=== PATIENT | male | born 1945 | race Caucasian/White ===

== ENCOUNTER 2017-12-01 16:47 | Emergency (ER) | payer MEDICARE, OTHER ==
[2017-12-01] MEDS ORDERED: NORMAL SALINE 1000 ML 1,000 ML IV ONE (18:16)
--- NOTE | 2017-12-01 18:20 | ER Document Report ---
ED General - General Chief Complaint: Abnormal Lab Results Stated Complaint: POSSIBLE DEHYDRATED Time Seen by Provider: 12/01/17 18:16 Mode of Arrival: Ambulatory Information source: Patient Notes: 72 yr old male was sent in by pcp for concern for dehydration. Pt notes he has poor diet, denies any vomiting or diarrhea. Pt noted ot have normal .8 cr but on recheck labs was up to 1.7. pt denies any complaints TRAVEL OUTSIDE OF THE [place] IN LAST 30 DAYS: No - HPI Onset: Last week Onset/Duration: Sudden Quality of pain: No pain Severity: Mild Pain Level: Denies Associated symptoms: Other Exacerbated by: Denies Relieved by: Denies Similar symptoms previously: Yes Recently seen / treated by doctor: Yes - Related Data Allergies/Adverse Reactions: No Known Allergies Allergy (Verified 12/01/17 16:48) Past Medical History - Social History Smoking Status: Never Smoker Cigarette use (# per day): No Chew tobacco use (# tins/day): No Smoking Education Provided: No Frequency of alcohol use: 6 pack every other week Drug Abuse: None Family History: Reviewed & Not Pertinent Patient has suicidal ideation: No Patient has homicidal ideation: No - Past Medical History Cardiac Medical History: Reports: Hx Hypertension Pulmonary Medical History: Reports: Hx COPD Renal/ Medical History: Denies: Hx Peritoneal Dialysis GI Medical History: Reports: Hx Cirrhosis, Hx Gastroesophageal Reflux Disease Psychiatric Medical History: Reports: Hx Depression Past Surgical History: Reports: Hx Orthopedic Surgery - Back Sx x2 - Immunizations Hx Diphtheria, Pertussis, Tetanus Vaccination: Yes Review of Systems - Review of Systems Notes: REVIEW OF SYSTEMS: CONSTITUTIONAL : Denies fever, chills, or sweats. Denies recent illness. EENT: Denies eye, ear, throat, or mouth pain or symptoms. Denies nasal or sinus congestion or discharge. Denies throat, tongue, or mouth swelling or difficulty swallowing. CARDIOVASCULAR: Denies chest pain. Denies palpitations or racing or irregular heart beat. Denies ankle edema. RESPIRATORY: Denies cough, cold, or chest congestion. Denies shortness of breath, difficulty breathing, or wheezing. GASTROINTESTINAL: Admits to poor appetite GENITOURINARY: Denies difficulty urinating, painful urination, burning, frequency, blood in urine, or discharge. MUSCULOSKELETAL: Denies back or neck pain or stiffness. Denies joint pain or swelling. SKIN: Denies rash, lesions or sores. HEMATOLOGIC : Denies easy bruising or bleeding. LYMPHATIC: Denies swollen, enlarged glands. NEUROLOGICAL: Denies confusion or altered mental status. Denies passing out or loss of consciousness. Denies dizziness or lightheadedness. Denies headache. Denies weakness or paralysis or loss of use of either side. Denies problems with gait or speech. Denies sensory loss, numbness, or tingling. Denies seizures. PSYCHIATRIC: Denies anxiety or stress. Denies depression, suicidal ideation, or homicidal ideation. ALL OTHER SYSTEMS REVIEWED AND NEGATIVE. Dictation was performed using [employer] voice recognition software PHYSICAL EXAMINATION: GENERAL: Well-appearing, well-nourished and in no acute distress. HEAD: Atraumatic, normocephalic. EYES: Pupils equal round and reactive to light, extraocular movements intact, sclera anicteric, conjunctiva are normal. ENT: Nares patent, oropharynx clear without exudates. Moist mucous membranes. NECK: Normal range of motion, supple without lymphadenopathy LUNGS: Breath sounds clear to auscultation bilaterally and equal. No wheezes rales or rhonchi. HEART: Regular rate and rhythm without murmurs ABDOMEN: Soft, nontender, nondistended abdomen. No guarding, no rebound. No masses appreciated. Musculoskeletal: Normal range of motion, no pitting or edema. No cyanosis. NEUROLOGICAL: Cranial nerves grossly intact. Normal speech, normal gait. Normal sensory, motor exams PSYCH: Normal mood, normal affect. SKIN: Warm, Dry, normal turgor, no rashes or lesions noted. Physical Exam - Vital signs Vitals: Temp Pulse Resp BP Pulse Ox 98.3 F 67 16 118/64 97 12/01/17 17:11 12/01/17 17:11 12/01/17 17:11 12/01/17 17:11 12/01/17 17:11 Course - Re-evaluation Re-evalutation: 12/01/17 18:22 Lab work pending I will give the patient IV fluids at primary care physician's request 12/01/17 20:17 Patient's creatinine is noted to be 1.0, this is significantly better than that creatinine was 1.7 that was reported by primary care physician. Patient otherwise looks well is in no distress, he was given IV fluids and I believe he is stable for discharge, we discussed ammonia levels as well as liver enzymes, patient has been encouraged to decrease his alcohol intake After performing a Medical Screening Examination, I estimate there is LOW risk for ACUTE APPENDICITIS, BOWEL OBSTRUCTION, ACUTE CHOLECYSTITIS, PERFORATED DIVERTICULITIS, INCARCERATED HERNIA, PANCREATITIS, TESTICULAR TORSION or PERFORATED ULCER, thus I consider the discharge disposition reasonable. Also, there is no evidence or peritonitis, sepsis, or toxicity. I have reevaluated this patient multiple times and no significant life threatening changes are noted. The patient and I have discussed the diagnosis and risks, and we agree with discharging home with close follow-up with the understanding that symptoms and presentations can change. We also discussed returning to the Emergency Department immediately if new or worsening symptoms occur. We have discussed the symptoms which are most concerning (e.g., bloody stool, fever, changing or worsening pain, intractable vomiting - standard verbal up date) that necessitate immediate return. - Vital Signs Vital signs: Temp Pulse Resp BP Pulse Ox 97.7 F 67 16 148/69 H 98 12/01/17 19:32 12/01/17 19:32 12/01/17 19:32 12/01/17 19:32 12/01/17 19:32 - Laboratory Result Diagrams: 12/01/17 18:43 12/01/17 18:43 Laboratory results interpreted by me: 12/01/17 12/01/17 18:43 18:43 RBC 3.79 L Hgb 12.8 L Hct 37.2 L MCV 98 H MCH 33.8 H RDW 15.5 H Plt Count 101 L Sodium 132.2 L Potassium 3.4 L Chloride 95 L Total Bilirubin 2.8 H Direct Bilirubin 1.8 H AST 125 H ALT 75 H Alkaline Phosphatase 321 H Discharge - Discharge Clinical Impression: Dehydration, Elevated liver enzymes Condition: Stable Disposition: HOME, SELF-CARE Instructions: Dehydration ([facility]) Additional Instructions: Follow up with your physician tomorrow for further care or return to the ED IMMEDIATELY if symptoms worsen or new concerns occur. If you cannot afford to follow up with your primary care physician a list of low cost clinics have been provided at the end of your discharge papers as well.
[2017-12-01 18:52] LABS: ABSOLUTE BASOPHILS # (AUTO) 0.1 10^3/uL (0.0-0.2); ABSOLUTE EOSINOPHILS # (AUTO) 0.1 10^3/uL (0.0-0.6); ABSOLUTE LYMPHOCYTES (AUTO) 1.2 10^3/uL (0.5-4.7); ABSOLUTE MONOCYTES (AUTO) 0.5 10^3/uL (0.1-1.4); ABSOLUTE NEUT (AUTO) 3.3 10^3/uL (1.7-8.2); BASOPHILS % (AUTO) 1.5 % (0-2); EOSINOPHILS % (AUTO) 2.9 % (0-6); HEMATOCRIT 37.2 % (37.9-51.0); HEMOGLOBIN 12.8 g/dL (13.5-17.0); LYMPHOCYTES % (AUTO) 22.6 % (13-45); MEAN CORPUSCULAR HEMOGLOBIN 33.8 pg (27.0-33.4); MEAN CORPUSCULAR HGB CONC 34.4 g/dL (32.0-36.0); MEAN CORPUSCULAR VOLUME 98 fl (80-97); MONOCYTES % (AUTO) 9.7 % (3-13); PLATELET COUNT 101 10^3/uL (150-450); RED BLOOD COUNT 3.79 10^6/uL (4.35-5.55); RED CELL DISTRIBUTION WIDTH 15.5 % (11.5-14.0); SEGMENTED NEUTROPHILS % (AUTO) 63.3 % (42-78); TOTAL CELLS COUNTED % (AUTO) 100 %; WHITE BLOOD COUNT 5.2 10^3/uL (4.0-10.5)
[2017-12-01 19:22] LABS: ALANINE AMINOTRANSFERASE 75 U/L (21-72); ALBUMIN 3.9 g/dL (3.5-5.0); ALKALINE PHOSPHATASE 321 U/L (38-126); ANION GAP 11 (5-19); ASPARTATE AMINO TRANSFERASE 125 U/L (17-59); BILIRUBIN,DIRECT 1.8 mg/dL (0.0-0.4); BILIRUBIN,TOTAL 2.8 mg/dL (0.2-1.3); BLOOD UREA NITROGEN 15 mg/dL (7-20); CALCIUM 9.3 mg/dL (8.4-10.2); CARBON DIOXIDE 26 mmol/L (22-30); CHLORIDE 95 mmol/L (98-107); GLUCOSE 92 mg/dL (75-110); POTASSIUM 3.4 mmol/L (3.6-5.0); SODIUM 132.2 mmol/L (137-145)
[2017-12-01 19:35] VITALS: BP 148/69
== END 2017-12-01 19:34 | disposition home or self-care (01) ==
LOC: ER 16:47
DX: E86.0 Dehydration (principal); R74.8 Abnormal levels of other serum enzymes; I10 Essential (primary) hypertension; J44.9 Chronic obstructive pulmonary disease, unspecified
CPT/HCPCS: 99283; 96360; 36415; 85025; 80053; J7030

== ENCOUNTER 2018-03-20 15:04 | Inpatient (IN) | payer MEDICARE, OTHER ==
--- NOTE | 2018-03-20 16:24 | ER Document Report ---
ED Medical Screen (RME) - General Chief Complaint: Alcohol Withdrawl Stated Complaint: STOMACH PAIN Time Seen by Provider: 03/20/18 16:15 Notes: RAPID MEDICAL EVALUATION DISCLOSURE I have seen this patient as part of a Rapid Medical Evaluation and, if applicable, placed any initially appropriate orders. The patient will be seen and fully evaluated, including a full history and physical exam, by a provider ( in Main ED or Fast Track) when a room becomes available. 72-year-old male PMH EtOH abuse (approximately 6-12 beers daily for many years) sent here by his physician for evaluation of hallucinations and possible alcohol withdrawal. Patient had his last drink approximately 4-5 days ago. He has been having visual hallucinations including a woman standing in his bedroom all night watching him, a tractor in his front yard, a group of soldiers marching down the street (patient's states none of these things happen). He is also having auditory hallucinations including thinking that the AC is blowing air when it is turned off and that the water is running when it is turned off. He denies any abdominal pain tremors fevers chills dysuria. EXAM Clear to auscultation bilaterally Regular rate and rhythm no abdominal tenderness No peripheral tremors or active hallucinations TRAVEL OUTSIDE OF THE [place] IN LAST 30 DAYS: No - Related Data Allergies/Adverse Reactions: No Known Allergies Allergy (Verified 12/01/17 16:48) Past Medical History - Past Medical History Cardiac Medical History: Reports: Hx Hypertension Pulmonary Medical History: Reports: Hx COPD Renal/ Medical History: Denies: Hx Peritoneal Dialysis GI Medical History: Reports: Hx Cirrhosis, Hx Gastroesophageal Reflux Disease Psychiatric Medical History: Reports: Hx Depression Past Surgical History: Reports: Hx Orthopedic Surgery - Back Sx x2 - Immunizations Hx Diphtheria, Pertussis, Tetanus Vaccination: Yes Physical Exam - Vital signs Vitals: Temp Pulse Resp BP Pulse Ox 97.8 F 79 14 123/81 96 03/20/18 15:16 03/20/18 15:16 03/20/18 15:16 03/20/18 15:16 03/20/18 15:16 Course - Vital Signs Vital signs: Temp Pulse Resp BP Pulse Ox 97.8 F 79 14 123/81 96 03/20/18 15:16 03/20/18 15:16 03/20/18 15:16 03/20/18 15:16 03/20/18 15:16
[2018-03-20 17:14] LABS: ABSOLUTE LYMPHOCYTES (AUTO) 0.8 10^3/uL (0.5-4.7); ABSOLUTE MONOCYTES (AUTO) 0.5 10^3/uL (0.1-1.4); ABSOLUTE NEUT (AUTO) 4.1 10^3/uL (1.7-8.2); BASOPHILS % (AUTO) 0.5 % (0-2); EOSINOPHILS % (AUTO) 0.5 % (0-6); HEMATOCRIT 38.3 % (37.9-51.0); HEMOGLOBIN 12.9 g/dL (13.5-17.0); LYMPHOCYTES % (AUTO) 14.5 % (13-45); MEAN CORPUSCULAR HEMOGLOBIN 33.8 pg (27.0-33.4); MEAN CORPUSCULAR HGB CONC 33.8 g/dL (32.0-36.0); MEAN CORPUSCULAR VOLUME 100 fl (80-97); MONOCYTES % (AUTO) 8.5 % (3-13); RED BLOOD COUNT 3.83 10^6/uL (4.35-5.55); RED CELL DISTRIBUTION WIDTH 14.1 % (11.5-14.0); TOTAL CELLS COUNTED % (AUTO) 100 %; WHITE BLOOD COUNT 5.4 10^3/uL (4.0-10.5)
[2018-03-20 17:16] LABS: PLATELET COUNT 84 10^3/uL (150-450)
[2018-03-20 17:32] LABS: ALANINE AMINOTRANSFERASE 57 U/L (21-72); ALKALINE PHOSPHATASE 310 U/L (38-126); ANION GAP 14 (5-19); ASPARTATE AMINO TRANSFERASE 120 U/L (17-59); BILIRUBIN,DIRECT 1.6 mg/dL (0.0-0.4); BILIRUBIN,TOTAL 3.3 mg/dL (0.2-1.3); BLOOD UREA NITROGEN 13 mg/dL (7-20); CALCIUM 9.6 mg/dL (8.4-10.2); CARBON DIOXIDE 30 mmol/L (22-30); CHLORIDE 93 mmol/L (98-107); GLUCOSE 85 mg/dL (75-110); POTASSIUM 3.3 mmol/L (3.6-5.0); SALICYLATE 9.4 mg/dL (2.0-20.0); SODIUM 137.2 mmol/L (137-145); TOTAL PROTEIN 8.3 g/dL (6.3-8.2)
[2018-03-20 17:33] LABS: ACETAMINOPHEN < 10 ug/mL (10-30); ALCOHOL < 10 mg/dL (NONE DETECTED)
[2018-03-20] MEDS ORDERED: THIAMINE HCL 100 MG, FOLIC ACID 1 MG in NORMAL SALINE 250 ML IV ONE (18:33)
[2018-03-20] MEDS ORDERED: LORAZEPAM INJ 2 MG/1 ML VIAL IV ONE (18:33)
--- NOTE | 2018-03-20 18:53 | ER Document Report ---
ED General - General Chief Complaint: Alcohol Withdrawl Stated Complaint: STOMACH PAIN Time Seen by Provider: 03/20/18 16:15 Mode of Arrival: Ambulatory Information source: Patient Notes: 72-year-old male with a history of COPD, hypertension, alcohol abuse presents with visual and auditory hallucinations. Patient states that he wants to quit drinking. He states his last drink was 4 days ago. He admits to heavy drinking over the last 30-40 years. He states that he was drinking 6-12 beers on a consistent basis. Patient denies prior history of alcohol withdrawal. is at the bedside and states patient has been hallucinating, seeing men in his room, tractors in the driveway and complaining of hearing the air conditioning blowing in his ear. He denies any tactile hallucinations. reports that the patient has had multiple falls over the last few days. He is alert and oriented 3. He denies any headache, nausea, vomiting, tremors. He states "I just want to get some medication and go home". TRAVEL OUTSIDE OF THE [place] IN LAST 30 DAYS: No - Related Data Allergies/Adverse Reactions: No Known Allergies Allergy (Verified 12/01/17 16:48) Past Medical History - General Information source: Patient, Relative - Social History Smoking Status: Former Smoker Frequency of alcohol use: Heavy Drug Abuse: None Lives with: Spouse/Significant other Family History: Reviewed & Not Pertinent Patient has suicidal ideation: No Patient has homicidal ideation: No - Past Medical History Cardiac Medical History: Reports: Hx Hypertension Pulmonary Medical History: Reports: Hx COPD Renal/ Medical History: Denies: Hx Peritoneal Dialysis GI Medical History: Reports: Hx Cirrhosis, Hx Gastroesophageal Reflux Disease Psychiatric Medical History: Reports: Hx Depression Past Surgical History: Reports: Hx Orthopedic Surgery - Back Sx x2 - Immunizations Hx Diphtheria, Pertussis, Tetanus Vaccination: Yes Review of Systems - Review of Systems Notes: Patient denies fever, chills, vomiting, headache, ear pain, sore throat, cough, chest pain, shortness of breath, abdominal pain, back pain, dysuria, hematuria, rash, SI/HI. Physical Exam - Vital signs Vitals: Temp Pulse Resp BP Pulse Ox 97.8 F 79 14 123/81 96 03/20/18 15:16 03/20/18 15:16 03/20/18 15:16 03/20/18 15:16 03/20/18 15:16 Interpretation: Normal. No: Hypotensive, Hypertensive, Febrile - Notes Notes: PHYSICAL EXAMINATION: GENERAL: Frail, alert in no acute distress. HEAD: Atraumatic, normocephalic. EYES: Pupils equal round and reactive to light, extraocular movements intact, sclera anicteric, conjunctiva are normal. ENT: Nares patent, oropharynx clear without exudates. dry mucous membranes. NECK: Normal range of motion, supple without lymphadenopathy LUNGS: Breath sounds clear to auscultation bilaterally and equal. No wheezes rales or rhonchi. HEART: Regular rate and rhythm without murmurs ABDOMEN: Soft, nontender, nondistended abdomen. No guarding, no rebound. No masses appreciated. Musculoskeletal: Ecchymosis of the right elbow, right clavicle. NEUROLOGICAL: Tremulous ,cranial nerves grossly intact. Normal speech, normal gait. Normal sensory, motor exams PSYCH: Normal mood, normal affect. Denies SI, HI. Admits to auditory and visual hallucinations. SKIN: Warm, Dry, normal turgor, no rashes or lesions noted. Course - Re-evaluation Re-evalutation: Laboratory 03/20/18 03/20/18 03/20/18 16:43 16:43 16:43 WBC 5.4 RBC 3.83 L Hgb 12.9 L Hct 38.3 MCV 100 H MCH 33.8 H MCHC 33.8 RDW 14.1 H Plt Count 84 L Seg Neutrophils % 76.0 Lymphocytes % 14.5 Monocytes % 8.5 Eosinophils % 0.5 Basophils % 0.5 Absolute Neutrophils 4.1 Absolute Lymphocytes 0.8 Absolute Monocytes 0.5 Absolute Eosinophils 0.0 Absolute Basophils 0.0 Sodium 137.2 Potassium 3.3 L Chloride 93 L Carbon Dioxide 30 Anion Gap 14 BUN 13 Creatinine 1.10 Est GFR ( Amer) > 60 Est GFR (Non-Af Amer) > 60 Glucose 85 Calcium 9.6 Total Bilirubin 3.3 H Direct Bilirubin 1.6 H Neonat Total Bilirubin Not Reportable Neonat Direct Bilirubin Not Reportable Neonat Indirect Bili Not Reportable AST 120 H ALT 57 Alkaline Phosphatase 310 H Ammonia Creatine Kinase 129 CK-MB (CK-2) Troponin I Total Protein 8.3 H Albumin 4.0 Lipase 116.0 Urine Color Urine Appearance Urine pH Ur Specific [place] Urine Protein Urine Glucose (UA) Urine Ketones Urine Blood Urine Nitrite Urine Bilirubin Urine Urobilinogen Ur Leukocyte Esterase Urine WBC (Auto) Urine RBC (Auto) U Hyaline Cast (Auto) Squamous Epi Cells Auto Urine Mucus (Auto) Urine Ascorbic Acid Salicylates 9.4 Urine Opiates Screen Urine Methadone Screen Acetaminophen < 10 L Ur Barbiturates Screen Ur Phencyclidine Scrn Ur Amphetamines Screen U Benzodiazepines Scrn Urine Cocaine Screen U Marijuana (THC) Screen Serum Alcohol < 10 03/20/18 03/20/18 03/20/18 16:43 16:43 21:15 WBC RBC Hgb Hct MCV MCH MCHC RDW Plt Count Seg Neutrophils % Lymphocytes % Monocytes % Eosinophils % Basophils % Absolute Neutrophils Absolute Lymphocytes Absolute Monocytes Absolute Eosinophils Absolute Basophils Sodium Potassium Chloride Carbon Dioxide Anion Gap BUN Creatinine Est GFR ( Amer) Est GFR (Non-Af Amer) Glucose Calcium Total Bilirubin Direct Bilirubin Neonat Total Bilirubin Neonat Direct Bilirubin Neonat Indirect Bili AST ALT Alkaline Phosphatase Ammonia Creatine Kinase CK-MB (CK-2) 1.36 Troponin I < 0.012 Total Protein Albumin Lipase Urine Color YELLOW Urine Appearance SLIGHTLY-CLOUDY Urine pH 7.0 Ur Specific [place] 1.011 Urine Protein NEGATIVE Urine Glucose (UA) NEGATIVE Urine Ketones TRACE H Urine Blood SMALL H Urine Nitrite NEGATIVE Urine Bilirubin NEGATIVE Urine Urobilinogen 4.0 H Ur Leukocyte Esterase LARGE H Urine WBC (Auto) 82 Urine RBC (Auto) 3 U Hyaline Cast (Auto) 2 Squamous Epi Cells Auto <1 Urine Mucus (Auto) RARE Urine Ascorbic Acid NEGATIVE Salicylates Urine Opiates Screen Urine Methadone Screen Acetaminophen Ur Barbiturates Screen Ur Phencyclidine Scrn Ur Amphetamines Screen U Benzodiazepines Scrn Urine Cocaine Screen U Marijuana (THC) Screen Serum Alcohol 03/20/18 03/20/18 21:15 22:00 WBC RBC Hgb Hct MCV MCH MCHC RDW Plt Count Seg Neutrophils % Lymphocytes % Monocytes % Eosinophils % Basophils % Absolute Neutrophils Absolute Lymphocytes Absolute Monocytes Absolute Eosinophils Absolute Basophils Sodium Potassium Chloride Carbon Dioxide Anion Gap BUN Creatinine Est GFR ( Amer) Est GFR (Non-Af Amer) Glucose Calcium Total Bilirubin Direct Bilirubin Neonat Total Bilirubin Neonat Direct Bilirubin Neonat Indirect Bili AST ALT Alkaline Phosphatase Ammonia 14.4 Creatine Kinase CK-MB (CK-2) Troponin I Total Protein Albumin Lipase Urine Color Urine Appearance Urine pH Ur Specific [place] Urine Protein Urine Glucose (UA) Urine Ketones Urine Blood Urine Nitrite Urine Bilirubin Urine Urobilinogen Ur Leukocyte Esterase Urine WBC (Auto) Urine RBC (Auto) U Hyaline Cast (Auto) Squamous Epi Cells Auto Urine Mucus (Auto) Urine Ascorbic Acid Salicylates Urine Opiates Screen NEGATIVE Urine Methadone Screen NEGATIVE Acetaminophen Ur Barbiturates Screen NEGATIVE Ur Phencyclidine Scrn NEGATIVE Ur Amphetamines Screen NEGATIVE U Benzodiazepines Scrn NEGATIVE Urine Cocaine Screen NEGATIVE U Marijuana (THC) Screen NEGATIVE Serum Alcohol 03/20/18 23:17 72-year-old male with known alcoholism presents with visual and auditory hallucinations. Patient states that he wants to quit drinking. He states his last drink was 4 days prior to arrival. is at the bedside and states patient has had multiple falls and has been hallucinating for the last 2 days. Upon arrival vitals were reviewed. EKG shows patient to be in normal sinus rhythm. Exam is significant for mild tremors, active hallucinations. Patient received IV fluids, Ativan 2 mg IV. He continued to have hallucinations and became more tremulous. Valium 10 mg was then administered. Patient has elevated liver enzymes. Ammonia level is within normal limits. Urinalysis is consistent with urinary tract infection. Rocephin ordered. Patient will be admitted for alcohol withdrawal. - Vital Signs Vital signs: Temp Pulse Resp BP Pulse Ox 97.7 F 79 16 109/58 L 97 03/20/18 23:05 03/20/18 23:05 03/20/18 23:05 03/20/18 23:05 03/20/18 23:05 - Laboratory Result Diagrams: 03/20/18 16:43 03/20/18 16:43 Laboratory results interpreted by me: 03/20/18 03/20/18 16:43 16:43 RBC 3.83 L Hgb 12.9 L MCV 100 H MCH 33.8 H RDW 14.1 H Plt Count 84 L Potassium 3.3 L Chloride 93 L Total Bilirubin 3.3 H Direct Bilirubin 1.6 H AST 120 H Alkaline Phosphatase 310 H Total Protein 8.3 H Acetaminophen < 10 L - Diagnostic Test Radiology reviewed: Image reviewed, Reports reviewed - EKG Interpretation by Mo EKG shows normal: Sinus rhythm Rate: Normal Rhythm: NSR Discharge - Discharge Clinical Impression: Elevated alkaline phosphatase level, Alcohol withdrawal delirium UTI (urinary tract infection) Qualifiers: Urinary tract infection type: site unspecified Hematuria presence: without hematuria Qualified Code(s): N39.0 - Urinary tract infection, site not specified Alcohol dependence Qualifiers: Substance use status: in withdrawal Complication of substance-induced condition : with delirium Qualified Code(s): F10.231 - Alcohol dependence with withdrawal delirium Condition: Fair Disposition: ADMITTED INPATIENT Admitting Provider: Hospitalist Unit Admitted: [facility]
--- NOTE | 2018-03-20 19:08 | RADIOLOGY REPORT (SQ) ---
EXAM DESCRIPTION: ELBOW RIGHT AP/LAT COMPLETED DATE/TIME: 03/20/2018 6:56 pm REASON FOR STUDY: fall COMPARISON: None. NUMBER OF VIEWS: Two views. TECHNIQUE: AP and lateral radiographic images acquired of the right elbow. LIMITATIONS: None. FINDINGS: MINERALIZATION: Normal. BONES: No acute fracture or dislocation. No worrisome bone lesions. JOINT: No effusion. SOFT TISSUES: No soft tissue swelling. No foreign body. OTHER: No other significant finding. IMPRESSION: NEGATIVE STUDY OF THE RIGHT ELBOW. NO RADIOGRAPHIC EVIDENCE OF ACUTE INJURY. TECHNICAL DOCUMENTATION: JOB ID: [id number] [employer]- All Rights Reserved Reading location - IP/workstation name: [email or web address]
--- NOTE | 2018-03-20 19:11 | RADIOLOGY REPORT (SQ) ---
EXAM DESCRIPTION: CLAVICLE RIGHT COMPLETED DATE/TIME: 03/20/2018 6:56 pm REASON FOR STUDY: pain/fall COMPARISON: None. NUMBER OF VIEWS: Two views. TECHNIQUE: Frontal and angled images were acquired of the right clavicle. LIMITATIONS: None. FINDINGS: MINERALIZATION: Normal. BONES: Old right proximal clavicle fracture. SOFT TISSUES: No obvious swelling or foreign body. OTHER: No other significant finding. IMPRESSION: Old clavicular fracture. No acute abnormality. TECHNICAL DOCUMENTATION: JOB ID: [id number] [employer] - [employer]- All Rights Reserved Reading location - IP/workstation name: [email or web address]
--- NOTE | 2018-03-20 19:12 | RADIOLOGY REPORT (SQ) ---
EXAM DESCRIPTION: CHEST 2 VIEWS COMPLETED DATE/TIME: 03/20/2018 6:56 pm REASON FOR STUDY: fall COMPARISON: 02/01/2014 EXAM PARAMETERS: NUMBER OF VIEWS: two views TECHNIQUE: Digital Frontal and Lateral radiographic views of the chest acquired. RADIATION DOSE: NA LIMITATIONS: none FINDINGS: LUNGS AND PLEURA: No opacities, masses or pneumothorax. No pleural effusion. MEDIASTINUM AND HILAR STRUCTURES: No masses or contour abnormalities. HEART AND VASCULAR STRUCTURES: Heart normal size. No evidence for failure. BONES: Old fracture of the proximal right clavicle. Compression changes in the mid thoracic spine wi th kyphoplasty. HARDWARE: None in the chest. OTHER: No other significant finding. IMPRESSION: NO ACUTE RADIOGRAPHIC FINDING IN THE CHEST. TECHNICAL DOCUMENTATION: JOB ID: [id number] [employer]- All Rights Reserved Reading location - IP/workstation name: [email or web address]
--- NOTE | 2018-03-20 19:16 | RADIOLOGY REPORT (SQ) ---
EXAM DESCRIPTION: CT HEAD WITHOUT COMPLETED DATE/TIME: 03/20/2018 7:05 pm REASON FOR STUDY: confusion COMPARISON: MR 06/05/2013 CT 06/04/2013 TECHNIQUE: Axial images acquired through the brain without intravenous contrast. Images reviewed wi th bone, brain and subdural windows. Additional sagittal and coronal reconstructions were generated. Images stored on PACS. All CT scanners at this facility use dose modulation, iterative reconstruction, and/or weight based d osing when appropriate to reduce radiation dose to as low as reasonably achievable (ALARA). [facility]: Dose Right [facility]: CareDose [facility]: Dose Right [facility]: Teradose 4D [facility]: [employer] RADIATION DOSE: CT Rad equipment meets quality standard of care and radiation dose reduction techniq ues were employed. CTDIvol: 53.2 mGy. DLP: 991 mGy-cm. mGy. LIMITATIONS: None. FINDINGS: VENTRICLES: Normal size and contour. CEREBRUM: Cortical atrophy. No masses. No hemorrhage. No midline shift. No evidence for acute inf arction. Normal buck/white matter differentiation. No areas of low density in the white matter. CEREBELLUM: No masses. No hemorrhage. No alteration of density. No evidence for acute infarction. EXTRAAXIAL SPACES: No fluid collections. No masses. ORBITS AND GLOBE: No intra- or extraconal masses. Normal contour of globe without masses. CALVARIUM: No fracture. PARANASAL SINUSES: No fluid or mucosal thickening. SOFT TISSUES: No mass or hematoma. OTHER: No other significant finding. IMPRESSION: Involutional changes with no acute intracranial imaging findings. EVIDENCE OF ACUTE STROKE: NO. COMMENT: Quality ID # [id number]: Final reports with documentation of one or more dose reduction techniques (e.g., Automated exposure control, adjustment of the mA and/or kV according to patient size, use of iterative reconstruction technique) TECHNICAL DOCUMENTATION: JOB ID: [id number] [employer]- All Rights Reserved Reading location - IP/workstation name: [email or web address]
[2018-03-20] MEDS ORDERED: NORMAL SALINE 1000 ML 1,000 ML IV ONE (20:30)
[2018-03-20] MEDS ORDERED: DIAZEPAM INJ 10 MG/2 ML DISP.SYRIN IV ONE (20:31)
[2018-03-20] MEDS ORDERED: ONDANSETRON HCL INJ/PF 4 MG/2 ML SDV IV PRN (20:52)
[2018-03-20] MEDS ORDERED: HALOPERIDOL LACTATE INJ 5 MG/1 ML VIAL IV PRN (21:00)
[2018-03-20] MEDS ORDERED: HALOPERIDOL LACTATE INJ 5 MG/1 ML VIAL IM ONE (21:00)
[2018-03-20] MEDS ORDERED: LORAZEPAM INJ 2 MG/1 ML VIAL IV PRN (21:02)
[2018-03-20 21:40] LABS: APPEARANCE,URINE SLIGHTLY-CLOUDY; BILIRUBIN,URINE NEGATIVE (NEGATIVE); COLOR,URINE YELLOW; GLUCOSE, URINE NEGATIVE (NEGATIVE); KETONES,URINE TRACE mg/dL (NEGATIVE); LEUKOCYTE ESTERASE,URINE LARGE (NEGATIVE); NITRITE,URINE NEGATIVE (NEGATIVE); PROTEIN,URINE NEGATIVE (NEGATIVE); URINE SPECIFIC GRAVITY 1.011
[2018-03-20 21:52] LABS: URINE AMPHETAMINES SCREEN NEGATIVE; URINE BARBITURATES SCREEN NEGATIVE; URINE BENZODIAZEPINES SCREEN NEGATIVE; URINE COCAINE SCREEN NEGATIVE; URINE MARIJUANA (THC) SCREEN NEGATIVE; URINE METHADONE SCREEN NEGATIVE; URINE PHENCYCLIDINE SCREEN NEGATIVE
--- NOTE | 2018-03-20 22:01 | PDOC H&P ---
History of Present Illness Admission Date/PCP: 03/20/18 21:06 History of Present Illness: JEANNINE LAZO JR is a 72 year old male patient with past medical history of HTN, COPD, cirrhosis of the liver and alcohol dependence brought by his for confusion and visual hallucination. During my encounter patient is agitated and trying to get out of bed so is not source of history brief history is obtained from his and ER attending note. Per ER attending note patient states that his last drink was 4 days ago he admits to heavy drinking over the last 13 years. He states that he was drinking 6-12 cans of beer per day despite having cirrhosis of the liver. Per his patient has been hallucinating seeing men in his room, tractor since then traveling into complaining of hearing the air conditioning blowing in his ear she also reports this patient has had multiple falls over the last few days. Further history and review of system is unobtainable. Past Medical History Cardiac Medical History: Reports: Hypertension Pulmonary Medical History: Reports: Chronic Obstructive Pulmonary Disease (COPD) GI Medical History: Reports: Cirrhosis, Gastroesophageal Reflux Disease Psychiatric Medical History: Reports: Depression Past Surgical History Past Surgical History: Reports: Orthopedic Surgery - Back Sx x2 Social History Lives with: Spouse/Significant other Smoking Status: Former Smoker Frequency of Alcohol Use: Heavy Family History Family History: Reviewed & Not Pertinent, Other - Unobtainable Parental Family History Reviewed: Yes Children Family History Reviewed: Yes Sibling(s) Family History Reviewed.: Yes Medication/Allergy Home Medications: Omeprazole [Prilosec 20 mg Capsule] 20 mg PO DAILY 04/23/13 Fluoxetine HCl [Prozac 20 mg Capsule] 40 mg PO QHS 06/02/13 Aripiprazole [Abilify 5 mg Tablet] 5 mg PO DAILY 06/05/13 Finasteride [Proscar 5 mg Tablet] 5 mg PO DAILY 06/05/13 Hyoscyamine Sulfate 0.125 mg PO BID 06/05/13 Megestrol Acetate 40 mg PO BID 06/05/13 Thiamine HCl [Vitamin B-1] 100 mg PO DAILY 06/05/13 Atenolol [Tenormin 25 mg Tablet] 50 mg PO DAILY #0 06/06/13 Nifedipine [Procardia XL 30 mg Tablet] 30 mg PO Q12 #60 tab.er.24 06/06/13 Potassium Chloride [K-Tab] 40 meq PO DAILY 06/07/13 Oxycodone HCl/Acetaminophen [Percocet 5-325 mg Tablet] 1 - 2 tab PO Q4H PRN #10 tablet 10/30/14 Allergies/Adverse Reactions: No Known Allergies Allergy (Verified 12/01/17 16:48) Review of Systems ROS unobtainable: Due to mental status Physical Exam Vital Signs: Temp Pulse Resp BP Pulse Ox 97.8 F 79 18 131/99 H 98 03/20/18 15:16 03/20/18 15:16 03/20/18 20:31 03/20/18 20:31 03/20/18 20:31 Intake & Output 03/19/18 03/20/18 03/21/18 06:59 06:59 06:59 Output Total 475 Balance -475 General appearance: PRESENT: mild distress Eye exam: PRESENT: scleral icterus Respiratory exam: PRESENT: clear to auscultation jacky. ABSENT: rales, rhonchi, wheezes Cardiovascular exam: PRESENT: RRR. ABSENT: diastolic murmur, rubs, systolic murmur GI/Abdominal exam: PRESENT: other - No ascites Psychiatric exam: PRESENT: agitated Results Laboratory Results: 03/20/18 21:15 Urine Color YELLOW Urine Appearance SLIGHTLY-CLOUDY Urine pH 7.0 Ur Specific [place] 1.011 Urine Protein NEGATIVE Urine Glucose (UA) NEGATIVE Urine Ketones TRACE H Urine Blood SMALL H Urine Nitrite NEGATIVE Ur Leukocyte Esterase LARGE H Urine WBC (Auto) 82 Urine RBC (Auto) 3 Impressions: Chest X-Ray 03/20/18 18:34 IMPRESSION: NO ACUTE RADIOGRAPHIC FINDING IN THE CHEST. Clavicle X-Ray 03/20/18 18:34 IMPRESSION: Old clavicular fracture. No acute abnormality. Elbow X-Ray 03/20/18 18:34 IMPRESSION: NEGATIVE STUDY OF THE RIGHT ELBOW. NO RADIOGRAPHIC EVIDENCE OF ACUTE INJURY. Head CT 03/20/18 18:34 IMPRESSION: Involutional changes with no acute intracranial imaging findings. EVIDENCE OF ACUTE STROKE: NO. Assessment & Plan - Diagnosis (1) Hepatic encephalopathy Is this a current diagnosis for this admission?: Yes Plan: Patient has been started on lactulose and thiamine was folic acid. Ativan 2 mg IV every 2 hours as needed, Haldol 5 mg every 4 hours as needed and diazepam 10 mg p.o. every 6 hours Close monitoring for aspiration and accidental fall (2) COPD (chronic obstructive pulmonary disease) Qualifiers: Chronic bronchitis type: unspecified Is this a current diagnosis for this admission?: Yes Plan: Bruising treatment (3) Hypertension Qualifiers: Hypertension type: essential hypertension Qualified Code(s): I10 - Essential (primary) hypertension Is this a current diagnosis for this admission?: Yes Plan: His home medications. (4) Alcohol dependence Qualifiers: Complication of substance-induced condition: with hallucinations Is this a current diagnosis for this admission?: Yes Plan: Patient has been started on thiamine folic acid and magnesium. We will check his CBC, BMP and ammonia level in a.m. - Time Time Spent: 30 to 50 Minutes - Inpatient Certification Medical Necessity: Need Close Monitoring Due to Risk of Patient Decompensation, Need For IV Fluids
[2018-03-20] MEDS ORDERED: CEFTRIAXONE 1 GM/D5W RTU 1 GM/50 ML RTUPB IV ONE (23:00)
[2018-03-20] MEDS ORDERED: CEFTRIAXONE 1 GM/D5W RTU 1 GM/50 ML RTUPB IV SCH (23:45)
[2018-03-21] MEDS ORDERED: LACTULOSE SYRUP 20 GM/30 ML UDCUP PO SCH
[2018-03-21] MEDS ORDERED: CEFTRIAXONE 1 GM/D5W RTU 1 GM/50 ML RTUPB IV ONE (00:43)
[2018-03-21] MEDS: DIAZEPAM 5 MG TABLET PO SCH ×5 (01:19→23:16)
[2018-03-21] MEDS: POTASSI CL 20 MEQ/NS 1L 1000 ML IV PRN ×2 (01:19→15:33)
[2018-03-21 05:58] LABS: ABSOLUTE EOSINOPHILS # (AUTO) 0.1 10^3/uL (0.0-0.6); ABSOLUTE LYMPHOCYTES (AUTO) 0.8 10^3/uL (0.5-4.7); ABSOLUTE MONOCYTES (AUTO) 0.3 10^3/uL (0.1-1.4); ABSOLUTE NEUT (AUTO) 1.8 10^3/uL (1.7-8.2); BASOPHILS % (AUTO) 1.1 % (0-2); EOSINOPHILS % (AUTO) 3.2 % (0-6); HEMATOCRIT 32.5 % (37.9-51.0); HEMOGLOBIN 11.3 g/dL (13.5-17.0); LYMPHOCYTES % (AUTO) 25.9 % (13-45); MEAN CORPUSCULAR HGB CONC 34.7 g/dL (32.0-36.0); MEAN CORPUSCULAR VOLUME 98 fl (80-97); MONOCYTES % (AUTO) 10.2 % (3-13); RED BLOOD COUNT 3.31 10^6/uL (4.35-5.55); RED CELL DISTRIBUTION WIDTH 14.1 % (11.5-14.0); SEGMENTED NEUTROPHILS % (AUTO) 59.6 % (42-78); TOTAL CELLS COUNTED % (AUTO) 100 %
[2018-03-21 06:10] LABS: ANION GAP 8 (5-19); BLOOD UREA NITROGEN 13 mg/dL (7-20); CALCIUM 8.1 mg/dL (8.4-10.2); CARBON DIOXIDE 27 mmol/L (22-30); CHLORIDE 102 mmol/L (98-107); GLUCOSE 108 mg/dL (75-110); POTASSIUM 3.1 mmol/L (3.6-5.0); SODIUM 136.8 mmol/L (137-145)
[2018-03-21 06:41] LABS: PLATELET COUNT 46 10^3/uL (150-450)
--- NOTE | 2018-03-21 07:31 | EKG REPORT ---
SEVERITY:- BORDERLINE ECG - SINUS RHYTHM BORDERLINE T ABNORMALITIES, ANT-LAT LEADS BORDERLINE PROLONGED QT INTERVAL : Confirmed by: Chris Bernstein MD 21-Mar-2018 07:30:52
[2018-03-21] MEDS: MAGNESIUM SULFATE/D5W 1 GM/100 ML RTUPB IV SCH ×3 (08:35→11:55)
[2018-03-21] MEDS: LACTULOSE SYRUP 20 GM/30 ML UDCUP PO SCH ×2 (09:51→17:29)
[2018-03-21] MEDS: POTASSIUM CHLORIDE 10 MEQ TABLET.SA PO SCH ×2 (09:52→22:49)
[2018-03-21] MEDS ORDERED: CEFTRIAXONE 1 GM/D5W RTU 1 GM/50 ML RTUPB IV SCH (10:00)
--- NOTE | 2018-03-21 12:48 | PSYCHOLOGICAL NOTE ---
Psych Note - Psych Note Psych Note: Reason for evaluation: Abruptly ceasing alcohol use and experiencing hallucinations Contact Permissions: Patient's Magalie Nguyen [id number] Patient is a 72-year-old male. Patient reports that he stopped drinking 5 days ago because it was killing his body physically and because his said that this was it and gave him an ultimatum. Patient reports he first realized that he was seeing things when he tried to stop drinking several weeks ago he saw people cutting trees in the yard but his told him that there were not people cutting trees in the yard. Patient reports that before coming to the emergency room he saw men coming in the bedroom but they were not real. Patient reports that he thought those things through and that is why he knew it was not real and that his also helped him remind him that it was not real. Patient reports that right now his memory is bad he cannot remember his ' s phone number but gives consent for mental health to talk to his . Patient reports that he has not seen any "crazy things today". Patient reports prior to stopping alcohol use he drank every day for 17 years and can "easily drink 12 beers". Patient reports that he has never been to an inpatient psychiatric hospital has never had any mental health diagnosis or issues and has only seen a therapist once for "marriage counseling years ago before clinician was even born". Patient reports he has a good support system with his as they still live together. Medication recommendation made by contracted [facility] provider Dr. Devin Md. includes: 1. Begin Effexor 37.5 twice a day 2. Begin Buspar 10 mg twice a day 3. Continue all other scheduled meds Diagnosis: 291.81 (F10.232) Alcohol withdrawal with perceptual disturbances. Impression/Plan: Patient is psychiatrically cleared. Please re-consult if additional recommendations are needed. Clinician observed patient is watching television, is calm and cooperative, and does not appear to be responding to any internal stimuli during the assessment. Clinician observed patient has a history of long-term alcohol use and abruptly stopped drinking which may cause symptoms of delirium ( perceptual disturbances) associated with alcohol withdrawal . Clinician observed patient has insight into his condition and also has a supportive system at home. Clinician observed patient still appears slightly confused as clinician observed while in the room the phone began ringing, he picked the phone up and continuously said hello while it was still ringing unaware that it was ringing or that he needed to press a button to answer the phone. Attending hospitalist in agreement with plan and disposition. Consulted with Dr. Saunders regarding the management and care of patient.
--- NOTE | 2018-03-21 14:13 | PDOC PROGRESS REPORT ---
Subjective Progress Note for:: 03/21/18 Subjective:: Patient is resting in bed. is at the bedside. He denies any chest pain, shortness of breath or dyspnea. He denies any cough. Denies any nausea, vomiting or abdominal pain. He denies any significant arthralgias or myalgias. His states his mentation has improved. Remaining review of systems negative Reason For Visit: HEPATIC ENCEPHALOPATHY Physical Exam Vital Signs: Temp Pulse Resp BP Pulse Ox 98.5 F 79 16 128/65 H 96 03/21/18 12:02 03/21/18 12:02 03/21/18 12:02 03/21/18 12:02 03/21/18 12:02 Intake & Output 03/20/18 03/21/18 03/22/18 06:59 06:59 06:59 Intake Total 460 Output Total 2075 Balance -1615 Weight 57.9 kg General appearance: PRESENT: no acute distress, thin, well-developed, other - multiple eccyhmotic areas on forearms Head exam: PRESENT: normocephalic Eye exam: PRESENT: conjunctiva pink, EOMI, PERRLA. ABSENT: scleral icterus Ear exam: PRESENT: normal external ear exam Mouth exam: PRESENT: moist, tongue midline Teeth exam: PRESENT: poor dentation Neck exam: ABSENT: carotid bruit, JVD, lymphadenopathy, thyromegaly Respiratory exam: PRESENT: clear to auscultation jacky, symmetrical, unlabored. ABSENT: rales, rhonchi, wheezes Cardiovascular exam: PRESENT: RRR. ABSENT: diastolic murmur, rubs, systolic murmur Pulses: PRESENT: normal dorsalis pedis pul Vascular exam: PRESENT: normal capillary refill GI/Abdominal exam: PRESENT: normal bowel sounds, soft. ABSENT: distended, guarding, mass, organolmegaly, rebound, tenderness Rectal exam: PRESENT: deferred Extremities exam: PRESENT: full ROM. ABSENT: calf tenderness, clubbing, pedal edema Musculoskeletal exam: PRESENT: ambulatory, full ROM, other - multiple bruises along bilateral forearms Neurological exam: PRESENT: alert, awake, oriented to person, oriented to place , CN II-XII grossly intact, other - confused to time and situation. ABSENT: motor sensory deficit Psychiatric exam: PRESENT: flat affect Focused psych exam: PRESENT: catatonic Skin exam: PRESENT: dry, skin tears - bruising, warm Results Laboratory Results: 03/21/18 05:34 03/21/18 05:34 03/20/18 03/20/18 03/21/18 21:15 22:00 05:34 WBC 3.0 L RBC 3.31 L Hgb 11.3 L Hct 32.5 L MCV 98 H MCH 34.0 H MCHC 34.7 RDW 14.1 H Plt Count 46 L Seg Neutrophils % 59.6 Lymphocytes % 25.9 Monocytes % 10.2 Eosinophils % 3.2 Basophils % 1.1 Absolute Neutrophils 1.8 Absolute Lymphocytes 0.8 Absolute Monocytes 0.3 Absolute Eosinophils 0.1 Absolute Basophils 0.0 Sodium Potassium Chloride Carbon Dioxide Anion Gap BUN Creatinine Est GFR ( Amer) Est GFR (Non-Af Amer) Glucose Calcium Magnesium Ammonia 14.4 Urine Color YELLOW Urine Appearance SLIGHTLY-CLOUDY Urine pH 7.0 Ur Specific [place] 1.011 Urine Protein NEGATIVE Urine Glucose (UA) NEGATIVE Urine Ketones TRACE H Urine Blood SMALL H Urine Nitrite NEGATIVE Ur Leukocyte Esterase LARGE H Urine WBC (Auto) 82 Urine RBC (Auto) 3 03/21/18 03/21/18 05:34 05:34 WBC RBC Hgb Hct MCV MCH MCHC RDW Plt Count Seg Neutrophils % Lymphocytes % Monocytes % Eosinophils % Basophils % Absolute Neutrophils Absolute Lymphocytes Absolute Monocytes Absolute Eosinophils Absolute Basophils Sodium 136.8 L Potassium 3.1 L Chloride 102 Carbon Dioxide 27 Anion Gap 8 BUN 13 Creatinine 0.77 Est GFR ( Amer) > 60 Est GFR (Non-Af Amer) > 60 Glucose 108 Calcium 8.1 L Magnesium 1.3 L Ammonia 17.3 Urine Color Urine Appearance Urine pH Ur Specific [place] Urine Protein Urine Glucose (UA) Urine Ketones Urine Blood Urine Nitrite Ur Leukocyte Esterase Urine WBC (Auto) Urine RBC (Auto) Impressions: Chest X-Ray 03/20/18 18:34 IMPRESSION: NO ACUTE RADIOGRAPHIC FINDING IN THE CHEST. Clavicle X-Ray 03/20/18 18:34 IMPRESSION: Old clavicular fracture. No acute abnormality. Elbow X-Ray 03/20/18 18:34 IMPRESSION: NEGATIVE STUDY OF THE RIGHT ELBOW. NO RADIOGRAPHIC EVIDENCE OF ACUTE INJURY. Head CT 03/20/18 18:34 IMPRESSION: Involutional changes with no acute intracranial imaging findings. EVIDENCE OF ACUTE STROKE: NO. Assessment & Plan - Diagnosis (1) Alcohol withdrawal delirium Is this a current diagnosis for this admission?: Yes Plan: Patient is receiving valium 10 mg q6h, thiamine and folic acid. No signs of DTs presently (2) COPD (chronic obstructive pulmonary disease) Qualifiers: Chronic bronchitis type: unspecified Is this a current diagnosis for this admission?: Yes Plan: Continue current nebulizers and inhalers (3) Hepatic encephalopathy Is this a current diagnosis for this admission?: Yes Plan: Continue lactulose (4) Hypertension Qualifiers: Hypertension type: essential hypertension Qualified Code(s): I10 - Essential (primary) hypertension Is this a current diagnosis for this admission?: Yes Plan: Patient is borderline hypotensive at the present time we will hold blood pressure medicine and observe (5) UTI (urinary tract infection) Qualifiers: Urinary tract infection type: site unspecified Hematuria presence: without hematuria Qualified Code(s): N39.0 - Urinary tract infection, site not specified Is this a current diagnosis for this admission?: Yes Plan: Continue ceftriaxone cultures pending - Time Time Spent with patient: 25-34 minutes Total Critical Time (Minutes): 15 Medications reviewed and adjusted accordingly: Yes - Inpatient Certification Based on my medical assessment, after consideration of the patient's comorbidities, presenting symptoms, or acuity I expect that the services needed warrant INPATIENT care.: Yes I certify that my determination is in accordance with my understanding of Medicare's requirements for reasonable and necessary INPATIENT services [42 CFR 412.3e].: Yes Medical Necessity: Significant Comorbidiites Make Outpatient Treatment Too Risky , Need For IV Fluids
--- NOTE | 2018-03-21 14:37 | Physician Advisory Note ---
Physician Advisor ProgressNote .: [facility], I have reviewed the medical record for this patient. Physician Advisor Statement: Please consider documenting, if you agree: 1. "pancytopenia, suspect due to " [cirrhosis?] 2. "underweight with protein-calorie malnutrition [state mild, mod, or severe] with BMI 18.8, ____[?wt loss, ?appetite loss, ]" [if possible, give specifics on intake, wt loss, loss of SQ fat & muscle mass, diminished hand gamemaster strength, & clinical importance such as (A) nutritional assessment ordered, (B) modified diet or supplements ordered, (C) additional labs ordered, (D) prolonged wound healing time, (E) delayed infxn clearance] Status: 72yo w/COPD, HTN, cirrhosis, EtOHism, 4 days post last drink, 2 days into hallucinations, with tremors, UTI, pancytopenia, hypokalemia, hypomagnesemia, malnutrition, high LFTs, .... Just had mittens removed at 06: 34 this AM. Continuing on Valium q6h, which can build up in such a pt and produce worsening hepatic encephalopathy/hypersomnolence (as can an infection that is not sufficiently treated), while benzo tx is absolutely needed to avoid DTs and treat withdrawal hallucinations. BP's unstable (low is common w/ cirrhosis, but highs associated with acute EtOH withdrawal)..... Medicare pt, definitely will need 2nd MN in hospital, appropriate for Inpateint status. CK
[2018-03-21] MEDS ORDERED: THIAMINE HCL 100 MG, FOLIC ACID 1 MG in NORMAL SALINE 250 ML IV SCH (18:00)
[2018-03-21] MEDS ORDERED: CEFTRIAXONE SODIUM 1,000 MG in DEXTROSE 5%-WATER 50 ML IV SCH (22:00)
[2018-03-21] MEDS: BUSPIRONE HCL 10 MG TABLET PO SCH (22:49)
[2018-03-21] MEDS ORDERED: VENLAFAXINE HCL 37.5 MG CAP.SR.24H PO ONE (22:53)
[2018-03-21] MEDS: VENLAFAXINE HCL 37.5 MG CAP.SR.24H PO SCH (22:53)
[2018-03-22] MEDS: POTASSI CL 20 MEQ/NS 1L 1000 ML IV PRN (02:48)
[2018-03-22 04:58] LABS: ABSOLUTE EOSINOPHILS # (AUTO) 0.1 10^3/uL (0.0-0.6); ABSOLUTE LYMPHOCYTES (AUTO) 0.8 10^3/uL (0.5-4.7); ABSOLUTE MONOCYTES (AUTO) 0.4 10^3/uL (0.1-1.4); ABSOLUTE NEUT (AUTO) 3.3 10^3/uL (1.7-8.2); EOSINOPHILS % (AUTO) 1.6 % (0-6); HEMATOCRIT 33.5 % (37.9-51.0); HEMOGLOBIN 11.6 g/dL (13.5-17.0); LYMPHOCYTES % (AUTO) 16.6 % (13-45); MEAN CORPUSCULAR HGB CONC 34.6 g/dL (32.0-36.0); MEAN CORPUSCULAR VOLUME 98 fl (80-97); MONOCYTES % (AUTO) 7.9 % (3-13); RED BLOOD COUNT 3.42 10^6/uL (4.35-5.55); SEGMENTED NEUTROPHILS % (AUTO) 72.9 % (42-78); TOTAL CELLS COUNTED % (AUTO) 100 %; WHITE BLOOD COUNT 4.6 10^3/uL (4.0-10.5)
[2018-03-22 05:14] LABS: ANION GAP 8 (5-19); BLOOD UREA NITROGEN 10 mg/dL (7-20); CALCIUM 8.1 mg/dL (8.4-10.2); CARBON DIOXIDE 24 mmol/L (22-30); CHLORIDE 103 mmol/L (98-107); GLUCOSE 96 mg/dL (75-110); POTASSIUM 3.8 mmol/L (3.6-5.0); SODIUM 135.4 mmol/L (137-145)
[2018-03-22 05:27] LABS: PLATELET COUNT 46 10^3/uL (150-450)
[2018-03-22] MEDS: DIAZEPAM 5 MG TABLET PO SCH ×3 (06:04→22:27)
[2018-03-22] MEDS: BUSPIRONE HCL 10 MG TABLET PO SCH ×2 (10:29→22:27)
[2018-03-22] MEDS: LACTULOSE SYRUP 20 GM/30 ML UDCUP PO SCH (10:30)
[2018-03-22] MEDS: VENLAFAXINE HCL 37.5 MG CAP.SR.24H PO SCH ×2 (10:30→22:27)
--- NOTE | 2018-03-22 12:02 | PDOC PROGRESS REPORT ---
Subjective Progress Note for:: 03/22/18 Subjective:: No complaints. No further seizures. Reports that it been a little over 24 hours since his last drink when he seized. Withdrawal symptoms are currently well managed. Reason For Visit: HEPATIC ENCEPHALOPATHY Physical Exam Vital Signs: Temp Pulse Resp BP Pulse Ox 98.0 F 85 16 133/79 H 97 03/22/18 08:27 03/22/18 08:27 03/22/18 08:27 03/22/18 08:27 03/22/18 08:27 Intake & Output 03/21/18 03/22/18 03/23/18 05:59 05:59 05:59 Intake Total 0 2899 1409 Output Total 1375 3175 1700 Balance -6835 -276 -291 Weight 127 lb 10.362 oz 127 lb 13.89 oz General appearance: PRESENT: no acute distress Respiratory exam: PRESENT: clear to auscultation jacky Cardiovascular exam: PRESENT: RRR GI/Abdominal exam: PRESENT: soft Extremities exam: ABSENT: other - No edema Neurological exam: PRESENT: awake - A little cloudy, CN II-XII grossly intact, other - No tremor. ABSENT: motor sensory deficit Psychiatric exam: PRESENT: appropriate affect Focused psych exam: ABSENT: restlessness Skin exam: PRESENT: warm Results Laboratory Results: 03/22/18 04:35 03/22/18 04:35 03/22/18 03/22/18 03/22/18 04:35 04:35 04:35 WBC 4.6 RBC 3.42 L Hgb 11.6 L Hct 33.5 L MCV 98 H MCH 34.0 H MCHC 34.6 RDW 14.0 Plt Count 46 L Seg Neutrophils % 72.9 Lymphocytes % 16.6 Monocytes % 7.9 Eosinophils % 1.6 Basophils % 1.0 Absolute Neutrophils 3.3 Absolute Lymphocytes 0.8 Absolute Monocytes 0.4 Absolute Eosinophils 0.1 Absolute Basophils 0.0 Sodium 135.4 L Potassium 3.8 Chloride 103 Carbon Dioxide 24 Anion Gap 8 BUN 10 Creatinine 0.72 Est GFR ( Amer) > 60 Est GFR (Non-Af Amer) > 60 Glucose 96 Calcium 8.1 L Magnesium 1.4 L Ammonia 12.1 Impressions: Chest X-Ray 03/20/18 18:34 IMPRESSION: NO ACUTE RADIOGRAPHIC FINDING IN THE CHEST. Clavicle X-Ray 03/20/18 18:34 IMPRESSION: Old clavicular fracture. No acute abnormality. Elbow X-Ray 03/20/18 18:34 IMPRESSION: NEGATIVE STUDY OF THE RIGHT ELBOW. NO RADIOGRAPHIC EVIDENCE OF ACUTE INJURY. Head CT 03/20/18 18:34 IMPRESSION: Involutional changes with no acute intracranial imaging findings. EVIDENCE OF ACUTE STROKE: NO. Assessment & Plan - Diagnosis (1) Alcohol withdrawal seizure Is this a current diagnosis for this admission?: Yes Plan: No need for long-term antiseizure medications. patient was strongly counseled about complete abstinence from alcohol (2) Alcohol dependence Qualifiers: Substance use status: in withdrawal Complication of substance-induced condition: with delirium Qualified Code(s): F10.231 - Alcohol dependence with withdrawal delirium Is this a current diagnosis for this admission?: Yes Plan: I think his current clouding is probably due to Valium. We will start backing off on the dose. (3) UTI (urinary tract infection) Qualifiers: Urinary tract infection type: site unspecified Hematuria presence: without hematuria Qualified Code(s): N39.0 - Urinary tract infection, site not specified Is this a current diagnosis for this admission?: Yes Plan: I will change him over to oral antibiotics. I would continue those for a total of 14 days.
[2018-03-22] MEDS: MAGNESIUM SULFATE/D5W 1 GM/100 ML RTUPB IV SCH ×2 (13:47→14:53)
[2018-03-22] MEDS ORDERED: DIAZEPAM 5 MG TABLET PO SCH (14:00)
[2018-03-22 14:40] LABS: ABSOLUTE RETICS # 0.034 10^6/uL (0.028-0.122); RETICULOCYTE COUNT (AUTO) 0.97 % (0.66-2.85)
[2018-03-22] MEDS: TAMSULOSIN HCL 0.4 MG CAP.SR.24H PO SCH (17:52)
[2018-03-22] MEDS: CEFPODOXIME 200 MG TABLET PO SCH (22:27)
[2018-03-23] MEDS: DIAZEPAM 5 MG TABLET PO SCH ×3 (05:03→22:19)
[2018-03-23 05:50] LABS: ANION GAP 9 (5-19); BLOOD UREA NITROGEN 12 mg/dL (7-20); CALCIUM 8.8 mg/dL (8.4-10.2); CARBON DIOXIDE 26 mmol/L (22-30); CHLORIDE 99 mmol/L (98-107); GLUCOSE 88 mg/dL (75-110); IRON 50.1 ug/dL (49-181); PHOSPHORUS 3.1 mg/dL (2.5-4.5); POTASSIUM 3.4 mmol/L (3.6-5.0); SODIUM 134.3 mmol/L (137-145)
[2018-03-23 07:29] LABS: MEAN CORPUSCULAR HEMOGLOBIN 33.5 pg (27.0-33.4); MEAN CORPUSCULAR HGB CONC 34.4 g/dL (32.0-36.0); MEAN CORPUSCULAR VOLUME 98 fl (80-97); RED BLOOD COUNT 3.59 10^6/uL (4.35-5.55); RED CELL DISTRIBUTION WIDTH 13.8 % (11.5-14.0); WHITE BLOOD COUNT 3.6 10^3/uL (4.0-10.5)
[2018-03-23 07:30] LABS: PLATELET COUNT 45 10^3/uL (150-450)
[2018-03-23] MEDS: CEFPODOXIME 200 MG TABLET PO SCH ×2 (09:04→22:20)
[2018-03-23] MEDS: BUSPIRONE HCL 10 MG TABLET PO SCH ×2 (09:04→22:19)
[2018-03-23] MEDS: THIAMINE HCL 100 MG TABLET PO SCH (09:04)
[2018-03-23] MEDS: VENLAFAXINE HCL 37.5 MG CAP.SR.24H PO SCH ×2 (09:04→22:20)
[2018-03-23] MEDS: MAGNESIUM SULFATE/D5W 1 GM/100 ML RTUPB IV SCH ×2 (09:05→10:34)
--- NOTE | 2018-03-23 11:27 | PDOC PROGRESS REPORT ---
Subjective Progress Note for:: 03/23/18 Subjective:: Awake today. Still quite clouded. Was able to tell me where he is but not the year. No complaints Reason For Visit: HEPATIC ENCEPHALOPATHY Physical Exam Vital Signs: Temp Pulse Resp BP Pulse Ox 98.5 F 73 16 129/76 H 98 03/23/18 08:00 03/23/18 08:00 03/23/18 08:00 03/23/18 08:00 03/23/18 08:00 Intake & Output 03/22/18 03/23/18 03/24/18 05:59 05:59 05:59 Intake Total 2899 3038 11 Output Total 3177 5060 Balance -276 -1712 11 Weight 125 lb 7.088 oz General appearance: PRESENT: no acute distress, cooperative, other - Cachectic Respiratory exam: PRESENT: clear to auscultation jacky Cardiovascular exam: PRESENT: RRR GI/Abdominal exam: PRESENT: soft Extremities exam: ABSENT: other - No edema Neurological exam: PRESENT: awake, oriented to person, oriented to place, CN II- XII grossly intact. ABSENT: oriented to time, oriented to situation, motor sensory deficit Psychiatric exam: PRESENT: flat affect. ABSENT: normal mood Skin exam: PRESENT: warm Results Laboratory Results: 03/23/18 04:59 03/23/18 04:59 03/22/18 03/23/18 03/23/18 04:35 04:59 04:59 WBC 3.6 L RBC 3.59 L Hgb 12.0 L Hct 35.0 L MCV 98 H MCH 33.5 H MCHC 34.4 RDW 13.8 Plt Count 45 L Retic Count (auto) 0.97 Absolute Retic 0.034 Sodium 134.3 L Potassium 3.4 L Chloride 99 Carbon Dioxide 26 Anion Gap 9 BUN 12 Creatinine 0.63 Est GFR ( Amer) > 60 Est GFR (Non-Af Amer) > 60 Glucose 88 Calcium 8.8 Phosphorus 3.1 Magnesium 1.5 L Iron 50.1 Albumin 3.0 L Vitamin B12 747.0 Folate 12.10 Impressions: Chest X-Ray 03/20/18 18:34 IMPRESSION: NO ACUTE RADIOGRAPHIC FINDING IN THE CHEST. Clavicle X-Ray 03/20/18 18:34 IMPRESSION: Old clavicular fracture. No acute abnormality. Elbow X-Ray 03/20/18 18:34 IMPRESSION: NEGATIVE STUDY OF THE RIGHT ELBOW. NO RADIOGRAPHIC EVIDENCE OF ACUTE INJURY. Head CT 03/20/18 18:34 IMPRESSION: Involutional changes with no acute intracranial imaging findings. EVIDENCE OF ACUTE STROKE: NO. Assessment & Plan - Diagnosis (1) Alcohol withdrawal delirium Is this a current diagnosis for this admission?: Yes Plan: He is required an extra dose of IV Ativan for agitation. This is day 4 of withdrawal. Continue current dose of benzodiazepine (2) Alcohol dependence Qualifiers: Substance use status: in withdrawal Complication of substance-induced condition: with delirium Qualified Code(s): F10.231 - Alcohol dependence with withdrawal delirium Is this a current diagnosis for this admission?: Yes (3) UTI (urinary tract infection) Qualifiers: Urinary tract infection type: site unspecified Hematuria presence: without hematuria Qualified Code(s): N39.0 - Urinary tract infection, site not specified Is this a current diagnosis for this admission?: Yes Plan: Continue Vantin (4) Thrombocytopenia Is this a current diagnosis for this admission?: Yes Plan: 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 Now that he is more oriented I will try taking out the catheter and keep an eye on his urinary output.
[2018-03-23] MEDS: TAMSULOSIN HCL 0.4 MG CAP.SR.24H PO SCH (17:56)
[2018-03-24 05:15] LABS: HEMATOCRIT 36.6 % (37.9-51.0); HEMOGLOBIN 12.6 g/dL (13.5-17.0); MEAN CORPUSCULAR HEMOGLOBIN 33.6 pg (27.0-33.4); MEAN CORPUSCULAR HGB CONC 34.4 g/dL (32.0-36.0); MEAN CORPUSCULAR VOLUME 98 fl (80-97); RED BLOOD COUNT 3.74 10^6/uL (4.35-5.55); RED CELL DISTRIBUTION WIDTH 14.2 % (11.5-14.0)
[2018-03-24 05:25] LABS: ALANINE AMINOTRANSFERASE 59 U/L (21-72); ALBUMIN 3.1 g/dL (3.5-5.0); ANION GAP 12 (5-19); ASPARTATE AMINO TRANSFERASE 86 U/L (17-59); BLOOD UREA NITROGEN 11 mg/dL (7-20); CARBON DIOXIDE 26 mmol/L (22-30); CHLORIDE 97 mmol/L (98-107); GLUCOSE 84 mg/dL (75-110); PHOSPHORUS 3.8 mg/dL (2.5-4.5); POTASSIUM 3.4 mmol/L (3.6-5.0); SODIUM 135.4 mmol/L (137-145)
[2018-03-24 06:05] LABS: PLATELET COUNT 47 10^3/uL (150-450)
[2018-03-24] MEDS: DIAZEPAM 5 MG TABLET PO SCH (06:20)
[2018-03-24] MEDS: MAGNESIUM SULFATE/D5W 1 GM/100 ML RTUPB IV SCH ×2 (09:31→10:18)
[2018-03-24] MEDS: CEFPODOXIME 200 MG TABLET PO SCH ×2 (09:31→21:29)
[2018-03-24] MEDS: THIAMINE HCL 100 MG TABLET PO SCH (09:31)
[2018-03-24] MEDS: VENLAFAXINE HCL 37.5 MG CAP.SR.24H PO SCH ×2 (09:31→21:30)
[2018-03-24] MEDS: BUSPIRONE HCL 10 MG TABLET PO SCH ×2 (09:31→21:29)
[2018-03-24] MEDS ORDERED: LORAZEPAM 1 MG TABLET PO PRN (12:04)
--- NOTE | 2018-03-24 12:11 | PDOC PROGRESS REPORT ---
Subjective Progress Note for:: 03/24/18 Subjective:: No new issues. Off scheduled benzodiazepines. Ready for discharge to rehab. Reason For Visit: HEPATIC ENCEPHALOPATHY Physical Exam Vital Signs: Temp Pulse Resp BP Pulse Ox 97.3 F 83 20 106/63 96 03/24/18 07:18 03/24/18 07:18 03/24/18 07:18 03/24/18 07:18 03/24/18 07:18 Intake & Output 03/23/18 03/24/18 03/25/18 05:59 05:59 05:59 Intake Total 3038 694 500 Output Total 4750 1450 350 Balance -1712 -756 150 Weight 125 lb 7.088 oz 122 lb 9.232 oz General appearance: PRESENT: no acute distress. ABSENT: well-nourished Respiratory exam: PRESENT: clear to auscultation jacky Cardiovascular exam: PRESENT: RRR GI/Abdominal exam: PRESENT: soft Extremities exam: ABSENT: other - No edema Neurological exam: PRESENT: awake, oriented to person, oriented to place. ABSENT: oriented to time, oriented to situation Psychiatric exam: PRESENT: flat affect Skin exam: PRESENT: warm Results Laboratory Results: 03/24/18 04:22 03/24/18 04:22 03/24/18 03/24/18 04:22 04:22 WBC 4.0 RBC 3.74 L Hgb 12.6 L Hct 36.6 L MCV 98 H MCH 33.6 H MCHC 34.4 RDW 14.2 H Plt Count 47 L Sodium 135.4 L Potassium 3.4 L Chloride 97 L Carbon Dioxide 26 Anion Gap 12 BUN 11 Creatinine 0.66 Est GFR ( Amer) > 60 Est GFR (Non-Af Amer) > 60 Glucose 84 Calcium 9.0 Phosphorus 3.8 Magnesium 1.5 L AST 86 H ALT 59 Albumin 3.1 L Impressions: Chest X-Ray 03/20/18 18:34 IMPRESSION: NO ACUTE RADIOGRAPHIC FINDING IN THE CHEST. Clavicle X-Ray 03/20/18 18:34 IMPRESSION: Old clavicular fracture. No acute abnormality. Elbow X-Ray 03/20/18 18:34 IMPRESSION: NEGATIVE STUDY OF THE RIGHT ELBOW. NO RADIOGRAPHIC EVIDENCE OF ACUTE INJURY. Head CT 03/20/18 18:34 IMPRESSION: Involutional changes with no acute intracranial imaging findings. EVIDENCE OF ACUTE STROKE: NO. Assessment & Plan - Diagnosis (1) Alcohol withdrawal delirium Is this a current diagnosis for this admission?: Yes Plan: Mostly just clouding of his sensorium at this point. Time will tell how much this resolves. (2) Alcohol dependence Qualifiers: Substance use status: in withdrawal Complication of substance-induced condition: with delirium Qualified Code(s): F10.231 - Alcohol dependence with withdrawal delirium Is this a current diagnosis for this admission?: Yes Plan: Has completed detox now (3) UTI (urinary tract infection) Qualifiers: Urinary tract infection type: site unspecified Hematuria presence: without hematuria Qualified Code(s): N39.0 - Urinary tract infection, site not specified Is this a current diagnosis for this admission?: Yes Plan: Continue Vantin to complete a 14 day course (4) Thrombocytopenia Is this a current diagnosis for this admission?: Yes Plan: 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 Flomax was started this admission. Monitor urinary output. No evidence of obstruction thus far, I will check a bladder scan to be sure
[2018-03-24] MEDS: TAMSULOSIN HCL 0.4 MG CAP.SR.24H PO SCH (17:30)
[2018-03-25] MEDS: VENLAFAXINE HCL 37.5 MG CAP.SR.24H PO SCH ×2 (09:52→21:23)
[2018-03-25] MEDS: CEFPODOXIME 200 MG TABLET PO SCH ×2 (09:53→21:23)
[2018-03-25] MEDS: FINASTERIDE 5 MG TABLET PO SCH (09:53)
[2018-03-25] MEDS: BUSPIRONE HCL 10 MG TABLET PO SCH ×2 (09:53→21:23)
[2018-03-25] MEDS: THIAMINE HCL 100 MG TABLET PO SCH (09:53)
--- NOTE | 2018-03-25 10:43 | PDOC PROGRESS REPORT ---
Subjective Progress Note for:: 03/25/18 Subjective:: No new issues. Ready for discharge to rehab. Reason For Visit: HEPATIC ENCEPHALOPATHY Physical Exam Vital Signs: Temp Pulse Resp BP Pulse Ox 98.4 F 91 16 111/68 98 03/25/18 07:26 03/25/18 07:26 03/25/18 07:26 03/25/18 07:26 03/25/18 07:26 Intake & Output 03/24/18 03/25/18 03/26/18 05:59 05:59 05:59 Intake Total 694 1422 505 Output Total 1450 1050 0 Balance -756 372 505 Weight 122 lb 9.232 oz 124 lb 8.979 oz General appearance: PRESENT: no acute distress Respiratory exam: PRESENT: clear to auscultation jacky Cardiovascular exam: PRESENT: RRR GI/Abdominal exam: PRESENT: soft Extremities exam: ABSENT: other - No edema Neurological exam: PRESENT: awake, oriented to person, oriented to place. ABSENT: oriented to time, oriented to situation Psychiatric exam: PRESENT: flat affect Skin exam: PRESENT: warm Results Laboratory Results: 03/24/18 04:22 03/24/18 04:22 Impressions: Chest X-Ray 03/20/18 18:34 IMPRESSION: NO ACUTE RADIOGRAPHIC FINDING IN THE CHEST. Clavicle X-Ray 03/20/18 18:34 IMPRESSION: Old clavicular fracture. No acute abnormality. Elbow X-Ray 03/20/18 18:34 IMPRESSION: NEGATIVE STUDY OF THE RIGHT ELBOW. NO RADIOGRAPHIC EVIDENCE OF ACUTE INJURY. Head CT 03/20/18 18:34 IMPRESSION: Involutional changes with no acute intracranial imaging findings. EVIDENCE OF ACUTE STROKE: NO. Assessment & Plan - Diagnosis (1) Alcohol withdrawal delirium Is this a current diagnosis for this admission?: Yes Plan: Mostly just clouding of his sensorium at this point. Time will tell how much this resolves. (2) Alcohol dependence Qualifiers: Substance use status: in withdrawal Complication of substance-induced condition: with delirium Qualified Code(s): F10.231 - Alcohol dependence with withdrawal delirium Is this a current diagnosis for this admission?: Yes Plan: Has completed detox now (3) UTI (urinary tract infection) Qualifiers: Urinary tract infection type: site unspecified Hematuria presence: without hematuria Qualified Code(s): N39.0 - Urinary tract infection, site not specified Is this a current diagnosis for this admission?: Yes Plan: Continue Vantin to complete a 14 day course (4) Thrombocytopenia Is this a current diagnosis for this admission?: Yes Plan: 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 Stable (5) Urinary retention Is this a current diagnosis for this admission?: Yes Plan: Resume Proscar. Flomax was started this admission. Monitor urinary output.
[2018-03-25] MEDS: MAGNESIUM OXIDE 400 MG TABLET PO SCH ×2 (14:28→17:23)
[2018-03-25] MEDS: TAMSULOSIN HCL 0.4 MG CAP.SR.24H PO SCH (17:23)
[2018-03-26 05:16] LABS: HEMOGLOBIN 12.7 g/dL (13.5-17.0); MEAN CORPUSCULAR HEMOGLOBIN 33.7 pg (27.0-33.4); MEAN CORPUSCULAR HGB CONC 34.2 g/dL (32.0-36.0); MEAN CORPUSCULAR VOLUME 99 fl (80-97); RED BLOOD COUNT 3.76 10^6/uL (4.35-5.55); RED CELL DISTRIBUTION WIDTH 14.4 % (11.5-14.0); WHITE BLOOD COUNT 4.1 10^3/uL (4.0-10.5)
[2018-03-26 05:21] LABS: PLATELET COUNT 74 10^3/uL (150-450)
[2018-03-26 05:30] LABS: ALBUMIN 3.1 g/dL (3.5-5.0); ANION GAP 11 (5-19); BLOOD UREA NITROGEN 20 mg/dL (7-20); CALCIUM 9.3 mg/dL (8.4-10.2); CARBON DIOXIDE 27 mmol/L (22-30); CHLORIDE 99 mmol/L (98-107); GLUCOSE 85 mg/dL (75-110); PHOSPHORUS 3.4 mg/dL (2.5-4.5); POTASSIUM 3.5 mmol/L (3.6-5.0); SODIUM 136.7 mmol/L (137-145)
[2018-03-26] MEDS: BUSPIRONE HCL 10 MG TABLET PO SCH ×2 (10:01→21:55)
[2018-03-26] MEDS: FINASTERIDE 5 MG TABLET PO SCH (10:01)
[2018-03-26] MEDS: MAGNESIUM OXIDE 400 MG TABLET PO SCH ×3 (10:01→17:03)
[2018-03-26] MEDS: CEFPODOXIME 200 MG TABLET PO SCH ×2 (10:01→21:55)
[2018-03-26] MEDS: THIAMINE HCL 100 MG TABLET PO SCH (10:02)
[2018-03-26] MEDS: VENLAFAXINE HCL 37.5 MG CAP.SR.24H PO SCH ×2 (10:02→21:55)
--- NOTE | 2018-03-26 11:03 | PDOC PROGRESS REPORT ---
Subjective Progress Note for:: 03/26/18 Subjective:: Currently somnolent. Ate all his breakfast. Reason For Visit: HEPATIC ENCEPHALOPATHY Physical Exam Vital Signs: Temp Pulse Resp BP Pulse Ox 97.8 F 82 12 115/76 96 03/26/18 07:14 03/26/18 07:14 03/26/18 07:14 03/26/18 07:14 03/26/18 07:14 Intake & Output 03/25/18 03/26/18 03/27/18 05:59 05:59 05:59 Intake Total 1422 1560 1100 Output Total 1050 0 Balance 372 1560 1100 Weight 122 lb 9.232 oz 123 lb 10.869 oz General appearance: PRESENT: no acute distress Respiratory exam: PRESENT: clear to auscultation jacky Cardiovascular exam: PRESENT: RRR GI/Abdominal exam: PRESENT: soft Neurological exam: PRESENT: oriented to person, CN II-XII grossly intact, other - Somnolent but arousable. ABSENT: oriented to place, oriented to time, oriented to situation Skin exam: PRESENT: warm Results Laboratory Results: 03/26/18 04:24 03/26/18 04:24 03/26/18 03/26/18 04:24 04:24 WBC 4.1 RBC 3.76 L Hgb 12.7 L Hct 37.0 L MCV 99 H MCH 33.7 H MCHC 34.2 RDW 14.4 H Plt Count 74 L Sodium 136.7 L Potassium 3.5 L Chloride 99 Carbon Dioxide 27 Anion Gap 11 BUN 20 Creatinine 0.85 Est GFR ( Amer) > 60 Est GFR (Non-Af Amer) > 60 Glucose 85 Calcium 9.3 Phosphorus 3.4 Magnesium 1.6 Albumin 3.1 L Impressions: Chest X-Ray 03/20/18 18:34 IMPRESSION: NO ACUTE RADIOGRAPHIC FINDING IN THE CHEST. Clavicle X-Ray 03/20/18 18:34 IMPRESSION: Old clavicular fracture. No acute abnormality. Elbow X-Ray 03/20/18 18:34 IMPRESSION: NEGATIVE STUDY OF THE RIGHT ELBOW. NO RADIOGRAPHIC EVIDENCE OF ACUTE INJURY. Head CT 03/20/18 18:34 IMPRESSION: Involutional changes with no acute intracranial imaging findings. EVIDENCE OF ACUTE STROKE: NO. Assessment & Plan - Diagnosis (1) Alcohol withdrawal delirium Is this a current diagnosis for this admission?: Yes Plan: Mostly just clouding of his sensorium at this point. Time will tell how much this resolves. (2) Alcohol dependence Qualifiers: Substance use status: in withdrawal Complication of substance-induced condition: with delirium Qualified Code(s): F10.231 - Alcohol dependence with withdrawal delirium Is this a current diagnosis for this admission?: Yes Plan: Has completed detox now (3) UTI (urinary tract infection) Qualifiers: Urinary tract infection type: site unspecified Hematuria presence: without hematuria Qualified Code(s): N39.0 - Urinary tract infection, site not specified Is this a current diagnosis for this admission?: Yes Plan: Continue Vantin to complete a 14 day course (4) Thrombocytopenia Is this a current diagnosis for this admission?: Yes Plan: Improved a little today (5) Urinary retention Is this a current diagnosis for this admission?: Yes Plan: Appears to have resolved. Continue Proscar and Flomax. (6) Physical deconditioning Is this a current diagnosis for this admission?: Yes Plan: Very weak. He needs rehab more than any acute medical care.
[2018-03-26] MEDS ORDERED: POTASSIUM CHLORIDE 20 MEQ/15 ML UDCUP PO ONE (11:30)
[2018-03-26] MEDS: TAMSULOSIN HCL 0.4 MG CAP.SR.24H PO SCH (17:03)
[2018-03-27] MEDS ORDERED: GABAPENTIN 300 MG CAPSULE PO ONE (11:00)
[2018-03-27] MEDS: VENLAFAXINE HCL 37.5 MG CAP.SR.24H PO SCH ×2 (11:18→21:27)
[2018-03-27] MEDS: THIAMINE HCL 100 MG TABLET PO SCH (11:18)
[2018-03-27] MEDS: FINASTERIDE 5 MG TABLET PO SCH (11:19)
[2018-03-27] MEDS: CEFPODOXIME 200 MG TABLET PO SCH ×2 (11:19→21:28)
[2018-03-27] MEDS: MAGNESIUM OXIDE 400 MG TABLET PO SCH ×3 (11:19→18:14)
[2018-03-27] MEDS: BUSPIRONE HCL 10 MG TABLET PO SCH ×2 (11:19→21:27)
--- NOTE | 2018-03-27 12:26 | PDOC PROGRESS REPORT ---
Subjective Progress Note for:: 03/27/18 Subjective:: Awake. Wants to know why his medicine for his neuropathy has not been continued. We discussed the fact that it is sedating and he has not been awake consistently. I explained that I need him awake in order to participate in rehab. He was insistent that the Neurontin would help him to walk better. Reason For Visit: HEPATIC ENCEPHALOPATHY Physical Exam Vital Signs: Temp Pulse Resp BP Pulse Ox 97.4 F 83 16 114/58 L 96 03/27/18 07:28 03/27/18 07:28 03/27/18 07:28 03/27/18 07:28 03/27/18 07:28 Intake & Output 03/26/18 03/27/18 03/28/18 05:59 05:59 05:59 Intake Total 1560 2564 320 Output Total 0 Balance 1560 2564 320 Weight 123 lb 10.869 oz 124 lb 1.924 oz General appearance: PRESENT: no acute distress. ABSENT: well-nourished Respiratory exam: PRESENT: clear to auscultation jacky Cardiovascular exam: PRESENT: RRR GI/Abdominal exam: PRESENT: soft Extremities exam: ABSENT: +2 edema Musculoskeletal exam: PRESENT: normal inspection Neurological exam: PRESENT: alert Psychiatric exam: PRESENT: other - Irritable and irrational Skin exam: PRESENT: warm Results Laboratory Results: 03/26/18 04:24 03/26/18 04:24 Impressions: Chest X-Ray 03/20/18 18:34 IMPRESSION: NO ACUTE RADIOGRAPHIC FINDING IN THE CHEST. Clavicle X-Ray 03/20/18 18:34 IMPRESSION: Old clavicular fracture. No acute abnormality. Elbow X-Ray 03/20/18 18:34 IMPRESSION: NEGATIVE STUDY OF THE RIGHT ELBOW. NO RADIOGRAPHIC EVIDENCE OF ACUTE INJURY. Head CT 03/20/18 18:34 IMPRESSION: Involutional changes with no acute intracranial imaging findings. EVIDENCE OF ACUTE STROKE: NO. Assessment & Plan - Diagnosis (1) Alcohol withdrawal delirium Is this a current diagnosis for this admission?: Yes Plan: Mostly just clouding of his sensorium at this point. Time will tell how much this resolves. He seems to have a fair amount of emotional lability which is common and alcoholic dementia. I will try him on some valproate which is sometimes effective. He has very impaired memory and judgment. Neither he nor his appear to have any insight into his deficits. (2) Alcohol dependence Qualifiers: Substance use status: in withdrawal Complication of substance-induced condition: with delirium Qualified Code(s): F10.231 - Alcohol dependence with withdrawal delirium Is this a current diagnosis for this admission?: Yes Plan: Has completed detox now (3) UTI (urinary tract infection) Qualifiers: Urinary tract infection type: site unspecified Hematuria presence: without hematuria Qualified Code(s): N39.0 - Urinary tract infection, site not specified Is this a current diagnosis for this admission?: Yes Plan: Continue Vantin to complete a 14 day course (4) Thrombocytopenia Is this a current diagnosis for this admission?: Yes Plan: Due to his liver disease. (5) Urinary retention Is this a current diagnosis for this admission?: Yes Plan: Appears to have resolved. Continue Proscar and Flomax. (6) Physical deconditioning Is this a current diagnosis for this admission?: Yes Plan: Very weak. He needs rehab more than any acute medical care. (7) Peripheral neuropathic pain Is this a current diagnosis for this admission?: Yes Plan: Probably from nutritional deficiencies associated with alcoholism. I will start him back on some Neurontin and see if he stays awake enough to participate in rehab.
[2018-03-27] MEDS ORDERED: DIVALPROEX SODIUM 250 MG TABLET.DR PO ONE (13:00)
[2018-03-27] MEDS: GABAPENTIN 300 MG CAPSULE PO SCH ×2 (13:59→21:28)
[2018-03-27] MEDS: TAMSULOSIN HCL 0.4 MG CAP.SR.24H PO SCH (18:14)
[2018-03-27] MEDS ORDERED: NORMAL SALINE 1000 ML 1,000 ML IV ONE (20:30)
[2018-03-28] MEDS: GABAPENTIN 300 MG CAPSULE PO SCH ×3 (05:08→22:16)
[2018-03-28] MEDS: VENLAFAXINE HCL 37.5 MG CAP.SR.24H PO SCH ×2 (09:13→22:17)
[2018-03-28] MEDS: THIAMINE HCL 100 MG TABLET PO SCH (09:13)
[2018-03-28] MEDS: CEFPODOXIME 200 MG TABLET PO SCH ×2 (09:13→22:16)
[2018-03-28] MEDS: FINASTERIDE 5 MG TABLET PO SCH (09:13)
[2018-03-28] MEDS: BUSPIRONE HCL 10 MG TABLET PO SCH ×2 (09:13→22:16)
[2018-03-28] MEDS: MAGNESIUM OXIDE 400 MG TABLET PO SCH ×3 (09:14→18:19)
[2018-03-28] MEDS: DIVALPROEX SODIUM 250 MG TABLET.DR PO SCH (11:56)
--- NOTE | 2018-03-28 13:33 | PDOC PROGRESS REPORT ---
Subjective Progress Note for:: 03/28/18 Subjective:: Somnolent but arousable today. No complaints. Staff reportedly found a [place] tick on him and removed it. States his pain is better Reason For Visit: HEPATIC ENCEPHALOPATHY Physical Exam Vital Signs: Temp Pulse Resp BP Pulse Ox 97.8 F 74 16 124/72 97 03/28/18 08:33 03/28/18 08:33 03/28/18 08:33 03/28/18 08:33 03/28/18 08:33 Intake & Output 03/27/18 03/28/18 03/29/18 05:59 05:59 05:59 Intake Total 2564 1985 Output Total 1100 480 Balance 2564 885 -480 Weight 124 lb 1.924 oz 125 lb 7.088 oz General appearance: PRESENT: no acute distress. ABSENT: well-nourished Respiratory exam: PRESENT: clear to auscultation jacky Cardiovascular exam: PRESENT: RRR GI/Abdominal exam: PRESENT: soft Musculoskeletal exam: PRESENT: normal inspection Neurological exam: PRESENT: oriented to person, oriented to place. ABSENT: oriented to time, oriented to situation Skin exam: PRESENT: warm Results Laboratory Results: 03/26/18 04:24 03/26/18 04:24 Impressions: Chest X-Ray 03/20/18 18:34 IMPRESSION: NO ACUTE RADIOGRAPHIC FINDING IN THE CHEST. Clavicle X-Ray 03/20/18 18:34 IMPRESSION: Old clavicular fracture. No acute abnormality. Elbow X-Ray 03/20/18 18:34 IMPRESSION: NEGATIVE STUDY OF THE RIGHT ELBOW. NO RADIOGRAPHIC EVIDENCE OF ACUTE INJURY. Head CT 03/20/18 18:34 IMPRESSION: Involutional changes with no acute intracranial imaging findings. EVIDENCE OF ACUTE STROKE: NO. Assessment & Plan - Diagnosis (1) Alcohol withdrawal delirium Is this a current diagnosis for this admission?: Yes Plan: Mostly just clouding of his sensorium at this point. Time will tell how much this resolves. He seems to have a fair amount of emotional lability which is common and alcoholic dementia. I will try him on some valproate which is sometimes effective. He has very impaired memory and judgment. Neither he nor his appear to have any insight into his deficits. (2) Alcohol dependence Qualifiers: Substance use status: in withdrawal Complication of substance-induced condition: with delirium Qualified Code(s): F10.231 - Alcohol dependence with withdrawal delirium Is this a current diagnosis for this admission?: Yes Plan: Has completed detox now (3) UTI (urinary tract infection) Qualifiers: Urinary tract infection type: site unspecified Hematuria presence: without hematuria Qualified Code(s): N39.0 - Urinary tract infection, site not specified Is this a current diagnosis for this admission?: Yes Plan: Continue Vantin to complete a 14 day course (4) Thrombocytopenia Is this a current diagnosis for this admission?: Yes Plan: Due to his liver disease. (5) Urinary retention Is this a current diagnosis for this admission?: Yes Plan: Appears to have resolved. Continue Proscar and Flomax. (6) Physical deconditioning Is this a current diagnosis for this admission?: Yes Plan: Very weak. He needs rehab more than any acute medical care. (7) Peripheral neuropathic pain Is this a current diagnosis for this admission?: Yes Plan: Probably from nutritional deficiencies associated with alcoholism. I will start him back on some Neurontin and see if he stays awake enough to participate in rehab. (8) Tick bite of axillary region Qualifiers: Encounter type: initial encounter Is this a current diagnosis for this admission?: Yes Plan: Unclear significance. Nevertheless given his constellation of problems, I will send off Ehrlichiosis antibodies, and empirically start him on doxycycline.
[2018-03-28] MEDS: DOXYCYCLINE HYCLATE 100 MG TABLET PO SCH (18:19)
[2018-03-28] MEDS: TAMSULOSIN HCL 0.4 MG CAP.SR.24H PO SCH (18:19)
[2018-03-29] MEDS: DOXYCYCLINE HYCLATE 100 MG TABLET PO SCH ×2 (06:02→17:23)
[2018-03-29] MEDS: GABAPENTIN 300 MG CAPSULE PO SCH ×3 (06:03→21:30)
--- NOTE | 2018-03-29 10:08 | PDOC PROGRESS REPORT ---
Subjective Progress Note for:: 03/29/18 Subjective:: Somnolent but arousable today. No complaints. Reason For Visit: HEPATIC ENCEPHALOPATHY Physical Exam Vital Signs: Temp Pulse Resp BP Pulse Ox 98.2 F 77 18 95/67 L 98 03/29/18 07:50 03/29/18 07:50 03/29/18 07:50 03/29/18 07:50 03/29/18 07:50 Intake & Output 03/28/18 03/29/18 03/30/18 05:59 05:59 05:59 Intake Total 1985 865 0 Output Total 1100 1480 200 Balance 885 -615 -200 Weight 125 lb 7.088 oz General appearance: PRESENT: no acute distress. ABSENT: well-nourished Respiratory exam: PRESENT: clear to auscultation jacky Cardiovascular exam: PRESENT: RRR GI/Abdominal exam: PRESENT: soft Neurological exam: PRESENT: awake, oriented to person, oriented to place, ataxia. ABSENT: oriented to time, oriented to situation Psychiatric exam: PRESENT: flat affect Skin exam: PRESENT: warm Results Laboratory Results: 03/26/18 04:24 03/26/18 04:24 Impressions: Chest X-Ray 03/20/18 18:34 IMPRESSION: NO ACUTE RADIOGRAPHIC FINDING IN THE CHEST. Clavicle X-Ray 03/20/18 18:34 IMPRESSION: Old clavicular fracture. No acute abnormality. Elbow X-Ray 03/20/18 18:34 IMPRESSION: NEGATIVE STUDY OF THE RIGHT ELBOW. NO RADIOGRAPHIC EVIDENCE OF ACUTE INJURY. Head CT 03/20/18 18:34 IMPRESSION: Involutional changes with no acute intracranial imaging findings. EVIDENCE OF ACUTE STROKE: NO. Assessment & Plan - Diagnosis (1) Alcoholic dementia Qualifiers: Dementia behavioral disturbance: without behavioral disturbance Qualified Code(s): F10.27 - Alcohol dependence with alcohol-induced persisting dementia Is this a current diagnosis for this admission?: Yes Plan: Not significantly changed in the past week (2) UTI (urinary tract infection) Qualifiers: Urinary tract infection type: site unspecified Hematuria presence: without hematuria Qualified Code(s): N39.0 - Urinary tract infection, site not specified Is this a current diagnosis for this admission?: Yes Plan: Continue Vantin to complete a 14 day course (3) Thrombocytopenia Is this a current diagnosis for this admission?: Yes Plan: Due to his liver disease. (4) Physical deconditioning Is this a current diagnosis for this admission?: Yes Plan: Very weak. He needs rehab more than any acute medical care. (5) Peripheral neuropathic pain Is this a current diagnosis for this admission?: Yes Plan: Probably from nutritional deficiencies associated with alcoholism. I will start him back on some Neurontin and see if he stays awake enough to participate in rehab. (6) Tick bite of axillary region Qualifiers: Encounter type: initial encounter Is this a current diagnosis for this admission?: Yes Plan: Unclear significance. Ehrlichiosis antibodies are pending. Continue empiric doxycycline.
[2018-03-29] MEDS: MAGNESIUM OXIDE 400 MG TABLET PO SCH ×3 (11:29→17:23)
[2018-03-29] MEDS: VENLAFAXINE HCL 37.5 MG CAP.SR.24H PO SCH ×2 (11:30→21:31)
[2018-03-29] MEDS: CEFPODOXIME 200 MG TABLET PO SCH (11:30)
[2018-03-29] MEDS: BUSPIRONE HCL 10 MG TABLET PO SCH ×2 (11:30→21:30)
[2018-03-29] MEDS: THIAMINE HCL 100 MG TABLET PO SCH (11:30)
[2018-03-29] MEDS: FINASTERIDE 5 MG TABLET PO SCH (11:31)
[2018-03-29] MEDS: DIVALPROEX SODIUM 250 MG TABLET.DR PO SCH (15:38)
[2018-03-29 15:39] LABS: E. CHAFFEENSIS IGG TITER Negative (Neg:<1:64)
[2018-03-29] MEDS: TAMSULOSIN HCL 0.4 MG CAP.SR.24H PO SCH (17:23)
[2018-03-30] MEDS: GABAPENTIN 300 MG CAPSULE PO SCH ×3 (05:03→21:16)
[2018-03-30] MEDS: DOXYCYCLINE HYCLATE 100 MG TABLET PO SCH ×2 (05:03→18:30)
[2018-03-30 07:35] LABS: E. CHAFFEENSIS IGM TITER Negative (Neg:<1:20)
[2018-03-30] MEDS ORDERED: LORAZEPAM INJ 2 MG/1 ML VIAL IV PRN (09:31)
[2018-03-30] MEDS ORDERED: ONDANSETRON HCL INJ/PF 4 MG/2 ML SDV IV PRN (10:00)
[2018-03-30] MEDS: VENLAFAXINE HCL 75 MG CAP.SR.24H PO SCH ×2 (11:10→21:16)
[2018-03-30] MEDS: FINASTERIDE 5 MG TABLET PO SCH (11:11)
[2018-03-30] MEDS: LORAZEPAM 0.5 MG TABLET PO SCH (11:11)
[2018-03-30] MEDS: THIAMINE HCL 100 MG TABLET PO SCH (11:11)
[2018-03-30] MEDS: BUSPIRONE HCL 10 MG TABLET PO SCH ×2 (11:17→21:17)
[2018-03-30] MEDS: MAGNESIUM OXIDE 400 MG TABLET PO SCH ×3 (11:17→18:29)
[2018-03-30] MEDS: DIVALPROEX SODIUM 250 MG TABLET.DR PO SCH (11:18)
--- NOTE | 2018-03-30 18:29 | PDOC PROGRESS REPORT ---
Subjective Progress Note for:: 03/30/18 Subjective:: Rapid response was called for a brief episode of seizure, nurse witnessed, the time of my arrival patient is back to normal does not recollect the event denies chest pain or shortness of breath or focal weakness Reason For Visit: HEPATIC ENCEPHALOPATHY Physical Exam Vital Signs: Temp Pulse Resp BP Pulse Ox 98.2 F 78 18 148/98 H 98 03/30/18 16:24 03/30/18 16:24 03/30/18 16:24 03/30/18 16:24 03/30/18 16:24 Intake & Output 03/29/18 03/30/18 03/31/18 06:59 06:59 06:59 Intake Total 865 1924 644 Output Total 1200 400 300 Balance -335 1524 344 Weight 56.2 kg General appearance: PRESENT: no acute distress, well-developed, well-nourished Results Laboratory Results: 03/26/18 04:24 03/26/18 04:24 Impressions: Chest X-Ray 03/20/18 18:34 IMPRESSION: NO ACUTE RADIOGRAPHIC FINDING IN THE CHEST. Clavicle X-Ray 03/20/18 18:34 IMPRESSION: Old clavicular fracture. No acute abnormality. Elbow X-Ray 03/20/18 18:34 IMPRESSION: NEGATIVE STUDY OF THE RIGHT ELBOW. NO RADIOGRAPHIC EVIDENCE OF ACUTE INJURY. Head CT 03/20/18 18:34 IMPRESSION: Involutional changes with no acute intracranial imaging findings. EVIDENCE OF ACUTE STROKE: NO. Assessment & Plan - Diagnosis (1) Breakthrough seizure Is this a current diagnosis for this admission?: Yes (2) Peripheral neuropathic pain Is this a current diagnosis for this admission?: Yes (3) Thrombocytopenia Is this a current diagnosis for this admission?: Yes - Plan Summary Plan Summary: Assessment & Plan - Diagnosis (1) Alcoholic dementia Qualifiers: Dementia behavioral disturbance: without behavioral disturbance Qualified Code(s): F10.27 - Alcohol dependence with alcohol-induced persisting dementia Is this a current diagnosis for this admission?: Yes Plan: Patient still has intermittent confusion, todays he is more awake alert (2) UTI (urinary tract infection) Qualifiers: Urinary tract infection type: site unspecified Hematuria presence: without hematuria Qualified Code(s): N39.0 - Urinary tract infection, site not specified Is this a current diagnosis for this admission?: Yes Plan: continue antibiotics (3) Thrombocytopenia Is this a current diagnosis for this admission?: Yes Plan: Due to his liver disease. Platelets stable at (4) Physical deconditioning Is this a current diagnosis for this admission?: Yes Plan: Very weak. He needs rehab more than any acute medical care. Continue PT OT during hospital stay (5) Peripheral neuropathic pain Is this a current diagnosis for this admission?: Yes Plan: Probably from nutritional deficiencies associated with alcoholism. I will start him back on some Neurontin and see if he stays awake enough to participate in rehab. (6) Tick bite of axillary region Qualifiers: Encounter type: initial encounter Is this a current diagnosis for this admission?: Yes Plan: Unclear significance. Ehrlichiosis antibodies are pending. Continue empiric doxycycline. 7 seizure breakthrough patient is started on Ativan low dose and will use as needed for seizure breakthrough observe patient for next 24 hours, no need for antiseizure medication as this is due to alcohol-related seizure if recurrence consider Keppra Disposition to rehab if no further episode patient will be discharged to rehab facility
[2018-03-30] MEDS: TAMSULOSIN HCL 0.4 MG CAP.SR.24H PO SCH (18:30)
[2018-03-31] MEDS: GABAPENTIN 300 MG CAPSULE PO SCH (05:49)
[2018-03-31] MEDS: DOXYCYCLINE HYCLATE 100 MG TABLET PO SCH (05:50)
[2018-03-31] MEDS: THIAMINE HCL 100 MG TABLET PO SCH (10:48)
[2018-03-31] MEDS: DIVALPROEX SODIUM 250 MG TABLET.DR PO SCH (10:48)
[2018-03-31] MEDS: FINASTERIDE 5 MG TABLET PO SCH (10:48)
[2018-03-31] MEDS: LORAZEPAM 0.5 MG TABLET PO SCH (10:49)
[2018-03-31] MEDS: VENLAFAXINE HCL 75 MG CAP.SR.24H PO SCH (10:49)
[2018-03-31] MEDS: BUSPIRONE HCL 10 MG TABLET PO SCH (10:49)
[2018-03-31] MEDS: MAGNESIUM OXIDE 400 MG TABLET PO SCH (10:49)
--- NOTE | 2018-03-31 12:03 | PDOC DISCHARGE SUMMARY ---
General - Admit/Disc Date/PCP Admission Date/Primary Care Provider: 03/20/18 21:06 Discharge Date: 03/31/18 - Discharge Diagnosis (1) Alcohol dependence Is this a current diagnosis for this admission?: Yes (2) Alcohol withdrawal delirium Is this a current diagnosis for this admission?: Yes (3) Breakthrough seizure Is this a current diagnosis for this admission?: Yes (4) COPD (chronic obstructive pulmonary disease) Is this a current diagnosis for this admission?: Yes (5) Hepatic encephalopathy Is this a current diagnosis for this admission?: Yes (6) Hypertension Is this a current diagnosis for this admission?: Yes (7) Peripheral neuropathic pain Is this a current diagnosis for this admission?: Yes (8) Physical deconditioning Is this a current diagnosis for this admission?: Yes (9) Thrombocytopenia Is this a current diagnosis for this admission?: Yes (10) Tick bite of axillary region Is this a current diagnosis for this admission?: Yes (11) UTI (urinary tract infection) Is this a current diagnosis for this admission?: Yes (12) Urinary retention Is this a current diagnosis for this admission?: Yes (13) Electrolyte abnormality Is this a current diagnosis for this admission?: Yes Summary: Hypomagnesemia, hypokalemia and hyponatremia managed during this admission (14) Cirrhosis of liver Is this a current diagnosis for this admission?: Yes Summary: Patient apparently carries a diagnosis of cirrhosis although I see no confirmatory imaging studies on file (15) Protein calorie malnutrition Is this a current diagnosis for this admission?: Yes Summary: Due to alcohol abuse with BMI of 18.5 - Additional Information Resuscitation Status: Full Code Discharge Diet: Cardiac Discharge Activity: Activity As Tolerated - Per PT Prescriptions: Divalproex Sodium [Depakote ER 500 mg Tab.sr] 500 mg PO DAILY #30 tab.sr.24h Gabapentin [Neurontin 300 mg Capsule] 300 mg PO Q8 30 Days #90 capsule Lorazepam [Ativan 0.5 mg Tablet] 0.25 mg PO DAILY 20 Days #20 tablet Home Medications: Cholecalciferol (Vitamin D3) [Vitamin D3 1000 Unit Tablet] 1,000 unit PO DAILY 03/23/18 Finasteride [Proscar 5 mg Tablet] 5 mg PO DAILY 03/23/18 Buspirone HCl [Buspar 10 mg Tablet] 10 mg PO Q12 tablet 03/26/18 Cefpodoxime Proxetil [Vantin 200 mg Tablet] 200 mg PO Q12 #18 tablet 03/26/18 Tamsulosin HCl [Flomax 0.4 mg Cap.sr] 0.4 mg PO PCSUPPER cap.sr.24h 03/26/18 Thiamine HCl [Thiamine 100 mg Tablet] 100 mg PO DAILY tablet 03/26/18 Venlafaxine HCl ER [Effexor Xr 37.5 mg Cap.sr] 75 mg PO Q12 cap.sr.24h Divalproex Sodium [Depakote ER 500 mg Tab.sr] 500 mg PO DAILY #30 tab.sr.24h Doxycycline Hyclate [Vibramycin 100 mg Tablet] 100 mg PO Q12A 5 Days #10 tablet 03/31/18 Gabapentin [Neurontin 300 mg Capsule] 300 mg PO Q8 30 Days #90 capsule 03/31/18 Lorazepam [Ativan 0.5 mg Tablet] 0.25 mg PO DAILY 20 Days #20 tablet 03/31/18 Magnesium Oxide [Mag-Ox 400 mg Tablet] 800 mg PO TID tablet 03/31/18 History of Present Illness History of Present Illness: JEANNINE LAZO JR is a 72 year old male patient with past medical history of HTN, COPD, cirrhosis of the liver and alcohol dependence brought by his for confusion and visual hallucination. During my encounter patient is agitated and trying to get out of bed so is not source of history brief history is obtained from his and ER attending note. Per ER attending note patient states that his last drink was 4 days ago he admits to heavy drinking over the last 13 years. He states that he was drinking 6-12 cans of beer per day despite having cirrhosis of the liver. Per his patient has been hallucinating seeing men in his room, tractor since then traveling into complaining of hearing the air conditioning blowing in his ear she also reports this patient has had multiple falls over the last few days. Further history and review of system is unobtainable. Hospital Course Hospital Course: Patient was admitted with f confusion as well as visual hallucination which was thought to be secondary to alcohol abuse and withdrawal. He has a known history of cirrhosis of the liver. He was initially encephalopathic was treated with lactulose as well as thiamine and folic acid. He was also noted to have possible transient episode of seizures although this was not confirmed. At this time it is felt that there is no need for antiepileptic medication unless he has sustained seizures. He was also treated for urinary tract infection with associated urinary retention. He continues on the alpha blockers for now and follow-up with urology may be considered as outpatient. He is does have a thrombocytopenia secondary to his alcoholic liver disease his platelet count is improving. He was treated with doxycycline due to a tick bite the axillary region. Ehrlichiosis titer is negative Patient was seen by behavioral team during this hospital stay and the recommendations noted. He has otherwise been hemodynamically stable although he is physically weak and it is felt that due to his deconditioning he needs rehabilitation and states been discharged to rehab. Physical Exam Vital Signs: Temp Pulse Resp BP Pulse Ox 98.1 F 81 18 101/61 99 03/31/18 07:23 03/31/18 07:23 03/31/18 07:23 03/31/18 07:23 03/31/18 07:23 Intake & Output 03/30/18 03/31/18 04/01/18 06:59 06:59 06:59 Intake Total 1924 1499 Output Total 400 300 Balance 1524 1199 Weight 56.2 kg 56.9 kg General appearance: PRESENT: no acute distress, thin Head exam: PRESENT: atraumatic, normocephalic Eye exam: PRESENT: conjunctiva pink, PERRLA. ABSENT: scleral icterus Mouth exam: PRESENT: moist, tongue midline Neck exam: ABSENT: carotid bruit, JVD, lymphadenopathy, thyromegaly Respiratory exam: PRESENT: clear to auscultation jacky. ABSENT: rales, rhonchi, wheezes Cardiovascular exam: PRESENT: RRR. ABSENT: diastolic murmur, rubs, systolic murmur Pulses: PRESENT: normal dorsalis pedis pul Vascular exam: PRESENT: normal capillary refill GI/Abdominal exam: PRESENT: normal bowel sounds, soft. ABSENT: distended, guarding, mass, organolmegaly, rebound, tenderness Rectal exam: PRESENT: deferred Extremities exam: PRESENT: full ROM. ABSENT: calf tenderness, clubbing, pedal edema Neurological exam: PRESENT: alert, awake, oriented to person, oriented to place , oriented to time, oriented to situation, CN II-XII grossly intact. ABSENT: motor sensory deficit Psychiatric exam: PRESENT: appropriate affect, normal mood. ABSENT: homicidal ideation, suicidal ideation Skin exam: PRESENT: dry, intact, warm. ABSENT: cyanosis, rash Results Laboratory Results: 03/26/18 04:24 03/26/18 04:24 Impressions: Chest X-Ray 03/20/18 18:34 IMPRESSION: NO ACUTE RADIOGRAPHIC FINDING IN THE CHEST. Clavicle X-Ray 03/20/18 18:34 IMPRESSION: Old clavicular fracture. No acute abnormality. Elbow X-Ray 03/20/18 18:34 IMPRESSION: NEGATIVE STUDY OF THE RIGHT ELBOW. NO RADIOGRAPHIC EVIDENCE OF ACUTE INJURY. Head CT 03/20/18 18:34 IMPRESSION: Involutional changes with no acute intracranial imaging findings. EVIDENCE OF ACUTE STROKE: NO. Qualifiers - * PATIENT BEING DISCHARGED WITH ANY OF THE FOLLOWING DIAGNOSIS: No Plan Time Spent: Greater than 30 Minutes
[2018-03-31 12:21] VITALS: BP 123/67
== END 2018-03-31 14:14 | disposition short-term general hospital (02) | DRG 897 ==
LOC: ER 15:04 → EH 21:06 → 3N 22:56
PROVIDERS: ADMIT Internal Medicine; ATTEND Internal Medicine
DX: F10.231 Alcohol dependence with withdrawal delirium (principal); N39.0 Urinary tract infection, site not specified; G40.89 Other seizures; E46 Unspecified protein-calorie malnutrition; Z68.1 Body mass index [BMI] 19.9 or less, adult; F10.251 Alcohol dependence with alcohol-induced psychotic disorder with hallucinations; K70.30 Alcoholic cirrhosis of liver without ascites; K70.40 Alcoholic hepatic failure without coma; G31.2 Degeneration of nervous system due to alcohol; J44.9 Chronic obstructive pulmonary disease, unspecified; I10 Essential (primary) hypertension; K21.9 Gastro-esophageal reflux disease without esophagitis; D69.6 Thrombocytopenia, unspecified; G62.9 Polyneuropathy, unspecified; R33.9 Retention of urine, unspecified; S40.869A Insect bite (nonvenomous) of unspecified upper arm, initial encounter; Y90.0 Blood alcohol level of less than 20 mg/100 ml; Z87.891 Personal history of nicotine dependence
CPT/HCPCS: 36415; 51701; 70450; 71046; 80048; 80053; 80069; 80307; 81001; 82140; 82550; 82553; 82607; 82746; 82784; 83540; 83690; 83735; 84450; 84460; 84484; 85025; 85027; 85045; 93005; 93010; 96374; 96375; 99285; G8978-GP; G8979-GP; J0696; J1630; J2060; J3360; J3411; J3475; J3480; J3490; J7030; J7050

== ENCOUNTER 2018-07-09 14:05 | Emergency (ER) | payer MEDICARE, OTHER ==
[2018-07-09 15:54] LABS: ABSOLUTE EOSINOPHILS # (AUTO) 0.1 10^3/uL (0.0-0.6); ABSOLUTE MONOCYTES (AUTO) 0.5 10^3/uL (0.1-1.4); ABSOLUTE NEUT (AUTO) 3.6 10^3/uL (1.7-8.2); BASOPHILS % (AUTO) 0.9 % (0-2); EOSINOPHILS % (AUTO) 2.2 % (0-6); HEMATOCRIT 37.7 % (37.9-51.0); HEMOGLOBIN 12.9 g/dL (13.5-17.0); INTERNATIONAL RATION (INR) 1.01; LYMPHOCYTES % (AUTO) 19.1 % (13-45); MEAN CORPUSCULAR HEMOGLOBIN 31.5 pg (27.0-33.4); MEAN CORPUSCULAR HGB CONC 34.3 g/dL (32.0-36.0); MEAN CORPUSCULAR VOLUME 92 fl (80-97); MONOCYTES % (AUTO) 9.1 % (3-13); PLATELET COUNT 106 10^3/uL (150-450); PROTHROMBIN TIME 13.8 SEC (11.4-15.4); RED CELL DISTRIBUTION WIDTH 13.4 % (11.5-14.0); SEGMENTED NEUTROPHILS % (AUTO) 68.7 % (42-78); TOTAL CELLS COUNTED % (AUTO) 100 %; WHITE BLOOD COUNT 5.3 10^3/uL (4.0-10.5)
[2018-07-09 15:55] LABS: PARTIAL THROMBOPLASTIN TIME 32.2 SEC (23.5-35.8)
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
[2018-07-09 16:14] LABS: ALANINE AMINOTRANSFERASE 25 U/L (21-72); ALBUMIN 3.7 g/dL (3.5-5.0); ALKALINE PHOSPHATASE 119 U/L (38-126); ANION GAP 11 (5-19); ASPARTATE AMINO TRANSFERASE 33 U/L (17-59); BILIRUBIN,DIRECT 0.3 mg/dL (0.0-0.4); BILIRUBIN,TOTAL 0.7 mg/dL (0.2-1.3); BLOOD UREA NITROGEN 14 mg/dL (7-20); CALCIUM 9.4 mg/dL (8.4-10.2); CARBON DIOXIDE 25 mmol/L (22-30); CHLORIDE 104 mmol/L (98-107); GLUCOSE 82 mg/dL (75-110); POTASSIUM 3.7 mmol/L (3.6-5.0); SODIUM 139.6 mmol/L (137-145); TOTAL PROTEIN 7.5 g/dL (6.3-8.2)
[2018-07-09 16:37] LABS: ALCOHOL < 10 mg/dL (NONE DETECTED)
[2018-07-09] MEDS ORDERED: OXYMETAZOLINE HCL 0.05% NASAL SPRAY 15 ML BOTTLE NASL ONE (16:59)
[2018-07-09] MEDS ORDERED: ACETAMINOPHEN 325 MG TABLET PO ONE (17:27)
--- NOTE | 2018-07-09 17:27 | RADIOLOGY REPORT (SQ) ---
EXAM DESCRIPTION: CT HEAD WITH COMPLETED DATE/TIME: 07/09/2018 5:08 pm REASON FOR STUDY: spontaneous bleed of right ear COMPARISON: March 2018 TECHNIQUE: Axial images acquired through the brain with intravenous contrast. Images reviewed with b one, brain and subdural windows. Additional sagittal and coronal reconstructions were generated. Imag es stored on PACS. All CT scanners at this facility use dose modulation, iterative reconstruction, and/or weight based d osing when appropriate to reduce radiation dose to as low as reasonably achievable (ALARA). [facility]: Dose Right [facility]: CareDose [facility]: Dose Right [facility]: Teradose 4D [facility]: Thinque Systems CONTRAST TYPE AND DOSE: contrast/concentration: Isovue 350.00 mg/ml; Total Contrast Delivered: 50.0 ml; Total Saline Delivered: 50.0 ml RENAL FUNCTION: Creatinine 0.9 RADIATION DOSE: CT Rad equipment meets quality standard of care and radiation dose reduction techniq ues were employed. CTDIvol: 53.2 mGy. DLP: 937 mGy-cm.. LIMITATIONS: None. FINDINGS: VENTRICLES: Normal size and contour. CEREBRUM: No masses. No hemorrhage. No midline shift. A few areas of low density in the white matter most likely due to chronic micro-vascular ischemic change. No evidence for acute infarction. No abnor mal enhancement. CEREBELLUM: No masses. No hemorrhage. No alteration of density. No evidence for acute infarction. EXTRAAXIAL SPACES: Mild age-related involutional change. No fluid collections. No masses. ORBITS AND GLOBE: No intra- or extraconal masses. Normal contour of globe without masses. CALVARIUM: No fracture. PARANASAL SINUSES: No fluid or mucosal thickening. SOFT TISSUES: No mass or hematoma. OTHER: No other significant finding. IMPRESSION: MILD CHRONIC CHANGES OF ATROPHY AND MICROVASCULAR ISCHEMIA. NO ACUTE PROCESS. NO ABNORM AL ENHANCEMENT. EVIDENCE OF ACUTE STROKE: NO. TECHNICAL DOCUMENTATION: JOB ID: [id number] [facility] [id number]: Final reports with documentation of one or more dose reduction techniques (e.g., Automate d exposure control, adjustment of the mA and/or kV according to patient size, use of iterative recons truction technique) 2010 [employer]- All Rights Reserved Reading location - IP/workstation name: [email or web address]
[2018-07-09] MEDS ORDERED: CIPROFLOXACIN HCL/DEXAMETH OTIC DROP 7.5 ML AU ONE (18:30)
[2018-07-09] MEDS ORDERED: AMOXICILLIN TR/POT CLAVULANATE 500-125 MG TAB PO ONE (18:31)
[2018-07-09 20:11] VITALS: BP 128/71
== END 2018-07-09 20:20 | disposition home or self-care (01) ==
LOC: ER 14:05
DX: Z04.3 Encounter for examination and observation following other accident (principal); H65.90 Unspecified nonsuppurative otitis media, unspecified ear; H72.90 Unspecified perforation of tympanic membrane, unspecified ear; H73.893 Other specified disorders of tympanic membrane, bilateral; D69.6 Thrombocytopenia, unspecified; H91.93 Unspecified hearing loss, bilateral; J44.9 Chronic obstructive pulmonary disease, unspecified; H92.03 Otalgia, bilateral; R51 Headache; I10 Essential (primary) hypertension; F17.210 Nicotine dependence, cigarettes, uncomplicated; Z71.6 Tobacco abuse counseling
CPT/HCPCS: 99406; 99284; 36415; 80307; 85025; 85610; 85730; 80053; 70460; A9270 ×2; J3490 ×2

== ENCOUNTER → 2018-08-22 | Outpatient (CLI) | payer MEDICARE, OTHER ==
--- NOTE | 2018-08-22 13:51 | RADIOLOGY REPORT (SQ) ---
EXAM DESCRIPTION: CAROTID DOPPLER COMPLETED DATE/TIME: 08/22/2018 11:44 am REASON FOR STUDY: CIRCULATORY SYMPTOMS R09.89 OTH SYMPTOMS AND SIGNS INVOLVING THE CIRC AND RESP SY COMPARISON: None. TECHNIQUE: Grayscale ultrasound, Doppler velocity and spectra, and color Doppler images acquired of the extra-cranial carotid and vertebral arteries. Images stored on PACS. LIMITATIONS: None. FINDINGS: RIGHT CAROTID CCA Velocities: 115 centimeters/second ICA Velocities Peak systolic 126 cm/s. End diastolic 33 cm/s. Proximal ICA/CCA peak systolic ratio 1.1. Shadowing plaque is present in the carotid bulb and proximal internal carotid. LEFT CAROTID CCA Velocities: 114 centimeters/second ICA Velocities Peak systolic 116 cm/s. End diastolic 38 cm/s. Proximal ICA/CCA peak systolic ratio 1. Plaque is present in the common carotid, carotid bulb, and proximal internal carotid artery. VERTEBRAL ARTERIES: Antegrade flow. Normal waveforms. SUBCLAVIAN ARTERIES: No finding. OTHER: No other significant finding. IMPRESSION: Atherosclerotic changes with no hemodynamically significant stenosis. COMMENT: Quality ID #[id number]: Velocity criteria are extrapolated from the diameter data as defined by t he Society of Radiologists in Ultrasound Consensus Conference. Radiology 2003: 229; 340-346. TECHNICAL DOCUMENTATION: JOB ID: [id number] [employer]- All Rights Reserved Reading location - IP/workstation name: [email or web address]
== END ==
LOC: SP 10:05
PROVIDERS: ATTEND Family Medicine
DX: I65.23 Occlusion and stenosis of bilateral carotid arteries (principal); R09.89 Other specified symptoms and signs involving the circulatory and respiratory systems
CPT/HCPCS: 93880

== ENCOUNTER → 2019-11-30 | Outpatient (CLI) | payer MEDICARE, OTHER ==
--- NOTE | 2019-11-30 13:56 | RADIOLOGY REPORT (SQ) ---
EXAM DESCRIPTION: L SPINE WHOLE COMPLETED DATE/TIME: 11/30/2019 11:49 am REASON FOR STUDY: M54.5 LOW BACK PAIN M54.5 LOW BACK PAIN COMPARISON: None. NUMBER OF VIEWS: Five views including obliques. TECHNIQUE: AP, lateral, oblique, and sacral radiographic images acquired of the lumbar spine. LIMITATIONS: None. FINDINGS: MINERALIZATION: Osteopenia. SEGMENTATION: There are 5 lumbar-type vertebral bodies. There is no transitional anatomy at the lumb osacral junction. ALIGNMENT: No scoliotic curvature or spondylolisthesis. VERTEBRAE: Kyphoplasty cement within the T8, L1, L4 and L5 vertebral bodies. There is an age-indeter minate wedge compression deformity of the T10 vertebral body without retropulsion and with approximat mariama 25 to 50% loss of the vertebral body height. The T11, T12, L2 on L3 vertebral body heights are p reserved. DISCS: The L4-L5 and L5-S1 intervertebral disc spaces are narrowed ; at L5-S1 there is evidence of va cuum disc phenomenon. POSTERIOR ELEMENTS: Intact. There is no pars interarticularis defect. HARDWARE: None in the spine. PARASPINAL SOFT TISSUES: Normal. PELVIS: Intact. OTHER: Vascular calcifications. IMPRESSION: 1. Kyphoplasty cement within the T8, L1, L4 and L5 vertebral bodies. 2. Age-indeterminate wedge compression deformity of the T10 vertebral body with approximately 25 to 50% loss of the vertebral body height. 3. Degenerative spondylosis of the lumbar spine at L4-L5 and L5-S1. TECHNICAL DOCUMENTATION: JOB ID: [id number] [employer]- All Rights Reserved Reading location - IP/workstation name: [email or web address]
--- NOTE | 2019-12-01 11:51 | RADIOLOGY REPORT (SQ) ---
EXAM DESCRIPTION: MRI LUMBAR SPINE WITHOUT COMPLETED DATE/TIME: 11/30/2019 12:06 pm REASON FOR STUDY: M54.5 LOW BACK PAIN M54.5 LOW BACK PAIN COMPARISON: Lumbar spine films 11/30/2019 TECHNIQUE: Sagittal and Axial imaging includes T1, T2, STIR and gradient echo sequences. Coronal T2/ HASTE imaging. LIMITATIONS: None. FINDINGS: VISUALIZED UPPER ABDOMEN: Limited evaluation. No acute or suspicious findings suggested. SEGMENTATION: No transitional anatomy. The lowest well-developed disc space is labeled L5-S1. ALIGNMENT: Anatomic. VERTEBRAE AND BONE MARROW: 25 to 50% upper endplate compression at L1 with bone cement from old kyphoplasty. Bone cement without overall vertebral body loss of height at L4 from prior kyphoplasty. 25 to 50% upper endplate compression at L5 with bone cement from old kyphoplasty. DISC SIGNAL: Diffuse decreased T2 weighted intervertebral disc signal. Disc space loss of height at L5-S1. POSTERIOR ELEMENTS: Generally intact. No pars defect evident. HARDWARE: None in the spine. CORD AND CONUS: Normal in size and signal intensity. Conus at the L1-2 level. SOFT TISSUES: No aortic aneurysm seen. No bulky retroperitoneal adenopathy or mass. No paraspinal mas s or fluid. At T11-12, mild bilateral facet hypertrophy is present without central or foraminal stenosis. At T12-L1, mild posterior retropulsion of the posterosuperior corner of the L1 vertebral body is pres ent. This finding along with mild bilateral facet and ligament hypertrophy causes borderline central canal narrowing. No significant foraminal narrowing. L1-L2: Mild bilateral facet hypertrophy without central or foraminal stenosis. L2-L3: Borderline central canal narrowing from posterior disc bulging and mild bilateral facet and li gament hypertrophy. Mild bilateral inferior foraminal narrowing without exiting L2 nerve root imping ement. L3-L4: Mild central canal stenosis results from broad diffuse posterior disc bulging and moderate jacky ateral facet and ligament hypertrophy. This is best shown on axial T2 image 23. There is mild bilat eral inferior foraminal narrowing without exiting L3 nerve root impingement. L4-L5: Mild central canal stenosis results from broad diffuse posterior disc bulge and moderate bilat eral facet and ligament hypertrophy. This is best shown on axial T2 image 29. There is mild to mode rate bilateral foraminal narrowing without exit L4 nerve root impingement. L5-S1: Mild diffuse posterior disc bulging, moderate bilateral facet hypertrophy. No central stenosi s. Moderate bilateral foraminal narrowing without exit L5 nerve root impingement. SACRUM: Visualized upper sacrum intact. No marrow signal abnormality worrisome for sacral insufficie ncy fracture OTHER: No other significant findings. IMPRESSION: Multilevel central and foraminal narrowing as above. No acute or subacute lumbar compression deformity or sacral osteoporotic fracture TECHNICAL DOCUMENTATION: JOB ID: [id number]- All Rights Reserved Reading location - IP/workstation name: [email or web address]
== END ==
LOC: RAD 10:47
PROVIDERS: ATTEND Family Medicine
DX: M54.5 Low back pain (principal)
CPT/HCPCS: 72110; 72148

== ENCOUNTER → 2020-01-02 | Outpatient (CLI) | payer MEDICARE, OTHER ==
--- NOTE | 2020-01-02 12:13 | RADIOLOGY REPORT (SQ) ---
EXAM DESCRIPTION: MRI THORACIC SPINE WITHOUT COMPLETED DATE/TIME: 01/02/2020 10:39 am REASON FOR STUDY: M54.6 PAIN IN THORACIC SPINE M54.6 PAIN IN THORACIC SPINE COMPARISON: None. TECHNIQUE: Sagittal and Axial imaging includes T1, T2, STIR and gradient echo sequences. LIMITATIONS: None. FINDINGS: LOCALIZER: No worrisome findings. ALIGNMENT: Normal. VERTEBRAE: Chronic treated compression fractures at T8 and L1. Mild compression deformities at T5 an d T10 but no edema to suggest recency. These look chronic. BONE MARROW: As above. Marrow edema related to Schmorl's node formation in the upper T9 endplate. HARDWARE: None in the spine. CORD: Normal in size and signal intensity. SOFT TISSUES: No soft tissue masses. THORACIC DISCS T1-T12: No large disc bulges or hernias. Minimal areas of disc bulging. Slight chron ic retropulsion along the upper L1 endplate. No cord compression or significant central stenosis det ected, however. Generally patent neural foramina. LOWER CERVICAL: Incomplete assessment. No gross cord compression. UPPER LUMBAR: Incomplete assessment. See recent MRI and radiographs. Old fractures are noted. OTHER: No other significant finding. IMPRESSION: 1. Thoracic spondylosis and evidence of chronic fractures but no acute fracture. Spondylosis as disc ussed. TECHNICAL DOCUMENTATION: JOB ID: [id number] [employer]- All Rights Reserved Reading location - IP/workstation name: [email or web address]
== END ==
LOC: RAD 09:17
PROVIDERS: ATTEND Physician Assistant
DX: M54.6 Pain in thoracic spine (principal)
CPT/HCPCS: 72146

== ENCOUNTER 2020-03-06 20:08 | Inpatient (IN) | payer MEDICARE, OTHER ==
--- NOTE | 2020-03-06 21:06 | RADIOLOGY REPORT (SQ) ---
CLINICAL INDICATION: fall. Pain and deformity. TECHNIQUE: 2 view(s) were obtained of the left hip. COMPARISON: None. FINDINGS: Acute impacted comminuted angulated intertrochanteric fracture of the left femur. Avulsion of the lesser trochanter. Osteoarthritis. Vascular calcification. Old vertebroplasty changes of the lumbar spine. IMPRESSION: Intertrochanteric fracture of the left femur.
--- NOTE | 2020-03-06 21:54 | ER Document Report ---
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 Patient was advised he had liver cirrhosis many years ago. Patient reports he broke his arm when he was a young boy but it had repair during the [employer] many years ago. I discussed this case with Dr. Jose Santos and he advises admitting the patient with hospitalist and he will perform hip surger y on him tomorrow along with 2 other cases.. TRAVEL OUTSIDE OF THE [place] IN LAST 30 DAYS: No - HPI Onset: Just prior to arrival - Related Data Allergies/Adverse Reactions: No Known Allergies Allergy (Verified 07/09/18 14:40) Past Medical History - General Information source: Patient, Emergency Med Personnel - Social History Smoking Status: Current Some Day Smoker Cigarette use (# per day): Yes - 5 cigarettes/day Chew tobacco use (# tins/day): No Smoking Education Provided: Yes Frequency of alcohol use: daily 1 6 pack daily Drug Abuse: None Lives with: Family - Family History: Reviewed & Not Pertinent Patient has suicidal ideation: No Patient has homicidal ideation: No - Past Medical History Cardiac Medical History: Reports: Hx Hypertension Pulmonary Medical History: Reports: Hx COPD EENT Medical History: Reports: Other - Fracture left arm as a child repaired by [employer] in the 60s Renal/ Medical History: Denies: Hx Peritoneal Dialysis GI Medical History: Reports: Hx Cirrhosis, Hx Gastroesophageal Reflux Disease Psychiatric Medical History: Reports: Hx Depression Past Surgical History: Reports: Hx Orthopedic Surgery - Back Sx x2 - Immunizations Hx Diphtheria, Pertussis, Tetanus Vaccination: Yes Review of Systems - Review of Systems Constitutional: No symptoms reported EENT: No symptoms reported Cardiovascular: No symptoms reported Respiratory: No symptoms reported Gastrointestinal: No symptoms reported Genitourinary: No symptoms reported Male Genitourinary: No symptoms reported Musculoskeletal: See HPI, Joint pain - Left hip pain Skin: No symptoms reported Hematologic/Lymphatic: No symptoms reported Neurological/Psychological: No symptoms reported Physical Exam - Vital signs Vitals: Temp 97.5 F 03/06/20 20:15 Interpretation: Normal - General General appearance: Appears well - HEENT Head: Normocephalic, Atraumatic Eyes: Normal Pupils: PERRL Sinus: Normal Nasal: Normal Mouth/Lips: Normal Mucous membranes: Normal Pharynx: Normal Neck: Normal - Respiratory Respiratory status: No respiratory distress Chest status: Nontender Breath sounds: Normal Chest palpation: Normal - Cardiovascular Rhythm: Regular Heart sounds: Normal auscultation Murmur: No - Abdominal Inspection: Normal Distension: No distension Bowel sounds: Normal Tenderness: Nontender Organomegaly: No organomegaly - Genitourinary Tenderness: Nontender - Extremities General upper extremity: Normal inspection General lower extremity: Tender - Left lateral hip on palpation Course - Vital Signs Vital signs: Temp Pulse Resp BP Pulse Ox 97.6 F 20 121/79 92 03/06/20 20:21 03/06/20 20:21 03/06/20 22:31 03/06/20 22:31 - Laboratory Result Diagrams: 03/06/20 22:20 03/06/20 21:15 Laboratory results interpreted by me: 03/06/20 03/06/20 21:15 22:20 RBC 3.74 L Hgb 12.9 L Hct 36.8 L MCV 99 H MCH 34.6 H RDW 14.2 H Plt Count 95 L Lymph % (Auto) 11.8 L AST 62 H Alkaline Phosphatase 215 H - Diagnostic Test Radiology reviewed: Reports reviewed - EKG Interpretation by Me EKG shows normal: Sinus rhythm Rate: Tachycardia Rhythm: NSR Critical Care Note - Critical Care Note Total time excluding time spent on procedures (mins): 90 Comments: I discussed this case with Dr. Jacob Block at 2200 and he advises CBC for platelet count and LFTs CMP's and alcohol level and clearance for EKG. And will call him with results. I discussed this case again with Jacob Block at 2310 with the 95,000 platelet count and the 266 alcohol level. His liver functions were mildly elevated but electrolytes were within normal limits as was his BUN and creatinine. He was given IV fluids 1 L wide open as well as Ativan 0.5 IV Discharge - Discharge Clinical Impression: Alcohol abuse Hip fracture, left Qualifiers: Encounter type: initial encounter Condition: Fair Disposition: ADMITTED INPATIENT Admitting Provider: Umair (Hospitalist) Unit Admitted: Medical Floor Additional Instructions: N.p.o. after midnight and be aware any withdrawal symptoms from alcoholism; and also be aware of any seizures. He has no history of this but has history of liver cirrhosis and alcoholism. Referrals: SARA YAÑEZ, [Primary Care Provider] - Follow up as needed
[2020-03-06] MEDS ORDERED: NORMAL SALINE 1000 ML 1,000 ML with POTASSIUM CHLORIDE 20 MEQ, MAGNESIUM SULFATE 8 MEQ,... IV ONE ×5 (21:59)
[2020-03-06 22:20] LABS: ALBUMIN 3.7 g/dL (3.5-5.0); ALCOHOL 266 mg/dL (NONE DETECTED); ALKALINE PHOSPHATASE 215 U/L (38-126); ANION GAP 11 (5-19); ASPARTATE AMINO TRANSFERASE 62 U/L (17-59); BILIRUBIN,DIRECT 0.3 mg/dL (0.0-0.4); BILIRUBIN,TOTAL 0.9 mg/dL (0.2-1.3); BLOOD UREA NITROGEN 8 mg/dL (7-20); CALCIUM 8.6 mg/dL (8.4-10.2); CARBON DIOXIDE 22 mmol/L (22-30); CHLORIDE 106 mmol/L (98-107); GLUCOSE 98 mg/dL (75-110); TOTAL PROTEIN 7.4 g/dL (6.3-8.2)
[2020-03-06 22:35] LABS: ABSOLUTE BASOPHILS # (AUTO) 0.1 10^3/uL (0.0-0.2); ABSOLUTE EOSINOPHILS # (AUTO) 0.1 10^3/uL (0.0-0.6); ABSOLUTE LYMPHOCYTES (AUTO) 0.9 10^3/uL (0.5-4.7); ABSOLUTE MONOCYTES (AUTO) 0.8 10^3/uL (0.1-1.4); ABSOLUTE NEUT (AUTO) 5.7 10^3/uL (1.7-8.2); BASOPHILS % (AUTO) 0.8 % (0-2); EOSINOPHILS % (AUTO) 1.2 % (0-6); HEMATOCRIT 36.8 % (37.9-51.0); HEMOGLOBIN 12.9 g/dL (13.5-17.0); LYMPHOCYTES % (AUTO) 11.8 % (13-45); MEAN CORPUSCULAR HEMOGLOBIN 34.6 pg (27.0-33.4); MEAN CORPUSCULAR HGB CONC 35.1 g/dL (32.0-36.0); MEAN CORPUSCULAR VOLUME 99 fl (80-97); RED BLOOD COUNT 3.74 10^6/uL (4.35-5.55); RED CELL DISTRIBUTION WIDTH 14.2 % (11.5-14.0); SEGMENTED NEUTROPHILS % (AUTO) 76.2 % (42-78); TOTAL CELLS COUNTED % (AUTO) 100 %; WHITE BLOOD COUNT 7.5 10^3/uL (4.0-10.5)
[2020-03-06 22:53] LABS: PLATELET COUNT 95 10^3/uL (150-450)
[2020-03-06] MEDS ORDERED: NORMAL SALINE 1000 ML 1,000 ML IV ONE (23:08)
[2020-03-06] MEDS ORDERED: LORAZEPAM INJ 2 MG/1 ML VIAL IV ONE ×2 (23:09)
[2020-03-06] MEDS ORDERED: MAGNESIUM HYDROXIDE SUSP 30 ML UDCUP PO PRN (23:15)
[2020-03-06] MEDS ORDERED: LORAZEPAM INJ 2 MG/1 ML VIAL IV PRN (23:15)
[2020-03-06] MEDS ORDERED: DIAZEPAM INJ 10 MG/2 ML DISP.SYRIN IV PRN (23:15)
[2020-03-06] MEDS ORDERED: MAG HYDROX/AL HYDROX/SIMETH SUSP 30 ML UDCUP PO PRN (23:15)
[2020-03-06 23:32] LABS: INTERNATIONAL RATION (INR) 1.09; PROTHROMBIN TIME 14.1 SEC (11.4-15.4)
[2020-03-06 23:33] LABS: PARTIAL THROMBOPLASTIN TIME 33.7 SEC (23.5-35.8)
--- NOTE | 2020-03-07 | EKG REPORT ---
SEVERITY:- ABNORMAL ECG - SINUS TACHYCARDIA WITH IRREGULAR RATE 99-152 LEFT ATRIAL ABNORMALITY BORDERLINE PROLONGED QT INTERVAL : Confirmed by: Wilton Zambrano 06-Mar-2020 23:59:51
--- NOTE | 2020-03-07 00:42 | RADIOLOGY REPORT (SQ) ---
CHEST 1 VIEW on 03/06/2020 at 11:37 PM CLINICAL INDICATION: Preop left hip fracture fixation COMPARISON: 03/20/2018 FINDINGS: The lungs are clear. Cardiac, hilar and mediastinal contours are within normal limits. Pulmonary vascularity is within normal limits. The patient is status post vertebroplasty/kyphoplasty of a few vertebral bodies. No acute bony abnormality is noted. IMPRESSION: No active disease.
[2020-03-07] MEDS: MORPHINE SULFATE 10 MG/ML INJ IV PRN ×3 (01:54→21:30)
[2020-03-07 02:27] LABS: URINE AMPHETAMINES SCREEN NEGATIVE; URINE BARBITURATES SCREEN NEGATIVE; URINE BENZODIAZEPINES SCREEN NEGATIVE; URINE COCAINE SCREEN NEGATIVE; URINE MARIJUANA (THC) SCREEN NEGATIVE; URINE METHADONE SCREEN NEGATIVE; URINE PHENCYCLIDINE SCREEN NEGATIVE
--- NOTE | 2020-03-07 05:11 | PDOC H&P ---
History of Present Illness Admission Date/PCP: 03/06/20 23:39 SARA YAÑEZ DO Patient complains of: Left hip pain History of Present Illness: JEANNINE LAZO JR is a 74 year old male with a past medical history of hypertension, COPD, BPH, depression, chronic pain, thrombocytopenia, tobacco and alcohol abuse with alcohol withdrawal DTs. Presents after tripping resulting in loss of balance and a fall to the floor and subsequent left hip pain. He denies loss of consciousness, limb shaking or tongue biting. He admits to poor balance. He denies recent change in his medication regiment. In the emergency department he is found to have a jolly affect despite a left-sided hip fracture, thrombocytopenia and alcohol level of 266. Orthopedic surgery is consulted, he received symptomatic management, thiamine and referred to the hospitalist for admission. Past Medical History Cardiac Medical History: Reports: Hypertension Pulmonary Medical History: Reports: Chronic Obstructive Pulmonary Disease (COPD) GI Medical History: Reports: Cirrhosis, Gastroesophageal Reflux Disease Psychiatric Medical History: Reports: Depression Past Surgical History Past Surgical History: Reports: Orthopedic Surgery - Back Sx x2 Social History Information Source: Patient, [facility] Records Lives with: Family - Smoking Status: Current Some Day Smoker Cigarettes Packs Per Day: 1 Cigars Per Day: 5 Number of Years Smokin Last Time Smoked: t Frequency of Alcohol Use: Heavy Hx Recreational Drug Use: No Hx Prescription Drug Abuse: No - Advance Directive Resuscitation Status: Full Code Family History Family History: COPD, Hypertension Parental Family History Reviewed: Yes Children Family History Reviewed: Yes Sibling(s) Family History Reviewed.: Yes Medication/Allergy Home Medications: Cholecalciferol (Vitamin D3) [Vitamin D3 1000 Unit Tablet] 1,000 unit PO DAILY 03/23/18 Finasteride [Proscar 5 mg Tablet] 5 mg PO DAILY 03/23/18 Buspirone HCl [Buspar 10 mg Tablet] 10 mg PO Q12 tablet 03/26/18 Cefpodoxime Proxetil [Vantin 200 mg Tablet] 200 mg PO Q12 #18 tablet 03/26/18 Tamsulosin HCl [Flomax 0.4 mg Cap.sr] 0.4 mg PO PCSUPPER cap.sr.24h 03/26/18 Thiamine HCl [Thiamine 100 mg Tablet] 100 mg PO DAILY tablet 03/26/18 Venlafaxine HCl ER [Effexor Xr 37.5 mg Cap.sr] 75 mg PO Q12 cap.sr.24h 03/26/18 Divalproex Sodium [Depakote ER 500 mg Tab.sr] 500 mg PO DAILY #30 tab.sr.24h 03/31/18 Doxycycline Hyclate [Vibramycin 100 mg Tablet] 100 mg PO Q12A 5 Days #10 tablet 03/31/18 Gabapentin [Neurontin 300 mg Capsule] 300 mg PO Q8 30 Days #90 capsule 03/31/18 Lorazepam [Ativan 0.5 mg Tablet] 0.25 mg PO DAILY 20 Days #20 tablet 03/31/18 Magnesium Oxide [Mag-Ox 400 mg Tablet] 800 mg PO TID tablet 03/31/18 Amox Tr/Potassium Clavulanate [Augmentin 875-125 Tablet] 1 tab PO BID 14 Days #28 tablet 07/09/18 Neomycin/Polymyxin B Sulf/Hc [Whk[place]ne-Crtykspwt-Ak Ear Susp] 4 drop OT BID 10 Days #1 bottle 07/09/18 Allergies/Adverse Reactions: No Known Allergies Allergy (Verified 07/09/18 14:40) Review of Systems Constitutional: ABSENT: chills, fever(s), headache(s), weight gain, weight loss Eyes: ABSENT: visual disturbances Ears: ABSENT: hearing changes Cardiovascular: ABSENT: chest pain, dyspnea on exertion, edema, orthropnea, palpitations Respiratory: ABSENT: cough, hemoptysis Gastrointestinal: ABSENT: abdominal pain, constipation, diarrhea, hematemesis, hematochezia, nausea, vomiting Genitourinary: ABSENT: dysuria, hematuria Musculoskeletal: PRESENT: as per HPI, back pain, muscle weakness. ABSENT: joint swelling Integumentary: ABSENT: rash, wounds Neurological: PRESENT: as per HPI, lack of coordination, paresthesias, weakness. ABSENT: abnormal gait, abnormal speech, confusion, dizziness, focal weakness, syncope Psychiatric: ABSENT: anxiety, depression, homidical ideation, suicidal ideation Endocrine: ABSENT: cold intolerance, heat intolerance, polydipsia, polyuria Hematologic/Lymphatic: ABSENT: easy bleeding, easy bruising Physical Exam Vital Signs: Temp Pulse Resp BP Pulse Ox 98.3 F 117 H 14 111/64 88 L 03/07/20 03:23 03/07/20 03:23 03/07/20 03:23 03/07/20 03:23 03/07/20 03:23 Intake & Output 03/05/20 03/06/20 03/07/20 11:59 11:59 11:59 Weight 63.9 kg General appearance: PRESENT: cooperative, mild distress, well-developed, well- nourished. ABSENT: hard of hearing, morbidly obese, obese, severe distress, thin, other Head exam: PRESENT: atraumatic, normocephalic Eye exam: PRESENT: conjunctiva pink, EOMI, PERRLA. ABSENT: scleral icterus Ear exam: PRESENT: normal external ear exam Mouth exam: PRESENT: moist, tongue midline Neck exam: ABSENT: carotid bruit, JVD, lymphadenopathy, thyromegaly Respiratory exam: PRESENT: prolonged expiratory phas, symmetrical, tachypnea. ABSENT: accessory muscle use, rhonchi, stridor Cardiovascular exam: PRESENT: +S1, +S2, tachycardia. ABSENT: gallop Pulses: PRESENT: normal dorsalis pedis pul Vascular exam: PRESENT: normal capillary refill GI/Abdominal exam: PRESENT: normal bowel sounds, soft. ABSENT: distended, guarding, mass, organolmegaly, rebound, tenderness Rectal exam: PRESENT: deferred Musculoskeletal exam: PRESENT: deformity. ABSENT: ambulatory, full ROM Neurological exam: PRESENT: alert, awake, oriented to person, oriented to place, oriented to time, oriented to situation, CN II-XII grossly intact. ABSENT: motor sensory deficit Psychiatric exam: PRESENT: anxious, unusual affect. ABSENT: appropriate affect Skin exam: PRESENT: dry, intact, warm. ABSENT: cyanosis, rash Results Laboratory Results: 03/06/20 22:20 03/06/20 21:15 03/06/20 03/06/20 03/06/20 21:15 21:15 21:15 WBC Cancelled RBC Cancelled Hgb Cancelled Hct Cancelled MCV Cancelled MCH Cancelled MCHC Cancelled RDW Cancelled Plt Count Cancelled Seg Neutrophils % Cancelled Sodium 138.7 Potassium 4.0 Chloride 106 Carbon Dioxide 22 Anion Gap 11 BUN 8 Creatinine 0.66 Est GFR ( Amer) > 60 Glucose 98 Calcium 8.6 Magnesium 1.7 Total Bilirubin 0.9 AST 62 H Alkaline Phosphatase 215 H Total Protein 7.4 Albumin 3.7 03/06/20 22:20 WBC 7.5 RBC 3.74 L Hgb 12.9 L Hct 36.8 L MCV 99 H MCH 34.6 H MCHC 35.1 RDW 14.2 H Plt Count 95 L Seg Neutrophils % 76.2 Sodium Potassium Chloride Carbon Dioxide Anion Gap BUN Creatinine Est GFR ( Amer) Glucose Calcium Magnesium Total Bilirubin AST Alkaline Phosphatase Total Protein Albumin Impressions: Chest X-Ray 03/06/20 00:00 IMPRESSION: No active disease. Hip X-Ray 03/06/20 00:00 IMPRESSION: Intertrochanteric fracture of the left femur. Assessment and Plan - Diagnosis (1) Thrombocytopenia Is this a current diagnosis for this admission?: Yes Plan: Secondary to chronic alcoholism, follow-up CBC (2) Hip fracture, left Qualifiers: Encounter type: initial encounter Is this a current diagnosis for this admission?: Yes Plan: Complicated by alcoholism, neuropathy, likely osteopenia and acute intoxication. For the moment no acute alcohol withdrawal present and as such No acute cardiopulmonary modifiable risk factors preventing orthopedic surgery. Follow-up orthopedic surgery consult. Anticipate prolonged rehab. (3) Alcohol withdrawal delirium Is this a current diagnosis for this admission?: Yes Plan: Thiamine, Valium and Ativan PRN for prevention of acute alcohol withdrawal. (4) COPD (chronic obstructive pulmonary disease) Qualifiers: Chronic bronchitis type: unspecified Is this a current diagnosis for this admission?: Yes Plan: Albuterol, Atrovent, flutter valve, supplemental oxygen (5) Physical deconditioning Is this a current diagnosis for this admission?: Yes Plan: Anticipate prolonged rehab. Follow-up PT consult - Time Time Spent with patient: 25-34 minutes - Inpatient Certification Medical Necessity: Need Close Monitoring Due to Risk of Patient Decompensation
[2020-03-07] MEDS: GABAPENTIN 100 MG CAPSULE PO SCH ×2 (05:12→18:30)
[2020-03-07] MEDS: HEPARIN SOD (PORCINE) 5,000 UNIT/ML 1 ML VIAL SUBCUT SCH ×3 (05:12→21:58)
[2020-03-07 05:26] LABS: ABSOLUTE BASOPHILS # (AUTO) 0.1 10^3/uL (0.0-0.2); ABSOLUTE LYMPHOCYTES (AUTO) 0.6 10^3/uL (0.5-4.7); ABSOLUTE MONOCYTES (AUTO) 0.8 10^3/uL (0.1-1.4); ABSOLUTE NEUT (AUTO) 5.2 10^3/uL (1.7-8.2); BASOPHILS % (AUTO) 0.9 % (0-2); EOSINOPHILS % (AUTO) 0.3 % (0-6); HEMATOCRIT 35.7 % (37.9-51.0); HEMOGLOBIN 12.7 g/dL (13.5-17.0); LYMPHOCYTES % (AUTO) 9.5 % (13-45); MEAN CORPUSCULAR HEMOGLOBIN 34.6 pg (27.0-33.4); MEAN CORPUSCULAR HGB CONC 35.5 g/dL (32.0-36.0); MEAN CORPUSCULAR VOLUME 97 fl (80-97); MONOCYTES % (AUTO) 12.1 % (3-13); RED BLOOD COUNT 3.67 10^6/uL (4.35-5.55); SEGMENTED NEUTROPHILS % (AUTO) 77.2 % (42-78); TOTAL CELLS COUNTED % (AUTO) 100 %; WHITE BLOOD COUNT 6.7 10^3/uL (4.0-10.5)
[2020-03-07 05:32] LABS: ANION GAP 11 (5-19); BLOOD UREA NITROGEN 8 mg/dL (7-20); CARBON DIOXIDE 19 mmol/L (22-30); CHLORIDE 108 mmol/L (98-107); GLUCOSE 82 mg/dL (75-110); POTASSIUM 4.1 mmol/L (3.6-5.0)
[2020-03-07 05:59] LABS: PLATELET COUNT 85 10^3/uL (150-450)
[2020-03-07] MEDS ORDERED: TAMSULOSIN HCL 0.4 MG CAP.SR.24H PO ONE (06:00)
[2020-03-07] MEDS: NORMAL SALINE 1000 ML 1,000 ML IV PRN ×2 (08:13→22:03)
[2020-03-07] MEDS: IPRATROPIUM/ALBUTEROL 0.5-2.5 MG/3 ML AMPUL NEB PRN (08:53)
[2020-03-07] MEDS ORDERED: THIAMINE HCL 100 MG, FOLIC ACID 1 MG in NORMAL SALINE 250 ML IV SCH (10:00)
[2020-03-07] MEDS ORDERED: LORAZEPAM INJ 2 MG/1 ML VIAL IV PRN ×3 (10:02→10:07)
--- NOTE | 2020-03-07 10:17 | PDOC PROGRESS REPORT ---
Subjective Progress Note for:: 03/07/20 Reason For Visit: LEFT HIP FRACTURE,ALCOHOL INTOX C PENDING WITHDRAW Physical Exam Vital Signs: Temp Pulse Resp BP Pulse Ox 99.3 F 120 H 16 124/74 91 L 03/07/20 07:33 03/07/20 08:53 03/07/20 08:53 03/07/20 07:33 03/07/20 08:53 Intake & Output 03/06/20 03/07/20 03/08/20 06:59 06:59 06:59 Intake Total 1000 Output Total 0 Balance 1000 Weight 62.8 kg General appearance: PRESENT: no acute distress, cooperative Neck exam: ABSENT: JVD Respiratory exam: PRESENT: clear to auscultation jacky, unlabored. ABSENT: tachypnea, wheezes Cardiovascular exam: PRESENT: +S1, +S2, tachycardia. ABSENT: bradycardia, gallop GI/Abdominal exam: PRESENT: soft. ABSENT: rebound, rigid, tenderness Neurological exam: PRESENT: alert, awake Psychiatric exam: ABSENT: anxious Focused psych exam: ABSENT: pressured speech Skin exam: ABSENT: jaundice Results Laboratory Results: 03/07/20 04:34 03/07/20 04:34 03/06/20 03/06/20 03/06/20 21:15 21:15 21:15 WBC Cancelled RBC Cancelled Hgb Cancelled Hct Cancelled MCV Cancelled MCH Cancelled MCHC Cancelled RDW Cancelled Plt Count Cancelled Seg Neutrophils % Cancelled Sodium 138.7 Potassium 4.0 Chloride 106 Carbon Dioxide 22 Anion Gap 11 BUN 8 Creatinine 0.66 Est GFR ( Amer) > 60 Glucose 98 Calcium 8.6 Magnesium 1.7 Total Bilirubin 0.9 AST 62 H Alkaline Phosphatase 215 H Total Protein 7.4 Albumin 3.7 03/06/20 03/07/20 03/07/20 22:20 04:34 04:34 WBC 7.5 6.7 RBC 3.74 L 3.67 L Hgb 12.9 L 12.7 L Hct 36.8 L 35.7 L MCV 99 H 97 MCH 34.6 H 34.6 H MCHC 35.1 35.5 RDW 14.2 H 14.0 Plt Count 95 L 85 L Seg Neutrophils % 76.2 77.2 Sodium 138.1 Potassium 4.1 Chloride 108 H Carbon Dioxide 19 L Anion Gap 11 BUN 8 Creatinine 0.56 Est GFR ( Amer) > 60 Glucose 82 Calcium 8.0 L Magnesium Total Bilirubin AST Alkaline Phosphatase Total Protein Albumin Impressions: Chest X-Ray 03/06/20 00:00 IMPRESSION: No active disease. Hip X-Ray 03/06/20 00:00 IMPRESSION: Intertrochanteric fracture of the left femur. Assessment and Plan - Diagnosis (1) Hip fracture, left Qualifiers: Encounter type: initial encounter Fracture type: closed Qualified Code(s): S72.002A - Fracture of unspecified part of neck of left femur, initial encounter for closed fracture Is this a current diagnosis for this admission?: Yes Plan: Secondary to mechanical fall likely from alcohol intoxication. Orthopedics consulted Pain control with Toradol and morphine as needed Will eventually need PT OT (2) Thrombocytopenia Is this a current diagnosis for this admission?: Yes Plan: Secondary to chronic alcoholism, will monitor. Uncertain if he has a history of cirrhosis. (3) Alcohol dependence Qualifiers: Substance use status: in withdrawal Complication of substance-induced condition: with delirium Qualified Code(s): F10.231 - Alcohol dependence with withdrawal delirium Is this a current diagnosis for this admission?: Yes Plan: Came in with alcohol intoxication with alcohol level of 266. Seems to be sobering up now. At risk of alcohol withdrawal. Will monitor closely with CIWA. Standing Valium twice daily prophylactically to prevent withdrawal. Ativan as needed based off elevated CIWA scores. (4) COPD (chronic obstructive pulmonary disease) Qualifiers: Chronic bronchitis type: unspecified Is this a current diagnosis for this admission?: Yes Plan: Albuterol, Atrovent, flutter valve, supplemental oxygen - Time Time Spent with patient: Less than 15 minutes
--- NOTE | 2020-03-07 10:57 | PDOC CONSULTATION ---
Consultation Consult Date: 03/07/20 Attending physician:: DEE DEE RIGGS Provider Consulted: DAVION SANTIAGO Consult reason:: Left hip displaced intertrochanteric fracture History of Present Illness Admission Date/PCP: 03/06/20 23:39 Patient complains of: Left hip pain History of Present Illness: JEANNINE LAZO JR is a 74-year-old man with COPD, thrombocytopenia, tobacco and alcohol abuse who presented to the emergency department last evening while intoxicated. The patient had sustained a fall at home resulting in a displaced left hip intertrochanteric fracture. He has been admitted to the hospitalist service for medical optimization and treatment of his multiple medical problems with a particular concern regarding the development of DTs. Past Medical History Cardiac Medical History: Reports: Hypertension Pulmonary Medical History: Reports: Chronic Obstructive Pulmonary Disease (COPD) GI Medical History: Reports: Cirrhosis, Gastroesophageal Reflux Disease Psychiatric Medical History: Reports: Alcohol Dependency, Depression, Tobacco Dependency Hematology: Reports: Other - Thrombocytopenia Past Surgical History Past Surgical History: Reports: Orthopedic Surgery - Back Sx x2 Social History Lives with: Family - Smoking Status: Current Some Day Smoker Cigarettes Packs Per Day: 1 Cigars Per Day: 5 Number of Years Smokin Last Time Smoked: t Frequency of Alcohol Use: Heavy Hx Recreational Drug Use: No Hx Prescription Drug Abuse: No - Advance Directive Resuscitation Status: Full Code Family History Family History: COPD, Hypertension Parental Family History Reviewed: Yes Children Family History Reviewed: Yes Sibling(s) Family History Reviewed.: Yes Medication/Allergy Home Medications: Cholecalciferol (Vitamin D3) [Vitamin D3 1000 Unit Tablet] 1,000 unit PO DAILY 03/23/18 Finasteride [Proscar 5 mg Tablet] 5 mg PO DAILY 03/23/18 Buspirone HCl [Buspar 10 mg Tablet] 10 mg PO Q12 tablet 03/26/18 Cefpodoxime Proxetil [Vantin 200 mg Tablet] 200 mg PO Q12 #18 tablet 03/26/18 Tamsulosin HCl [Flomax 0.4 mg Cap.sr] 0.4 mg PO PCSUPPER cap.sr.24h 03/26/18 Thiamine HCl [Thiamine 100 mg Tablet] 100 mg PO DAILY tablet 03/26/18 Venlafaxine HCl ER [Effexor Xr 37.5 mg Cap.sr] 75 mg PO Q12 cap.sr.24h 03/26/18 Divalproex Sodium [Depakote ER 500 mg Tab.sr] 500 mg PO DAILY #30 tab.sr.24h 03/31/18 Doxycycline Hyclate [Vibramycin 100 mg Tablet] 100 mg PO Q12A 5 Days #10 tablet 03/31/18 Gabapentin [Neurontin 300 mg Capsule] 300 mg PO Q8 30 Days #90 capsule 03/31/18 Lorazepam [Ativan 0.5 mg Tablet] 0.25 mg PO DAILY 20 Days #20 tablet 03/31/18 Magnesium Oxide [Mag-Ox 400 mg Tablet] 800 mg PO TID tablet 03/31/18 Amox Tr/Potassium Clavulanate [Augmentin 875-125 Tablet] 1 tab PO BID 14 Days #28 tablet 07/09/18 Neomycin/Polymyxin B Sulf/Hc [Xtsocgew-Kkudislzm-Ex Ear Susp] 4 drop OT BID 10 Days #1 bottle 07/09/18 Allergies/Adverse Reactions: No Known Allergies Allergy (Verified 07/09/18 14:40) Review of Systems All systems: reviewed and no additional remarkable complaints except as stated - As per HPI Physical Exam Vital Signs: Temp Pulse Resp BP Pulse Ox 99.3 F 120 H 16 124/74 91 L 03/07/20 07:33 03/07/20 08:53 03/07/20 08:53 03/07/20 07:33 03/07/20 08:53 Intake & Output 03/06/20 03/07/20 03/08/20 06:59 06:59 06:59 Intake Total 1000 Output Total 0 Balance 1000 Weight 62.8 kg General appearance: PRESENT: no acute distress Head exam: PRESENT: atraumatic, normocephalic Eye exam: PRESENT: EOMI Neck exam: PRESENT: full ROM Respiratory exam: PRESENT: prolonged expiratory phas Cardiovascular exam: PRESENT: RRR, +S1, +S2 Pulses: PRESENT: +2 pedal pulses bilateral GI/Abdominal exam: PRESENT: soft Rectal exam: PRESENT: deferred Musculoskeletal exam: PRESENT: other - The left lower extremity is shortened and externally rotated. The patient is able to dorsiflex and plantarflex his foot. Sensation is intact to touch. 2+ dorsalis pedis and posterior tibial pulses. Results Laboratory Results: 03/07/20 04:34 03/07/20 04:34 03/06/20 03/06/20 03/06/20 21:15 21:15 21:15 WBC Cancelled RBC Cancelled Hgb Cancelled Hct Cancelled MCV Cancelled MCH Cancelled MCHC Cancelled RDW Cancelled Plt Count Cancelled Seg Neutrophils % Cancelled Sodium 138.7 Potassium 4.0 Chloride 106 Carbon Dioxide 22 Anion Gap 11 BUN 8 Creatinine 0.66 Est GFR ( Amer) > 60 Glucose 98 Calcium 8.6 Magnesium 1.7 Total Bilirubin 0.9 AST 62 H Alkaline Phosphatase 215 H Total Protein 7.4 Albumin 3.7 03/06/20 03/07/20 03/07/20 22:20 04:34 04:34 WBC 7.5 6.7 RBC 3.74 L 3.67 L Hgb 12.9 L 12.7 L Hct 36.8 L 35.7 L MCV 99 H 97 MCH 34.6 H 34.6 H MCHC 35.1 35.5 RDW 14.2 H 14.0 Plt Count 95 L 85 L Seg Neutrophils % 76.2 77.2 Sodium 138.1 Potassium 4.1 Chloride 108 H Carbon Dioxide 19 L Anion Gap 11 BUN 8 Creatinine 0.56 Est GFR ( Amer) > 60 Glucose 82 Calcium 8.0 L Magnesium Total Bilirubin AST Alkaline Phosphatase Total Protein Albumin Impressions: Chest X-Ray 03/06/20 00:00 IMPRESSION: No active disease. Hip X-Ray 03/06/20 00:00 IMPRESSION: Intertrochanteric fracture of the left femur. Assessment & Plan - Diagnosis (1) Hip fracture, left Qualifiers: Encounter type: initial encounter Fracture type: closed Qualified Code(s): S72.002A - Fracture of unspecified part of neck of left femur, initial encounter for closed fracture Is this a current diagnosis for this admission?: Yes (2) Thrombocytopenia Is this a current diagnosis for this admission?: Yes (3) Alcohol dependence Qualifiers: Substance use status: in withdrawal Complication of substance-induced condition: with delirium Qualified Code(s): F10.231 - Alcohol dependence with withdrawal delirium Is this a current diagnosis for this admission?: Yes (4) Alcohol withdrawal delirium Is this a current diagnosis for this admission?: Yes - Time Time Spent: 30 to 50 Minutes Anticipated discharge: SNF Within: within 72 hours - Plan Summary Plan Summary: I have discussed with the patient the clinical and radiographic findings of a displaced fracture of the left hip in the intertrochanteric region. I have recommended open reduction with internal fixation using a long intramedullary nail. Risks, benefits, and alternatives were discussed with the patient. Risks include the risk of with anesthesia, the risk of infection, the risk of injury to nerves and vessels, the risk of nonunion and malunion, the risk of bleeding and possible need for blood transfusion, as well as the risk of deep venous thrombosis. An opportunity for questions was provided. All questions were answered to the patient's satisfaction. The patient expressed understanding and wishes to proceed with surgical internal fixation.
[2020-03-07] MEDS ORDERED: ONDANSETRON HCL INJ/PF 4 MG/2 ML SDV ONE ×2 (11:47→14:20)
[2020-03-07] MEDS ORDERED: DIAZEPAM INJ 10 MG/2 ML DISP.SYRIN IV SCH (14:00)
[2020-03-07] MEDS ORDERED: FENTANYL CITRATE INJ/PF 100 MCG/2 ML AMPUL ONE (14:20)
[2020-03-07] MEDS ORDERED: DEXAMETHASONE SOD PHOSPHATE INJ 4 MG/1 ML VIAL ONE (14:20)
[2020-03-07] MEDS ORDERED: MIDAZOLAM 2 MG/2 ML INJ ONE (14:20)
[2020-03-07] MEDS ORDERED: MORPHINE SULFATE 10 MG/ML INJ ONE (14:21)
[2020-03-07] MEDS ORDERED: PROPOFOL INJ 200 MG/20 ML VIAL IV ONE (14:21)
[2020-03-07] MEDS: DOCUSATE SODIUM 100 MG CAPSULE PO SCH ×2 (14:31→18:10)
[2020-03-07] MEDS ORDERED: CEFAZOLIN INJ 1 GM VIAL ONE (15:00)
[2020-03-07] MEDS ORDERED: MEPERIDINE HCL/PF INJ 25 MG/1 ML DISP.SYRIN IV PRN (15:28)
[2020-03-07] MEDS ORDERED: PROMETHAZINE HCL INJ 25 MG/1 ML VIAL IV PRN ×2 (15:28)
[2020-03-07] MEDS ORDERED: ONDANSETRON HCL INJ/PF 4 MG/2 ML SDV IV PRN (15:28)
[2020-03-07] MEDS ORDERED: OXYCODONE-ACETAMINOPHEN 5-325 MG TABLET PO PRN ×2 (15:28)
[2020-03-07] MEDS ORDERED: FENTANYL CITRATE INJ/PF 100 MCG/2 ML AMPUL IV PRN ×3 (15:28)
[2020-03-07] MEDS ORDERED: DIPHENHYDRAMINE HCL 50 MG/ML VIAL IV PRN (15:28)
[2020-03-07] MEDS ORDERED: MORPHINE SULFATE 10 MG/ML INJ IV PRN (15:28)
--- NOTE | 2020-03-07 16:33 | Operative Report ---
Operative Report DATE OF SURGERY: 03/07/20 PREOPERATIVE DIAGNOSIS: left hip displaced intertrochanteric fracture POSTOPERATIVE DIAGNOSIS: left hip displaced intertrochanteric fracture OPERATION: Cephalomedullary nail left hip intertrochanteric fracture SURGEON: DAVION SANTIAGO ANESTHESIA: Spinal COMPLICATIONS: none ESTIMATED BLOOD LOSS: 100 cc INTRAOPERATIVE FINDINGS: same PROCEDURE: Indications for Procedure: Patient is a 74-year-old man with COPD, thrombocytopenia, tobacco abuse disorder, chronic alcohol abuse with cirrhosis who sustained a fall last evening resulting in a displaced fracture of the left hip in the intertrochanteric region. Description of procedure: Following the induction of a spinal anesthetic and administration of 2 g of Ancef, the patient was positioned on the fracture table. All bony prominences were padded. Traction was placed on the leg to restore alignment of the intertrochanteric fracture. Image intensification was brought in which confirmed anatomic reduction. The left lower extremity was then sterilely prepped with ChloraPrep and draped in standard fashion. An incis ion was made proximal to the greater trochanter. A small slit in the fascia was then performed. Guidewire was placed into the greater trochanter and under image intensification its position was confirmed. The guidewire was overreamed. A long ball headed guidewire was then placed centrally down the canal and its position distally within the distal femur was checked under image intensification. Sequential reaming up to a size 12.5 was then performed. Wilmer was placed down the length of the femur. Using the guide for the gamma nail a guidewire was placed centrally within the femoral head and its position was confirmed under image intensification. The wire was measured, reamed, and a screw was placed over the wire into the head. Position of the screw was checked under image intensification and found to be central within the head. It was locked dynamically proximally. The wounds were copiously irrigated. The fascia was reapproximated [id number] with 0 Vicryl. The subcutaneous tissue was closed with 2-0 Vicryl. The skin was closed with yudelka. A sterile dressing was then applied. Patient tolerated the procedure well without complications and was brought to recovery room in stable condition. He will be seen by therapy tomorrow and progress weightbearing as tolerated with assist device. He will be maintained on 24 hours of prophylactic antibiotics.
--- NOTE | 2020-03-07 17:48 | RADIOLOGY REPORT (SQ) ---
EXAM DESCRIPTION: NO CHG FLUORO; FEMUR LEFT IMAGES COMPLETED DATE/TIME: 03/07/2020 5:35 pm REASON FOR STUDY: L HIP IM NAIL COMPARISON: Preoperative left hip radiographs. FLUOROSCOPY TIME: 0.7 minutes TECHNIQUE: Intra-operative images acquired during surgical procedure to evaluate progress. NUMBER OF IMAGES: 4 LIMITATIONS: None. FINDINGS: Patient undergoing open reduction internal fixation, correlate with operative note. IMPRESSION: IMAGE(S) OBTAINED DURING PROCEDURE. COMMENT: Quality ID [id number]: Final reports for procedures using fluoroscopy that document radiation exp osure indices, or exposure time and number of fluorographic images (if radiation exposure indices are not available) Please consult full operative report of the attending physician for description of the procedure. TECHNICAL DOCUMENTATION: JOB ID: [id number] 2010 [employer]- All Rights Reserved Reading location - IP/workstation name: [email or web address]
--- NOTE | 2020-03-07 17:48 | RADIOLOGY REPORT (SQ) ---
EXAM DESCRIPTION: NO CHG FLUORO; FEMUR LEFT IMAGES COMPLETED DATE/TIME: 03/07/2020 5:35 pm REASON FOR STUDY: L HIP IM NAIL COMPARISON: Preoperative left hip radiographs. FLUOROSCOPY TIME: 0.7 minutes TECHNIQUE: Intra-operative images acquired during surgical procedure to evaluate progress. NUMBER OF IMAGES: 4 LIMITATIONS: None. FINDINGS: Patient undergoing open reduction internal fixation, correlate with operative note. IMPRESSION: IMAGE(S) OBTAINED DURING PROCEDURE. COMMENT: Quality ID [id number]: Final reports for procedures using fluoroscopy that document radiation exp osure indices, or exposure time and number of fluorographic images (if radiation exposure indices are not available) Please consult full operative report of the attending physician for description of the procedure. TECHNICAL DOCUMENTATION: JOB ID: [id number] 2010 [employer]- All Rights Reserved Reading location - IP/workstation name: [email or web address]
[2020-03-07] MEDS ORDERED: GABAPENTIN 300 MG CAPSULE PO SCH (18:00)
[2020-03-07] MEDS: DIAZEPAM 5 MG TABLET PO SCH (18:10)
[2020-03-07] MEDS: TAMSULOSIN HCL 0.4 MG CAP.SR.24H PO SCH (18:10)
[2020-03-07] MEDS: CEFAZOLIN SODIUM 2 GM in DEXTROSE 5%-WATER 100 ML IV SCH (22:00)
[2020-03-08] MEDS: MORPHINE SULFATE 10 MG/ML INJ IV PRN ×3 (05:09→17:25)
[2020-03-08] MEDS: KETOROLAC TROMETHAMINE INJ/PF 30 MG/1 ML SDV IV PRN (05:10)
[2020-03-08] MEDS: CEFAZOLIN SODIUM 2 GM in DEXTROSE 5%-WATER 100 ML IV SCH ×2 (06:01→14:28)
[2020-03-08] MEDS: HEPARIN SOD (PORCINE) 5,000 UNIT/ML 1 ML VIAL SUBCUT SCH (06:03)
[2020-03-08 06:15] LABS: HEMATOCRIT 28.8 % (37.9-51.0); MEAN CORPUSCULAR HEMOGLOBIN 35.1 pg (27.0-33.4); MEAN CORPUSCULAR HGB CONC 36.1 g/dL (32.0-36.0); MEAN CORPUSCULAR VOLUME 97 fl (80-97); RED BLOOD COUNT 2.97 10^6/uL (4.35-5.55); RED CELL DISTRIBUTION WIDTH 13.6 % (11.5-14.0); WHITE BLOOD COUNT 7.3 10^3/uL (4.0-10.5)
[2020-03-08 07:45] LABS: HEMOGLOBIN 10.4 g/dL (13.5-17.0)
[2020-03-08 07:46] LABS: PLATELET COUNT 56 10^3/uL (150-450)
[2020-03-08 07:48] LABS: ABSOLUTE LYMPHOCYTES# (MANUAL) 0.4 10^3/uL (0.5-4.7); ABSOLUTE MONOCYTES # (MANUAL) 0.3 10^3/uL (0.1-1.4); BASOPHILS % (MANUAL) 0 % (0-2); EOSINOPHILS % (MANUAL) 0 % (0-6); LYMPHOCYTES % (MANUAL) 5 % (13-45); MONOCYTES % (MANUAL) 4 % (3-13); SEGMENTED NEUTROPHILS % (MAN) 91 % (42-78); TOTAL CELLS COUNTED 100
[2020-03-08 07:50] LABS: RBC MORPHOLOGY COMMENT NORMO-CYTIC/CHROMIC
[2020-03-08 07:51] LABS: PLATELET COMMENT DECREASED
[2020-03-08] MEDS: IPRATROPIUM/ALBUTEROL 0.5-2.5 MG/3 ML AMPUL NEB PRN (09:04)
[2020-03-08] MEDS ORDERED: ASPIRIN 325 MG TABLET PO SCH (10:00)
[2020-03-08] MEDS ORDERED: GABAPENTIN 300 MG CAPSULE PO SCH (10:00)
[2020-03-08] MEDS: THIAMINE HCL 100 MG TABLET PO SCH (11:03)
[2020-03-08] MEDS: DIAZEPAM 5 MG TABLET PO SCH ×2 (11:03→17:25)
[2020-03-08] MEDS: DOCUSATE SODIUM 100 MG CAPSULE PO SCH ×2 (11:03→17:24)
[2020-03-08] MEDS: FINASTERIDE 5 MG TABLET PO SCH (11:03)
[2020-03-08] MEDS: ONDANSETRON HCL INJ/PF 4 MG/2 ML SDV IV PRN (11:22)
--- NOTE | 2020-03-08 11:30 | PDOC PROGRESS REPORT ---
Subjective Progress Note for:: 03/08/20 Subjective:: Patient complains of pain in his hip. Also complains of neuropathic pain in his legs. States he takes gabapentin at home. Denies any confusion or agitation. Reason For Visit: LEFT HIP FRACTURE,ALCOHOL INTOX C PENDING WITHDRAW Physical Exam Vital Signs: Temp Pulse Resp BP Pulse Ox 97.4 F 81 16 142/84 H 97 03/08/20 08:01 03/08/20 09:07 03/08/20 09:07 03/08/20 08:01 03/08/20 09:07 Intake & Output 03/07/20 03/08/20 03/09/20 06:59 06:59 06:59 Intake Total 1000 4251.2 Output Total 0 525 Balance 1000 3726.2 Weight 62.8 kg 62.4 kg General appearance: PRESENT: no acute distress, cooperative Neck exam: ABSENT: JVD Respiratory exam: PRESENT: clear to auscultation jacky, unlabored. ABSENT: tachypnea, wheezes Cardiovascular exam: PRESENT: RRR, +S1, +S2. ABSENT: tachycardia GI/Abdominal exam: PRESENT: soft. ABSENT: rebound, rigid, tenderness Extremities exam: PRESENT: other - Clean dressing over left upper thigh Neurological exam: PRESENT: alert, awake, oriented to person, oriented to place, oriented to time Psychiatric exam: ABSENT: anxious Results Laboratory Results: 03/08/20 05:58 03/07/20 04:34 03/08/20 05:58 WBC 7.3 RBC 2.97 L Hgb 10.4 L D Hct 28.8 L MCV 97 MCH 35.1 H MCHC 36.1 H RDW 13.6 Plt Count 56 L Seg Neutrophils % Not Reportable Impressions: Chest X-Ray 03/06/20 00:00 IMPRESSION: No active disease. Hip X-Ray 03/06/20 00:00 IMPRESSION: Intertrochanteric fracture of the left femur. Femur X-Ray 03/07/20 00:00 IMPRESSION: IMAGE(S) OBTAINED DURING PROCEDURE. Fluoroscopy 03/07/20 00:00 IMPRESSION: IMAGE(S) OBTAINED DURING PROCEDURE. Assessment and Plan - Diagnosis (1) Hip fracture, left Qualifiers: Encounter type: initial encounter Fracture type: closed Qualified Code(s): S72.002A - Fracture of unspecified part of neck of left femur, initial encounter for closed fracture Is this a current diagnosis for this admission?: Yes Plan: Secondary to mechanical fall likely from alcohol intoxication. Patient was taken to the OR by Dr. Santos on 03/07/2024 for ORIF with intramed ullary nail placed. Physical and Occupational Therapy to evaluate. Pain control with Toradol and morphine as needed. Neurontin as well. DVT prophylaxis (2) Thrombocytopenia Is this a current diagnosis for this admission?: Yes Plan: Secondary to chronic alcoholism, will monitor. Uncertain if he has a history of cirrhosis. Platelets seem to have dropped to the 50s but so did some other blood counts. Will hold heparin today. Monitor blood counts closely. Low likelihood of HIT. (3) Alcohol dependence Qualifiers: Substance use status: in withdrawal Complication of substance-induced condition: with delirium Qualified Code(s): F10.231 - Alcohol dependence with withdrawal delirium Is this a current diagnosis for this admission?: Yes Plan: Came in with alcohol intoxication with alcohol level of 266 and now sober. At risk of alcohol withdrawal. Will monitor closely with CIWA. Standing Valium twice daily prophylactically to prevent withdrawal. Ativan as needed based off elevated CIWA scores. (4) COPD (chronic obstructive pulmonary disease) Qualifiers: Chronic bronchitis type: unspecified Is this a current diagnosis for this admission?: Yes Plan: Albuterol, Atrovent, flutter valve, supplemental oxygen (5) Neuropathy Is this a current diagnosis for this admission?: Yes Plan: Has neuropathy in lower extremities. Will continue gabapentin at 900 mg 3 times daily. Patient does state that he takes 1200 4 times daily at home but I wonder if this may be too strong for him. - Time Time Spent with patient: 15-24 minutes
[2020-03-08] MEDS: GABAPENTIN 300 MG CAPSULE PO SCH ×2 (14:27→22:10)
[2020-03-08] MEDS: FAMOTIDINE 20 MG TABLET PO SCH ×2 (14:28→22:11)
[2020-03-08] MEDS: TAMSULOSIN HCL 0.4 MG CAP.SR.24H PO SCH (17:24)
--- NOTE | 2020-03-08 18:50 | PDOC PROGRESS REPORT ---
Subjective Progress Note for:: 03/08/20 Subjective:: Patient complaining of postoperative pain in left hip. Reason For Visit: LEFT HIP FRACTURE,ALCOHOL INTOX C PENDING WITHDRAW Physical Exam Vital Signs: Temp Pulse Resp BP Pulse Ox 98.0 F 82 20 123/49 L 98 03/08/20 15:57 03/08/20 15:57 03/08/20 15:57 03/08/20 15:57 03/08/20 15:57 Intake & Output 03/07/20 03/08/20 03/09/20 06:59 06:59 06:59 Intake Total 1000 4251.2 340 Output Total 0 525 1175 Balance 1000 3726.2 -835 Weight 62.8 kg 62.4 kg General appearance: PRESENT: no acute distress Respiratory exam: PRESENT: unlabored Extremities exam: PRESENT: other - There is moderate bloody drainage of the incision at the hip. Alignment of the left hip is normal. Patient is able to DF and PF the foot. Sensation is at baseline. Neurological exam: PRESENT: alert Results Laboratory Results: 03/08/20 05:58 03/07/20 04:34 03/08/20 05:58 WBC 7.3 RBC 2.97 L Hgb 10.4 L D Hct 28.8 L MCV 97 MCH 35.1 H MCHC 36.1 H RDW 13.6 Plt Count 56 L Seg Neutrophils % Not Reportable Impressions: Chest X-Ray 03/06/20 00:00 IMPRESSION: No active disease. Hip X-Ray 03/06/20 00:00 IMPRESSION: Intertrochanteric fracture of the left femur. Femur X-Ray 03/07/20 00:00 IMPRESSION: IMAGE(S) OBTAINED DURING PROCEDURE. Fluoroscopy 03/07/20 00:00 IMPRESSION: IMAGE(S) OBTAINED DURING PROCEDURE. Assessment & Plan - Diagnosis (1) Hip fracture, left Qualifiers: Encounter type: initial encounter Fracture type: closed Qualified Code(s): S72.002A - Fracture of unspecified part of neck of left femur, initial encounter for closed fracture Is this a current diagnosis for this admission?: Yes Plan: POD # 1 s/p cephalomedullary nail for left hip intertrochanteric fracture 1. Physical therapy - WBAT with assist device 2. Thrombocytopenia: Plt count lower today. Relatively large amount of bleeding due to low platelet count. Patient is currently on ASA. Would consider d/c ASA. Agree with discontinuing heparin. 3. Prophylactic Ancef for 24 hours. (2) Thrombocytopenia Is this a current diagnosis for this admission?: Yes (3) Alcohol dependence Qualifiers: Substance use status: in withdrawal Complication of substance-induced condition: with delirium Qualified Code(s): F10.231 - Alcohol dependence with withdrawal delirium Is this a current diagnosis for this admission?: Yes (4) Alcohol withdrawal delirium Is this a current diagnosis for this admission?: Yes
[2020-03-09] MEDS: GABAPENTIN 300 MG CAPSULE PO SCH ×3 (05:26→21:09)
[2020-03-09 06:15] LABS: ABSOLUTE LYMPHOCYTES (AUTO) 0.8 10^3/uL (0.5-4.7); ABSOLUTE MONOCYTES (AUTO) 0.6 10^3/uL (0.1-1.4); BASOPHILS % (AUTO) 0.3 % (0-2); EOSINOPHILS % (AUTO) 0.2 % (0-6); HEMATOCRIT 24.8 % (37.9-51.0); HEMOGLOBIN 8.9 g/dL (13.5-17.0); LYMPHOCYTES % (AUTO) 12.4 % (13-45); MEAN CORPUSCULAR HEMOGLOBIN 35.3 pg (27.0-33.4); MEAN CORPUSCULAR HGB CONC 35.9 g/dL (32.0-36.0); MEAN CORPUSCULAR VOLUME 98 fl (80-97); MONOCYTES % (AUTO) 8.8 % (3-13); RED BLOOD COUNT 2.52 10^6/uL (4.35-5.55); RED CELL DISTRIBUTION WIDTH 13.7 % (11.5-14.0); SEGMENTED NEUTROPHILS % (AUTO) 78.3 % (42-78); TOTAL CELLS COUNTED % (AUTO) 100 %; WHITE BLOOD COUNT 6.4 10^3/uL (4.0-10.5)
[2020-03-09 06:24] LABS: ANION GAP 5 (5-19); BLOOD UREA NITROGEN 21 mg/dL (7-20); CALCIUM 7.9 mg/dL (8.4-10.2); CARBON DIOXIDE 25 mmol/L (22-30); CHLORIDE 105 mmol/L (98-107); GLUCOSE 87 mg/dL (75-110); POTASSIUM 3.8 mmol/L (3.6-5.0)
[2020-03-09 06:31] LABS: PLATELET COUNT 45 10^3/uL (150-450)
[2020-03-09] MEDS ORDERED: NORMAL SALINE 250 ML IV PRN ×2 (07:51)
[2020-03-09] MEDS: IPRATROPIUM/ALBUTEROL 0.5-2.5 MG/3 ML AMPUL NEB PRN (08:56)
[2020-03-09] MEDS ORDERED: MORPHINE SULFATE 10 MG/ML INJ IV PRN (09:11)
[2020-03-09] MEDS: ONDANSETRON HCL INJ/PF 4 MG/2 ML SDV IV PRN (09:40)
[2020-03-09] MEDS: THIAMINE HCL 100 MG TABLET PO SCH (09:44)
[2020-03-09] MEDS: FINASTERIDE 5 MG TABLET PO SCH (09:44)
[2020-03-09] MEDS: DOCUSATE SODIUM 100 MG CAPSULE PO SCH ×2 (09:44→17:52)
[2020-03-09] MEDS: FAMOTIDINE 20 MG TABLET PO SCH ×2 (09:44→21:09)
[2020-03-09] MEDS: DIAZEPAM 5 MG TABLET PO SCH ×2 (09:44→17:52)
[2020-03-09] MEDS ORDERED: NORMAL SALINE 1000 ML 500 ML IV ONE (12:38)
--- NOTE | 2020-03-09 12:56 | PDOC PROGRESS REPORT ---
Subjective Progress Note for:: 03/09/20 Subjective:: Patient feels well today. However he complains of significant pain in his left hip especially during physical therapy. I will give patient a dose of morphine 4 mg before PT. Denies any chest pain or shortness of breath. Did have some nausea yesterday. Reason For Visit: LEFT HIP FRACTURE,ALCOHOL INTOX C PENDING WITHDRAW Physical Exam Vital Signs: Temp Pulse Resp BP Pulse Ox 97.8 F 103 H 17 99/53 L 91 L 03/09/20 11:47 03/09/20 11:47 03/09/20 11:47 03/09/20 11:47 03/09/20 11:47 Intake & Output 03/08/20 03/09/20 03/10/20 06:59 06:59 06:59 Intake Total 4251.2 340 0 Output Total 525 1175 Balance 3726.2 -835 0 Weight 62.4 kg 66 kg General appearance: PRESENT: no acute distress, cooperative Neck exam: ABSENT: JVD Respiratory exam: PRESENT: clear to auscultation jacky, unlabored. ABSENT: tachypnea, wheezes Cardiovascular exam: PRESENT: RRR, +S1, +S2. ABSENT: tachycardia GI/Abdominal exam: PRESENT: soft. ABSENT: rebound, rigid, tenderness Extremities exam: PRESENT: other - Tenderness over the left hip from upper thigh Neurological exam: PRESENT: alert, awake, oriented to person, oriented to place, oriented to time Results Laboratory Results: 03/09/20 04:36 03/09/20 04:36 03/09/20 03/09/20 03/09/20 04:36 04:36 08:19 WBC 6.4 RBC 2.52 L Hgb 8.9 L Hct 24.8 L MCV 98 H MCH 35.3 H MCHC 35.9 RDW 13.7 Plt Count 45 L Seg Neutrophils % 78.3 H Sodium 134.7 L Potassium 3.8 Chloride 105 Carbon Dioxide 25 Anion Gap 5 BUN 21 H Creatinine 0.69 Est GFR ( Amer) > 60 Glucose 87 Calcium 7.9 L Blood Type A POSITIVE Antibody Screen NEGATIVE Impressions: Chest X-Ray 03/06/20 00:00 IMPRESSION: No active disease. Hip X-Ray 03/06/20 00:00 IMPRESSION: Intertrochanteric fracture of the left femur. Femur X-Ray 03/07/20 00:00 IMPRESSION: IMAGE(S) OBTAINED DURING PROCEDURE. Fluoroscopy 03/07/20 00:00 IMPRESSION: IMAGE(S) OBTAINED DURING PROCEDURE. Assessment and Plan - Diagnosis (1) Hip fracture, left Qualifiers: Encounter type: initial encounter Fracture type: closed Qualified Code(s): S72.002A - Fracture of unspecified part of neck of left femur, initial encounter for closed fracture Is this a current diagnosis for this admission?: Yes Plan: Secondary to mechanical fall likely from alcohol intoxication. Patient was taken to the OR by Dr. Santos on 03/07/2024 for ORIF with intramedullary nail placed. Physical and Occupational Therapy evaluated. Likely will need SNF.-Discharge planning consulted. Pain control with Toradol and morphine as needed. Neurontin as well. DVT prophylaxis with scds (2) Anemia due to blood loss, acute Is this a current diagnosis for this admission?: Yes Plan: Acute hemoglobin drop due to bleeding into the surgical site which may have been complicated by thrombocytopenia. Watch hemoglobin closely. 2 units of platelets will be given to bring platelets over 50 K. 500 cc IV normal saline. (3) Thrombocytopenia Is this a current diagnosis for this admission?: Yes Plan: Secondary to chronic alcoholism and cirrhosis. Will transfuse 2 units of platelets given hemoglobin drop, bleeding from surgical site yesterday and platelet count below 50 K. (4) Alcohol dependence Qualifiers: Substance use status: in withdrawal Complication of substance-induced condition: with delirium Qualified Code(s): F10.231 - Alcohol dependence with withdrawal delirium Is this a current diagnosis for this admission?: Yes Plan: Came in with alcohol intoxication with alcohol level of 266 and now sober. At risk of alcohol withdrawal. Will monitor closely with CIWA. CIWA scores have been 0 so we will de-escalate standing Valium. Ativan as needed based off elevated CIWA scores. (5) COPD (chronic obstructive pulmonary disease) Qualifiers: Chronic bronchitis type: unspecified Is this a current diagnosis for this admission?: Yes Plan: Albuterol, Atrovent, flutter valve, supplemental oxygen (6) Neuropathy Is this a current diagnosis for this admission?: Yes Plan: Has neuropathy in lower extremities. Will continue gabapentin at 900 mg 3 times daily. - Time Time Spent with patient: Less than 15 minutes
[2020-03-09] MEDS ORDERED: NORMAL SALINE 500 ML IV ONE (13:00)
--- NOTE | 2020-03-09 14:47 | RADIOLOGY REPORT (SQ) ---
EXAM DESCRIPTION: CHEST SINGLE VIEW IMAGES COMPLETED DATE/TIME: 03/09/2020 2:27 pm REASON FOR STUDY: SOB, Hypoxia COMPARISON: None. EXAM PARAMETERS: NUMBER OF VIEWS: One view. TECHNIQUE: Single frontal radiographic view of the chest acquired. RADIATION DOSE: NA LIMITATIONS: None. FINDINGS: LUNGS AND PLEURA: No opacities, masses or pneumothorax. No pleural effusion. MEDIASTINUM AND HILAR STRUCTURES: No masses. Contour normal. HEART AND VASCULAR STRUCTURES: Heart normal in size. Normal vasculature. BONES: No acute findings. HARDWARE: None in the chest. OTHER: No other significant finding. IMPRESSION: NO ACUTE RADIOGRAPHIC FINDING IN THE CHEST. TECHNICAL DOCUMENTATION: JOB ID: [id number] 2010 [employer]- All Rights Reserved Reading location - IP/workstation name: [email or web address]
--- NOTE | 2020-03-09 17:47 | PDOC PROGRESS REPORT ---
Subjective Progress Note for:: 03/09/20 Subjective:: Patient is still complaining of pain in his left hip. The patient did do better with therapy today and was out to a chair for several hours. Reason For Visit: LEFT HIP FRACTURE,ALCOHOL INTOX C PENDING WITHDRAW Postoperative day #2 status post cephalo-medullary nail for left hip intertrochanteric fracture Physical Exam Vital Signs: Temp Pulse Resp BP Pulse Ox 99.8 F 102 H 17 92/58 L 96 03/09/20 16:24 03/09/20 16:24 03/09/20 16:24 03/09/20 16:24 03/09/20 16:24 Intake & Output 03/08/20 03/09/20 03/10/20 06:59 06:59 06:59 Intake Total 4251.2 340 1318 Output Total 525 1175 575 Balance 3726.2 -835 743 Weight 62.4 kg 66 kg General appearance: PRESENT: no acute distress, well-developed, well-nourished Head exam: PRESENT: atraumatic, normocephalic Eye exam: PRESENT: EOMI Neck exam: PRESENT: full ROM Respiratory exam: PRESENT: unlabored Extremities exam: PRESENT: other - The surgical incision is healing well. There is no drainage or erythema. The patient is able to dorsiflex and plantarflex the left foot. Sensation is at baseline. 2+ DP and PT pulses. Psychiatric exam: PRESENT: appropriate affect, normal mood. ABSENT: homicidal ideation, suicidal ideation Results Laboratory Results: 03/09/20 04:36 03/09/20 04:36 03/09/20 03/09/20 03/09/20 04:36 04:36 08:19 WBC 6.4 RBC 2.52 L Hgb 8.9 L Hct 24.8 L MCV 98 H MCH 35.3 H MCHC 35.9 RDW 13.7 Plt Count 45 L Seg Neutrophils % 78.3 H Sodium 134.7 L Potassium 3.8 Chloride 105 Carbon Dioxide 25 Anion Gap 5 BUN 21 H Creatinine 0.69 Est GFR ( Amer) > 60 Glucose 87 Calcium 7.9 L Blood Type A POSITIVE Antibody Screen NEGATIVE Impressions: Hip X-Ray 03/06/20 00:00 IMPRESSION: Intertrochanteric fracture of the left femur. Femur X-Ray 03/07/20 00:00 IMPRESSION: IMAGE(S) OBTAINED DURING PROCEDURE. Fluoroscopy 03/07/20 00:00 IMPRESSION: IMAGE(S) OBTAINED DURING PROCEDURE. Chest X-Ray 03/09/20 00:00 IMPRESSION: NO ACUTE RADIOGRAPHIC FINDING IN THE CHEST. Assessment & Plan - Diagnosis (1) Hip fracture, left Qualifiers: Encounter type: initial encounter Fracture type: closed Qualified Code(s): S72.002A - Fracture of unspecified part of neck of left femur, initial encounter for closed fracture Is this a current diagnosis for this admission?: Yes (2) Thrombocytopenia Is this a current diagnosis for this admission?: Yes (3) Alcohol dependence Qualifiers: Substance use status: in withdrawal Complication of substance-induced condition: with delirium Qualified Code(s): F10.231 - Alcohol dependence with withdrawal delirium Is this a current diagnosis for this admission?: Yes (4) Alcohol withdrawal delirium Is this a current diagnosis for this admission?: Yes - Plan Summary Plan Summary: Postoperative day #2 status post cephalo-medullary nail placement for left hip intertrochanteric fracture The wound is healing well there is no evidence of infection. The patient may continue with physical therapy. He is weightbearing as tolerated with assist d evice. We have discussed the anticipated postoperative ambulation course. Patient continues with thrombocytopenia. All types of heparin have been discontinued. He received 2 units of platelets today. The patient is stable for discharge from an orthopedic standpoint. As long as his hemoglobin remains a stable, he may be discharged to home or a retirement facility depending on his ability to ambulate. He should follow-up in my office in 2 weeks for a wound check and staple removal.
[2020-03-09 17:52] LABS: HEMOGLOBIN 8.5 g/dL (13.5-17.0); MEAN CORPUSCULAR HEMOGLOBIN 34.8 pg (27.0-33.4); MEAN CORPUSCULAR HGB CONC 35.3 g/dL (32.0-36.0); MEAN CORPUSCULAR VOLUME 99 fl (80-97); RED BLOOD COUNT 2.44 10^6/uL (4.35-5.55); RED CELL DISTRIBUTION WIDTH 13.8 % (11.5-14.0); WHITE BLOOD COUNT 6.9 10^3/uL (4.0-10.5)
[2020-03-09] MEDS: TAMSULOSIN HCL 0.4 MG CAP.SR.24H PO SCH (17:52)
[2020-03-09 17:53] LABS: PLATELET COUNT 121 10^3/uL (150-450)
[2020-03-09] MEDS: MORPHINE SULFATE 10 MG/ML INJ IV PRN (21:30)
[2020-03-10] MEDS: GABAPENTIN 300 MG CAPSULE PO SCH ×3 (05:57→21:05)
[2020-03-10 06:41] LABS: HEMATOCRIT 24.1 % (37.9-51.0); HEMOGLOBIN 8.5 g/dL (13.5-17.0); MEAN CORPUSCULAR HGB CONC 35.4 g/dL (32.0-36.0); MEAN CORPUSCULAR VOLUME 99 fl (80-97); PLATELET COUNT 112 10^3/uL (150-450); RED BLOOD COUNT 2.43 10^6/uL (4.35-5.55); WHITE BLOOD COUNT 5.3 10^3/uL (4.0-10.5)
[2020-03-10] MEDS: DIAZEPAM 5 MG TABLET PO SCH (09:16)
[2020-03-10] MEDS: DOCUSATE SODIUM 100 MG CAPSULE PO SCH ×2 (09:16→17:27)
[2020-03-10] MEDS: FINASTERIDE 5 MG TABLET PO SCH (09:16)
[2020-03-10] MEDS: THIAMINE HCL 100 MG TABLET PO SCH (09:16)
[2020-03-10] MEDS: FAMOTIDINE 20 MG TABLET PO SCH ×2 (09:17→21:05)
--- NOTE | 2020-03-10 10:14 | PDOC PROGRESS REPORT ---
Subjective Progress Note for:: 03/10/20 Subjective:: Patient doing well today. Has no significant complaints besides a little fatigue. Denies any shortness of breath. Endorses chronic cough. Reason For Visit: LEFT HIP FRACTURE,ALCOHOL INTOX C PENDING WITHDRAW Physical Exam Vital Signs: Temp Pulse Resp BP Pulse Ox 98.6 F 83 14 111/62 99 03/10/20 07:32 03/10/20 09:00 03/10/20 09:00 03/10/20 07:32 03/10/20 09:00 Intake & Output 03/09/20 03/10/20 03/11/20 06:59 06:59 06:59 Intake Total 340 2178 Output Total 1175 1025 Balance -835 1153 Weight 66 kg 66.9 kg General appearance: PRESENT: no acute distress, cooperative Respiratory exam: PRESENT: symmetrical, unlabored, wheezes - Mild. ABSENT: tachypnea Cardiovascular exam: PRESENT: RRR, +S1, +S2. ABSENT: tachycardia GI/Abdominal exam: PRESENT: soft. ABSENT: rebound, rigid, tenderness Extremities exam: PRESENT: other - Left lower extremity wound clean dressing without any evidence of bleeding. Mild tenderness. Neurological exam: PRESENT: alert, awake, oriented to person, oriented to place, oriented to time, oriented to situation Psychiatric exam: ABSENT: agitated, anxious Results Laboratory Results: 03/10/20 05:35 03/09/20 04:36 03/09/20 03/09/20 03/10/20 08:19 17:40 05:35 WBC 6.9 5.3 RBC 2.44 L 2.43 L Hgb 8.5 L 8.5 L Hct 24.0 L 24.1 L MCV 99 H 99 H MCH 34.8 H 35.0 H MCHC 35.3 35.4 RDW 13.8 14.0 Plt Count 121 L D 112 L Blood Type A POSITIVE Antibody Screen NEGATIVE Impressions: Hip X-Ray 03/06/20 00:00 IMPRESSION: Intertrochanteric fracture of the left femur. Femur X-Ray 03/07/20 00:00 IMPRESSION: IMAGE(S) OBTAINED DURING PROCEDURE. Fluoroscopy 03/07/20 00:00 IMPRESSION: IMAGE(S) OBTAINED DURING PROCEDURE. Chest X-Ray 03/09/20 00:00 IMPRESSION: NO ACUTE RADIOGRAPHIC FINDING IN THE CHEST. Assessment and Plan - Diagnosis (1) Hip fracture, left Qualifiers: Encounter type: initial encounter Fracture type: closed Qualified Code(s): S72.002A - Fracture of unspecified part of neck of left femur, initial encounter for closed fracture Is this a current diagnosis for this admission?: Yes Plan: Secondary to mechanical fall likely from alcohol intoxication. Patient was taken to the OR by Dr. Santos on 03/07/2024 for ORIF with intramedullary nail placed. Physical and Occupational Therapy evaluated. Likely will need SNF.-Discharge planning consulted. Pain control with Toradol. Neurontin as well. Morphine de-escalated will be given only prior to PT. DVT prophylaxis with scds Awaiting COVID-19 results for placement at rehab (2) Anemia due to blood loss, acute Is this a current diagnosis for this admission?: Yes Plan: Acute hemoglobin drop due to bleeding into the surgical site which may have been complicated by thrombocytopenia. Hemoglobin now holding steady after improvement of thrombocytopenia. (3) Thrombocytopenia Is this a current diagnosis for this admission?: Yes Plan: Secondary to chronic alcoholism and cirrhosis. Received 2 units of platelets given platelet <50k, hemoglobin drop yesterday & bleeding from surgical site the day prior. (4) Alcohol dependence Qualifiers: Substance use status: in withdrawal Complication of substance-induced condition: with delirium Qualified Code(s): F10.231 - Alcohol dependence with withdrawal delirium Is this a current diagnosis for this admission?: Yes Plan: Came in with alcohol intoxication with alcohol level of 266 and now sober. Continue thiamine and folic acid supplements. At risk of alcohol withdrawal. Will monitor closely with CIWA. CIWA scores have been 0 so far so we will discontinue standing Valium we will de-escalate standing Valium. Ativan prn for elev CIWA only. (5) COPD (chronic obstructive pulmonary disease) Qualifiers: Chronic bronchitis type: unspecified Is this a current diagnosis for this admission?: Yes Plan: Albuterol, Atrovent, flutter valve, supplemental oxygen (6) Neuropathy Is this a current diagnosis for this admission?: Yes - Time Time Spent with patient: Less than 15 minutes
[2020-03-10] MEDS: MORPHINE SULFATE 10 MG/ML INJ IV PRN (12:52)
[2020-03-10] MEDS: TAMSULOSIN HCL 0.4 MG CAP.SR.24H PO SCH (17:27)
[2020-03-10] MEDS: KETOROLAC TROMETHAMINE INJ/PF 30 MG/1 ML SDV IV PRN (18:42)
[2020-03-11] MEDS: KETOROLAC TROMETHAMINE INJ/PF 30 MG/1 ML SDV IV PRN ×2 (04:51→21:35)
[2020-03-11] MEDS: GABAPENTIN 300 MG CAPSULE PO SCH ×3 (05:03→21:39)
[2020-03-11 05:51] LABS: HEMATOCRIT 24.8 % (37.9-51.0); HEMOGLOBIN 8.9 g/dL (13.5-17.0); MEAN CORPUSCULAR HEMOGLOBIN 35.7 pg (27.0-33.4); MEAN CORPUSCULAR HGB CONC 36.1 g/dL (32.0-36.0); MEAN CORPUSCULAR VOLUME 99 fl (80-97); PLATELET COUNT 117 10^3/uL (150-450); RED CELL DISTRIBUTION WIDTH 13.8 % (11.5-14.0); WHITE BLOOD COUNT 5.2 10^3/uL (4.0-10.5)
[2020-03-11] MEDS: DOCUSATE SODIUM 100 MG CAPSULE PO SCH ×2 (09:19→18:37)
[2020-03-11] MEDS: THIAMINE HCL 100 MG TABLET PO SCH (09:19)
[2020-03-11] MEDS: FINASTERIDE 5 MG TABLET PO SCH (09:19)
[2020-03-11] MEDS: FAMOTIDINE 20 MG TABLET PO SCH ×2 (09:19→21:39)
[2020-03-11] MEDS: FOLIC ACID 1 MG TABLET PO SCH (09:20)
--- NOTE | 2020-03-11 12:01 | PDOC PROGRESS REPORT ---
Subjective Progress Note for:: 03/11/20 Reason For Visit: LEFT HIP FRACTURE,ALCOHOL INTOX C PENDING WITHDRAW 03/11/2020 Fall with left hip fracture, thrombocytopenia, alcohol abuse Physical Exam Vital Signs: Temp Pulse Resp BP Pulse Ox 97.9 F 86 16 127/67 H 99 03/11/20 08:29 03/11/20 08:29 03/11/20 08:29 03/11/20 08:29 03/11/20 08:29 Intake & Output 03/10/20 03/11/20 03/12/20 06:59 06:59 06:59 Intake Total 2178 1020 Output Total 1025 675 Balance 1153 345 Weight 66.9 kg 65.8 kg General appearance: PRESENT: no acute distress, other - Skin to go home or to rehab Respiratory exam: PRESENT: clear to auscultation jacky. ABSENT: rales, rhonchi, wheezes Cardiovascular exam: PRESENT: RRR. ABSENT: diastolic murmur, rubs, systolic murmur Extremities exam: PRESENT: other - Deferred to Ortho Neurological exam: PRESENT: alert, awake, oriented to person, oriented to place, oriented to time, oriented to situation, CN II-XII grossly intact. ABSENT: motor sensory deficit Psychiatric exam: PRESENT: appropriate affect, normal mood. ABSENT: homicidal ideation, suicidal ideation Results Laboratory Results: 03/11/20 04:30 03/09/20 04:36 03/11/20 04:30 WBC 5.2 RBC 2.50 L Hgb 8.9 L Hct 24.8 L MCV 99 H MCH 35.7 H MCHC 36.1 H RDW 13.8 Plt Count 117 L Impressions: Hip X-Ray 03/06/20 00:00 IMPRESSION: Intertrochanteric fracture of the left femur. Femur X-Ray 03/07/20 00:00 IMPRESSION: IMAGE(S) OBTAINED DURING PROCEDURE. Fluoroscopy 03/07/20 00:00 IMPRESSION: IMAGE(S) OBTAINED DURING PROCEDURE. Chest X-Ray 03/09/20 00:00 IMPRESSION: NO ACUTE RADIOGRAPHIC FINDING IN THE CHEST. Assessment and Plan - Diagnosis (1) Alcohol abuse Is this a current diagnosis for this admission?: Yes (2) Anemia due to blood loss, acute Is this a current diagnosis for this admission?: Yes (3) Hip fracture, left Qualifiers: Encounter type: initial encounter Fracture type: closed Qualified Code(s): S72.002A - Fracture of unspecified part of neck of left femur, initial encounter for closed fracture Is this a current diagnosis for this admission?: Yes (4) Neuropathy Is this a current diagnosis for this admission?: Yes (5) Thrombocytopenia Is this a current diagnosis for this admission?: Yes (6) COPD (chronic obstructive pulmonary disease) Qualifiers: Chronic bronchitis type: unspecified Is this a current diagnosis for this admission?: Yes - Plan Summary Summary: 03/11/2020 Vital signs are stable temperature 98.3 pulse 74 blood pressure 145/64 O2 sat 100% on room air Patient is asking to be discharged she says that yesterday he took 44 steps Labs appear stable hemoglobin 8.9 platelets up to 117,000 Electrolytes are grossly normal Waiting on bed acceptance from [facility] COVID test is pending. Patient will be stable for discharge once COVID test results return - Time Time Spent with patient: 25-34 minutes
[2020-03-11] MEDS: MORPHINE SULFATE 10 MG/ML INJ IV PRN (12:18)
[2020-03-11] MEDS: TAMSULOSIN HCL 0.4 MG CAP.SR.24H PO SCH (18:37)
[2020-03-12] MEDS: GABAPENTIN 300 MG CAPSULE PO SCH ×3 (06:07→21:35)
[2020-03-12] MEDS: ACETAMINOPHEN 325 MG TABLET PO PRN ×3 (06:16→21:35)
[2020-03-12] MEDS: FINASTERIDE 5 MG TABLET PO SCH (10:08)
[2020-03-12] MEDS: FAMOTIDINE 20 MG TABLET PO SCH ×2 (10:08→21:35)
[2020-03-12] MEDS: DOCUSATE SODIUM 100 MG CAPSULE PO SCH ×2 (10:08→17:10)
[2020-03-12] MEDS: THIAMINE HCL 100 MG TABLET PO SCH (10:08)
[2020-03-12] MEDS: FOLIC ACID 1 MG TABLET PO SCH (10:08)
[2020-03-12] MEDS: MORPHINE SULFATE 10 MG/ML INJ IV PRN (10:48)
--- NOTE | 2020-03-12 11:16 | PDOC PROGRESS REPORT ---
Subjective Progress Note for:: 03/12/20 Reason For Visit: LEFT HIP FRACTURE,ALCOHOL INTOX C PENDING WITHDRAW 03/12/2020 Fractured left hip, alcohol abuse, thrombocytopenia, EMEA due to blood loss, neuropathy, COPD Physical Exam Vital Signs: Temp Pulse Resp BP Pulse Ox 97.8 F 81 18 147/75 H 98 03/12/20 08:03 03/12/20 08:03 03/12/20 08:03 03/12/20 08:03 03/12/20 08:03 Intake & Output 03/11/20 03/12/20 03/13/20 06:59 06:59 06:59 Intake Total 1020 2075 Output Total 675 1600 Balance 345 475 Weight 65.8 kg 65.8 kg General appearance: PRESENT: no acute distress Respiratory exam: PRESENT: clear to auscultation jacky. ABSENT: rales, rhonchi, wheezes Cardiovascular exam: PRESENT: RRR. ABSENT: diastolic murmur, rubs, systolic murmur Neurological exam: PRESENT: alert, awake, oriented to person, oriented to place, oriented to time, oriented to situation, CN II-XII grossly intact. ABSENT: motor sensory deficit Psychiatric exam: PRESENT: appropriate affect, normal mood. ABSENT: homicidal ideation, suicidal ideation Results Laboratory Results: 03/11/20 04:30 03/09/20 04:36 Impressions: Hip X-Ray 03/06/20 00:00 IMPRESSION: Intertrochanteric fracture of the left femur. Femur X-Ray 03/07/20 00:00 IMPRESSION: IMAGE(S) OBTAINED DURING PROCEDURE. Fluoroscopy 03/07/20 00:00 IMPRESSION: IMAGE(S) OBTAINED DURING PROCEDURE. Chest X-Ray 03/09/20 00:00 IMPRESSION: NO ACUTE RADIOGRAPHIC FINDING IN THE CHEST. Assessment and Plan - Diagnosis (1) Alcohol abuse Is this a current diagnosis for this admission?: Yes (2) Anemia due to blood loss, acute Is this a current diagnosis for this admission?: Yes (3) Hip fracture, left Qualifiers: Encounter type: initial encounter Fracture type: closed Qualified Code(s): S72.002A - Fracture of unspecified part of neck of left femur, initial encounter for closed fracture Is this a current diagnosis for this admission?: Yes (4) Neuropathy Is this a current diagnosis for this admission?: Yes (5) Thrombocytopenia Is this a current diagnosis for this admission?: Yes (6) COPD (chronic obstructive pulmonary disease) Qualifiers: Chronic bronchitis type: unspecified Is this a current diagnosis for this admission?: Yes - Plan Summary Summary: 03/11/2020 Vital signs are stable temperature 98.3 pulse 74 blood pressure 145/64 O2 sat 100% on room air Patient is asking to be discharged she says that yesterday he took 44 steps Labs appear stable hemoglobin 8.9 platelets up to 117,000 Electrolytes are grossly normal Waiting on bed acceptance from [facility] COVID test is pending. Patient will be stable for discharge once COVID test results return 03/12/2020 Unfortunately patient has been turned down now from [facility] as well as [facility]. Pending is the [facility] well as [facility] Patient is medically stable for discharge CBC is stable COVID 19 is negative Vital signs temperature 98.5 pulse 76 blood pressure 140/65 O2 sats 96% on room air Orthopedics has signed off the case, need to be seen in 2 weeks for a wound check and staple removal. Weightbearing as tolerated with assist device - Time Time Spent with patient: 15-24 minutes
[2020-03-12] MEDS: TAMSULOSIN HCL 0.4 MG CAP.SR.24H PO SCH (17:10)
--- NOTE | 2020-03-12 17:26 | PDOC TRANSFER SUMMARY ---
Impression - Admit/DC Date/PCP Admission Date/Primary Care Provider: 03/06/20 23:39 SARA YAÑEZ DO Discharge Date: 03/13/20 - Discharge Diagnosis (1) Alcohol abuse Is this a current diagnosis for this admission?: Yes (2) Anemia due to blood loss, acute Is this a current diagnosis for this admission?: Yes (3) Hip fracture, left Is this a current diagnosis for this admission?: Yes (4) Neuropathy Is this a current diagnosis for this admission?: Yes (5) Thrombocytopenia Is this a current diagnosis for this admission?: Yes (6) COPD (chronic obstructive pulmonary disease) Is this a current diagnosis for this admission?: Yes - Assessment Summary: 03/11/2020 Vital signs are stable temperature 98.3 pulse 74 blood pressure 145/64 O2 sat 100% on room air Patient is asking to be discharged she says that yesterday he took 44 steps Labs appear stable hemoglobin 8.9 platelets up to 117,000 Electrolytes are grossly normal Waiting on bed acceptance from [facility] COVID test is pending. Patient will be stable for discharge once COVID test results return 03/12/2020 Unfortunately patient has been turned down now from [facility] as well as [facility]. Pending is the [facility] well as [facility] Patient is medically stable for discharge CBC is stable COVID 19 is negative Vital signs temperature 98.5 pulse 76 blood pressure 140/65 O2 sats 96% on room air Orthopedics has signed off the case, need to be seen in 2 weeks for a wound check and staple removal. Weightbearing as tolerated with assist device Patient continues to work with physical therapy and walked 75 feet yesterday, with assistance 03/13/2020 Patient is medically stable for discharge. Patient needs to follow-up with orthopedics approximately March 24 Labs appear to be stable white count 5.2, hemoglobin 8.9, hematocrit 24.8, platelets 117,000 His recent chest x-ray on 03/09 shows no acute radiographic findings in the chest As above patient is ambulating with a walker or assistance Admitting diagnosis is left hip fracture, thrombocytopenia, alcohol dependence. - Additional Information Resuscitation Status: Full Code Discharge Diet: As Tolerated Discharge Activity: Activity As Tolerated, No Lifting Over 10 Pounds, Slowly Increase Activity, No tub bath Referrals: SARA YAÑEZ DO [Primary Care Provider] - Follow up as needed Home Medications: Finasteride [Proscar 5 mg Tablet] 5 mg PO DAILY 03/23/18 Aspirin [Aspirin 325 mg Tablet] 325 mg PO DAILY 03/07/20 Gabapentin [Neurontin 300 mg Capsule] 1,200 mg PO QID 03/07/20 L.acidoph,Paracasei, B.lactis [Probiotic] 1 tab PO DAILY 03/07/20 Vit A/Vit C/Vit E/Zinc/Copper [Preservision Areds Softgel] 2 cap PO DAILY 03/07/20 History of Present Illiness History of Present Illness: JEANNINE LAZO JR is a 74 year old male Physical Exam Vital Signs: Temp Pulse Resp BP Pulse Ox 98.8 F 82 18 138/79 H 100 03/12/20 17:09 03/12/20 17:09 03/12/20 17:09 03/12/20 17:09 03/12/20 17:09 Intake & Output 03/11/20 03/12/20 03/13/20 06:59 06:59 06:59 Intake Total 1020 2075 480 Output Total 675 1600 Balance 345 475 480 Weight 65.8 kg 65.8 kg Results Laboratory Results: WBC 5.2 10^3/uL (4.0-10.5) 03/11/20 04:30 RBC 2.50 10^6/uL (4.35-5.55) L 03/11/20 04:30 Hgb 8.9 g/dL (13.5-17.0) L 03/11/20 04:30 Hct 24.8 % (37.9-51.0) L 03/11/20 04:30 MCV 99 fl (80-97) H 03/11/20 04:30 MCH 35.7 pg (27.0-33.4) H 03/11/20 04:30 MCHC 36.1 g/dL (32.0-36.0) H 03/11/20 04:30 RDW 13.8 % (11.5-14.0) 03/11/20 04:30 Plt Count 117 10^3/uL (150-450) L 03/11/20 04:30 Lymph % (Auto) 12.4 % (13-45) L 03/09/20 04:36 [place] % (Auto) 8.8 % (3-13) 03/09/20 04:36 Eos % (Auto) 0.2 % (0-6) 03/09/20 04:36 Baso % (Auto) 0.3 % (0-2) 03/09/20 04:36 Absolute Neuts (auto) 5.0 10^3/uL (1.7-8.2) 03/09/20 04:36 Absolute Lymphs (auto) 0.8 10^3/uL (0.5-4.7) 03/09/20 04:36 Absolute Monos (auto) 0.6 10^3/uL (0.1-1.4) 03/09/20 04:36 Absolute Eos (auto) 0.0 10^3/uL (0.0-0.6) 03/09/20 04:36 Absolute Basos (auto) 0.0 10^3/uL (0.0-0.2) 03/09/20 04:36 Total Counted 100 03/08/20 05:58 Seg Neutrophils % 78.3 % (42-78) H 03/09/20 04:36 Seg Neuts % (Manual) 91 % (42-78) H 03/08/20 05:58 Lymphocytes % (Manual) 5 % (13-45) L 03/08/20 05:58 Monocytes % (Manual) 4 % (3-13) 03/08/20 05:58 Eosinophils % (Manual) 0 % (0-6) 03/08/20 05:58 Basophils % (Manual) 0 % (0-2) 03/08/20 05:58 Abs Neuts (Manual) 6.6 10^3/uL (1.7-8.2) 03/08/20 05:58 Abs Lymphs (Manual) 0.4 10^3/uL (0.5-4.7) L 03/08/20 05:58 Abs Monocytes (Manual) 0.3 10^3/uL (0.1-1.4) 03/08/20 05:58 Absolute Eos (Manual) 0.0 10^3/uL (0.0-0.6) 03/08/20 05:58 Abs Basophils (Manual) 0.0 10^3/uL (0.0-0.2) 03/08/20 05:58 Platelet Estimate Cancelled 03/06/20 21:15 Platelet Comment DECREASED 03/08/20 05:58 RBC Morph Comment NORMO-CYTIC/CHROMIC 03/08/20 05:58 PT 14.1 SEC (11.4-15.4) 03/06/20 21:15 INR 1.09 03/06/20 21:15 APTT 33.7 SEC (23.5-35.8) 03/06/20 21:15 Sodium 134.7 mmol/L (137-145) L 03/09/20 04:36 Potassium 3.8 mmol/L (3.6-5.0) 03/09/20 04:36 Chloride 105 mmol/L (98-107) 03/09/20 04:36 Carbon Dioxide 25 mmol/L (22-30) 03/09/20 04:36 Anion Gap 5 (5-19) 03/09/20 04:36 BUN 21 mg/dL (7-20) H 03/09/20 04:36 Creatinine 0.69 mg/dL (0.52-1.25) 03/09/20 04:36 Est GFR ( Amer) > 60 (>60) 03/09/20 04:36 Est GFR (MDRD) Non-Af > 60 (>60) 03/09/20 04:36 Glucose 87 mg/dL (75-110) 03/09/20 04:36 Calcium 7.9 mg/dL (8.4-10.2) L 03/09/20 04:36 Magnesium 1.7 mg/dL (1.6-2.3) 03/06/20 21:15 Total Bilirubin 0.9 mg/dL (0.2-1.3) 03/06/20 21:15 Direct Bilirubin 0.3 mg/dL (0.0-0.4) 03/06/20 21:15 Neonat Total Bilirubin Not Reportable 03/06/20 21:15 Neonat Direct Bilirubin Not Reportable 03/06/20 21:15 Neonat Indirect Bili Not Reportable 03/06/20 21:15 AST 62 U/L (17-59) H 03/06/20 21:15 ALT 31 U/L (<50) 03/06/20 21:15 Alkaline Phosphatase 215 U/L (38-126) H 03/06/20 21:15 Total Protein 7.4 g/dL (6.3-8.2) 03/06/20 21:15 Albumin 3.7 g/dL (3.5-5.0) 03/06/20 21:15 Urine Opiates Screen NEGATIVE 03/07/20 01:33 Urine Methadone Screen NEGATIVE 03/07/20 01:33 Ur Barbiturates Screen NEGATIVE 03/07/20 01:33 Ur Phencyclidine Scrn NEGATIVE 03/07/20 01:33 Ur Amphetamines Screen NEGATIVE 03/07/20 01:33 U Benzodiazepines Scrn NEGATIVE 03/07/20 01:33 Urine Cocaine Screen NEGATIVE 03/07/20 01:33 U Marijuana (THC) Screen NEGATIVE 03/07/20 01:33 Serum Alcohol 266 mg/dL (NONE DETECTED) 03/06/20 21:15 COVID-19 Source NASOPHARYNGEAL 03/09/20 18:00 COVID-19 (ALFREDITO) NOT DETECTED 03/09/20 18:00 Slides for Path Review Cancelled 03/06/20 21:15 Blood Type A POSITIVE 03/09/20 08:19 Antibody Screen NEGATIVE 03/09/20 08:19 Impressions: Chest X-Ray 03/06/20 00:00 IMPRESSION: No active disease. Hip X-Ray 03/06/20 00:00 IMPRESSION: Intertrochanteric fracture of the left femur. Femur X-Ray 03/07/20 00:00 IMPRESSION: IMAGE(S) OBTAINED DURING PROCEDURE. Fluoroscopy 03/07/20 00:00 IMPRESSION: IMAGE(S) OBTAINED DURING PROCEDURE. Chest X-Ray 03/09/20 00:00 IMPRESSION: NO ACUTE RADIOGRAPHIC FINDING IN THE CHEST. Stroke Is this a Stroke Patient?: No Acute Heart Failure - Is this a Heart Failure Patient?: No
[2020-03-13] MEDS: GABAPENTIN 300 MG CAPSULE PO SCH ×2 (05:38→13:44)
[2020-03-13] MEDS: ACETAMINOPHEN 325 MG TABLET PO PRN ×2 (05:39→09:47)
[2020-03-13] MEDS: FOLIC ACID 1 MG TABLET PO SCH (09:43)
[2020-03-13] MEDS: FAMOTIDINE 20 MG TABLET PO SCH (09:43)
[2020-03-13] MEDS: FINASTERIDE 5 MG TABLET PO SCH (09:43)
[2020-03-13] MEDS: DOCUSATE SODIUM 100 MG CAPSULE PO SCH (09:43)
[2020-03-13] MEDS: THIAMINE HCL 100 MG TABLET PO SCH (09:43)
[2020-03-13 13:31] VITALS: BP 109/58
[2020-03-13] MEDS: MORPHINE SULFATE 10 MG/ML INJ IV PRN (13:44)
== END 2020-03-13 15:37 | disposition home health service (06) | DRG 481 ==
LOC: ER 20:08 → EH 23:39 → 3W 03-07 01:40
PROVIDERS: ADMIT Internal Medicine; ATTEND Physician Assistant
PROC: 0QS736Z Reposition Left Upper Femur with Intramedullary Internal Fixation Device, Percutaneous Approach (ICD-10-PCS; principal; 2020-03-07 11:45)
PROC: 30233R1 Transfusion of Nonautologous Platelets into Peripheral Vein, Percutaneous Approach (ICD-10-PCS; 2020-03-09)
DX: S72.142A Displaced intertrochanteric fracture of left femur, initial encounter for closed fracture (principal); D62 Acute posthemorrhagic anemia; F10.231 Alcohol dependence with withdrawal delirium; Y90.8 Blood alcohol level of 240 mg/100 ml or more; J44.9 Chronic obstructive pulmonary disease, unspecified; G62.9 Polyneuropathy, unspecified; F10.229 Alcohol dependence with intoxication, unspecified; Y92.009 Unspecified place in unspecified non-institutional (private) residence as the place of occurrence of the external cause; I10 Essential (primary) hypertension; K21.9 Gastro-esophageal reflux disease without esophagitis; F32.9 Major depressive disorder, single episode, unspecified; F17.210 Nicotine dependence, cigarettes, uncomplicated; N40.0 Benign prostatic hyperplasia without lower urinary tract symptoms; W01.0XXA Fall on same level from slipping, tripping and stumbling without subsequent striking against object, initial encounter; D69.59 Other secondary thrombocytopenia; K70.30 Alcoholic cirrhosis of liver without ascites; Z82.49 Family history of ischemic heart disease and other diseases of the circulatory system; Z79.899 Other long term (current) drug therapy; Z75.1 Person awaiting admission to adequate facility elsewhere
CPT/HCPCS: 01230; 36415; 36430; 71045; 80048; 80053; 80307; 83735; 85025; 85027; 85610; 85730; 86850; 86900; 86901; 87635; 93005; 93010; 94799; 96374; 99285; C1713; C1769; J0690; J1100; J1644; J1885; J2060; J2250; J2270; J2405; J2704; J3010; J3411; J3490; J7030; J7040; J7050; J7060; J7620; P9035

== ENCOUNTER 2020-03-28 17:51 | Emergency (ER) | payer MEDICARE, OTHER ==
--- NOTE | 2020-03-28 18:30 | RADIOLOGY REPORT (SQ) ---
EXAM DESCRIPTION: CT HEAD WITHOUT IMAGES COMPLETED DATE/TIME: 03/28/2020 6:19 pm REASON FOR STUDY: fall COMPARISON: 07/09/2018 TECHNIQUE: Axial images acquired through the brain without intravenous contrast. Images reviewed wi th bone, brain and subdural windows. Additional sagittal and coronal reconstructions were generated. Images stored on PACS. All CT scanners at this facility use dose modulation, iterative reconstruction, and/or weight based d osing when appropriate to reduce radiation dose to as low as reasonably achievable (ALARA). [facility]: Dose Right [facility]: CareDose [facility]: Dose Right [facility]: Teradose 4D [facility]: [employer] RADIATION DOSE: CT Rad equipment meets quality standard of care and radiation dose reduction techniq ues were employed. CTDIvol: 53.2 mGy. DLP: 991 mGy-cm. mGy. LIMITATIONS: None. FINDINGS: VENTRICLES: Mildly prominent ventricles secondary to involutional atrophy. CEREBRUM: No masses. No hemorrhage. No midline shift. No evidence for acute infarction. Normal gra y/white matter differentiation. No areas of low density in the white matter. CEREBELLUM: No masses. No hemorrhage. No alteration of density. No evidence for acute infarction. EXTRAAXIAL SPACES: No fluid collections. No masses. ORBITS AND GLOBE: No intra- or extraconal masses. Normal contour of globe without masses. CALVARIUM: No fracture. PARANASAL SINUSES: Complete opacification of the right maxillary sinus. SOFT TISSUES: No mass or hematoma. OTHER: No other significant finding. IMPRESSION: Right maxillary sinus disease. Mild involutional changes. No acute intracranial imagin g finding. EVIDENCE OF ACUTE STROKE: NO. COMMENT: Quality ID # [id number]: Final reports with documentation of one or more dose reduction techniques (e.g., Automated exposure control, adjustment of the mA and/or kV according to patient size, use of iterative reconstruction technique) TECHNICAL DOCUMENTATION: JOB ID: [id number] 2010 [employer]- All Rights Reserved Reading location - IP/workstation name: [email or web address]
--- NOTE | 2020-03-28 18:35 | RADIOLOGY REPORT (SQ) ---
EXAM DESCRIPTION: CT LUMBAR SPINE WITHOUT IMAGES COMPLETED DATE/TIME: 03/28/2020 6:19 pm REASON FOR STUDY: fall COMPARISON: None. TECHNIQUE: Axial images acquired through the lumbar spine without intravenous contrast. Images revi ewed with lung, soft tissue and bone windows. Reconstructed coronal and sagittal MPR images reviewed . All images stored on PACS. All CT scanners at this facility use dose modulation, iterative reconstruction, and/or weight based d osing when appropriate to reduce radiation dose to as low as reasonably achievable (ALARA). [facility]: Dose Right [facility]: CareDose [facility]: Dose Right [facility]: Teradose 4D [facility]: AlloCure RADIATION DOSE: mGy. LIMITATIONS: None. FINDINGS: SEGMENTATION: Normal. No transitional anatomy. ALIGNMENT: Normal. VERTEBRAL BODIES: Kyphoplasty changes at L1, L4, and L5. No acute fracture. Osteopenia is suggested . DISCS: Circumferential disc bulge is from L2-L5. No significant central canal or foraminal stenosis. PEDICLES, TRANSVERSE PROCESSES: No fractures. No dislocation. No acute findings. FACETS, POSTERIOR ELEMENTS: No fractures. No dislocation. No spinal stenosis. HARDWARE: None in the spine. VISUALIZED RIBS: No fractures. SOFT TISSUES: No significant or acute finding in adjacent soft tissues. OTHER: No other significant finding. IMPRESSION: Prior kyphoplasty changes. No acute fracture. Osteopenia. Disc bulges as described. No significant stenoses. TECHNICAL DOCUMENTATION: JOB ID: [id number] Quality ID # [id number]: Final reports with documentation of one or more dose reduction techniques (e.g., Au tomated exposure control, adjustment of the mA and/or kV according to patient size, use of iterative reconstruction technique) 2010 [employer]- All Rights Reserved Reading location - IP/workstation name: [email or web address]
[2020-03-28 19:02] LABS: ABSOLUTE BASOPHILS # (AUTO) 0.1 10^3/uL (0.0-0.2); ABSOLUTE EOSINOPHILS # (AUTO) 0.2 10^3/uL (0.0-0.6); ABSOLUTE MONOCYTES (AUTO) 0.6 10^3/uL (0.1-1.4); ABSOLUTE NEUT (AUTO) 5.2 10^3/uL (1.7-8.2); BASOPHILS % (AUTO) 1.4 % (0-2); EOSINOPHILS % (AUTO) 2.9 % (0-6); HEMATOCRIT 38.4 % (37.9-51.0); HEMOGLOBIN 13.2 g/dL (13.5-17.0); LYMPHOCYTES % (AUTO) 13.5 % (13-45); MEAN CORPUSCULAR HEMOGLOBIN 34.5 pg (27.0-33.4); MEAN CORPUSCULAR HGB CONC 34.4 g/dL (32.0-36.0); MEAN CORPUSCULAR VOLUME 100 fl (80-97); MONOCYTES % (AUTO) 8.6 % (3-13); PLATELET COUNT 170 10^3/uL (150-450); RED BLOOD COUNT 3.83 10^6/uL (4.35-5.55); RED CELL DISTRIBUTION WIDTH 14.5 % (11.5-14.0); SEGMENTED NEUTROPHILS % (AUTO) 73.6 % (42-78); TOTAL CELLS COUNTED % (AUTO) 100 %; WHITE BLOOD COUNT 7.1 10^3/uL (4.0-10.5)
--- NOTE | 2020-03-28 19:05 | RADIOLOGY REPORT (SQ) ---
EXAM DESCRIPTION: HIP LEFT AP/LATERAL IMAGES COMPLETED DATE/TIME: 03/28/2020 6:46 pm REASON FOR STUDY: fall; deformity COMPARISON: 03/06/2020 NUMBER OF VIEWS: Two views. TECHNIQUE: AP pelvis and additional frog-leg view of the left hip. LIMITATIONS: None. FINDINGS: MINERALIZATION: Normal. LEFT HIP: No acute fracture dislocation. Internal fixation of prior intertrochanteric fracture. RIGHT HIP: No fracture or dislocation. PUBIS AND ISCHIUM: No fracture. PELVIS: No fracture. SACRUM: No fracture or dislocation. No worrisome bone lesions. LOWER LUMBAR SPINE: Kyphoplasty changes in the lower lumbar spine. SOFT TISSUES: No findings. OTHER: No other significant finding. IMPRESSION: Findings as described. No acute finding is appreciated. TECHNICAL DOCUMENTATION: JOB ID: [id number] 2010 [employer]- All Rights Reserved Reading location - IP/workstation name: [email or web address]
[2020-03-28] MEDS ORDERED: OXYCODONE-ACETAMINOPHEN 5-325 MG TABLET PO ONE (19:06)
--- NOTE | 2020-03-28 19:07 | ER Document Report ---
ED Hip Pain/Injury - General Chief Complaint: Hip Injury Stated Complaint: FALL - HIP PAIN Time Seen by Provider: 03/28/20 18:41 Primary Care Provider: DAVION SANTIAGO MD [ACTIVE PROVISIONAL STAFF] - 03/31/20 SARA YAÑEZ DO [Primary Care Provider] - Follow up as needed Mode of Arrival: Medic Information source: Patient Notes: 74-year-old male presented to ED for complaint of left hip pain. He states he was at the [employer] walking in the parking lot with his walker when he hit something on the pavement causing him to fall. He states he hit his head with no abrasion or bruises but he did injure his left hip with external rotation shortening of the leg. He did recently 2 weeks ago have a hip replacement. He states the pain was such that he could not move his foot or leg. Respirations were regular nonlabored speaking in full sentences. He states normally he does walk with a walker. TRAVEL OUTSIDE OF THE [place] IN LAST 30 DAYS: No - HPI Patient complains to provider of: Injury, Pain, Hip Occurred: This evening Where: Outdoors, Public place Onset/Duration: Persistent Quality of pain: Achy, Sharp, Throbbing Severity: Severe Pain Level: 5 Context: Fell/tripped Symptoms prior to fall: None Symptoms since fall: None Skin Color: Normal Rotation of extremity: Outward Pain with palpation of the pelvis: Yes Associated Symptoms: None Other injuries: Head - Related Data Allergies/Adverse Reactions: No Known Allergies Allergy (Verified 03/28/20 18:06) Past Medical History - General Information source: Patient - Social History Smoking Status: Current Every Day Smoker Cigarette use (# per day): Yes Smoking Education Provided: Yes Frequency of alcohol use: None Drug Abuse: None Lives with: Family Family History: COPD, Hypertension Patient has homicidal ideation: No - Past Medical History Cardiac Medical History: Reports: Hx Hypertension Pulmonary Medical History: Reports: Hx COPD EENT Medical History: Reports: None Neurological Medical History: Reports: None Endocrine Medical History: Reports: None Renal/ Medical History: Reports: None Malignancy Medical History: Reports None GI Medical History: Reports: Hx Cirrhosis, Hx Gastroesophageal Reflux Disease Musculoskeletal Medical History: Reports None Skin Medical History: Reports None Psychiatric Medical History: Reports: Hx Depression Traumatic Medical History: Reports: Hx Fractures Infectious Medical History: Reports: None Past Surgical History: Reports: Hx Orthopedic Surgery - Back Sx x2,left hip - Immunizations Hx Diphtheria, Pertussis, Tetanus Vaccination: Yes Hx Pneumococcal Vaccination: 11/14/18 Review of Systems - Review of Systems Constitutional: No symptoms reported EENT: No symptoms reported Cardiovascular: No symptoms reported Respiratory: No symptoms reported Gastrointestinal: No symptoms reported Genitourinary: No symptoms reported Male Genitourinary: No symptoms reported Musculoskeletal: Joint pain. denies: Joint swelling Skin: No symptoms reported Hematologic/Lymphatic: No symptoms reported Neurological/Psychological: No symptoms reported Physical Exam - Vital signs Vitals: Temp 98.5 F 03/28/20 18:02 Interpretation: Normal - General General appearance: Appears well, Alert - HEENT Head: Normocephalic, Atraumatic Eyes: Normal Pupils: PERRL - Respiratory Respiratory status: No respiratory distress Chest status: Nontender Breath sounds: Normal Chest palpation: Normal - Cardiovascular Rhythm: Regular Heart sounds: Normal auscultation Murmur: No - Abdominal Inspection: Normal Distension: No distension Bowel sounds: Normal Tenderness: Nontender Organomegaly: No organomegaly - Back Back: Normal, Nontender - Extremities General upper extremity: Normal inspection, Nontender, Normal color, Normal ROM, Normal temperature General lower extremity: Normal color, Normal temperature. No: Abdulkadir's sign Hip: Tender, Pain with ROM, Unable to bear weight, Other - Outward rotation to the leg when I first examined him - Neurological Neuro grossly intact: Yes Cognition: Normal Orientation: AAOx4 Juan Coma Scale Eye Opening: Spontaneous Langlois Coma Scale Verbal: Oriented Juan Coma Scale Motor: Obeys Commands Langlois Coma Scale Total: 15 Speech: Normal Motor strength normal: LUE, RUE, LLE, RLE Sensory: Normal - Psychological Associated symptoms: Normal affect, Normal mood - Skin Skin Temperature: Warm Skin Moisture: Dry Skin Color: Normal Course - Re-evaluation Re-evalutation: 03/29/20 00:18 Patient was able to move his leg bend his knee and actually transfer from bed to chair before discharge. The x-ray was negative for any acute processes the CTs were negative for any acute processes. He did have chronic changes. His hip replacement was in place with no new fractures. Patient was treated with Percocet while in the emergency room. He states he did have pain medicine at home. He stated he would follow-up with the orthopedic podiatrist and continue to do his therapy as instructed. - Vital Signs Vital signs: Temp Pulse Resp BP Pulse Ox 98 F 99 16 149/77 H 98 03/28/20 19:57 03/28/20 19:57 03/28/20 19:57 03/28/20 19:57 03/28/20 19:57 - Laboratory Result Diagrams: 03/28/20 18:50 03/28/20 18:50 Laboratory results interpreted by me: 03/28/20 18:50 RBC 3.83 L Hgb 13.2 L MCV 100 H MCH 34.5 H RDW 14.5 H - Diagnostic Test Radiology reviewed: Image reviewed, Reports reviewed Discharge - Discharge Clinical Impression: Pain in left hip Fall Qualifiers: Encounter type: initial encounter Qualified Code(s): W19.XXXA - Unspecified fall, initial encounter Head injury Qualifiers: Encounter type: initial encounter Qualified Code(s): S09.90XA - Unspecified injury of head, initial encounter Low back pain Qualifiers: Chronicity: chronic Back pain laterality: bilateral Sciatica presence: with sciatica Sciatica laterality: bilateral sciatica Qualified Code(s): M54.42 - Lumbago with sciatica, left side Condition: Stable Disposition: HOME, SELF-CARE Additional Instructions: HEAD INJURY PRECAUTIONS: At this point, there is no evidence that your head injury is serious. Observation is necessary, however. Take only clear liquids for the first few hours, unless told otherwise by the doctor. If no pain medication was prescribed, you may take acetaminophen according to the directions on the bottle. Do not take any medication that may alter your level of alertness (unless you've discussed it with the doctor first). Limit activity for the first 24 hours. Bed rest is best. During the first 24 hours, check to see approximately every two to three hours that the patient is easily arousable, responds normally, and can perform common tasks such as walking without difficulty. Contact your doctor or go to the hospital if any of the following things occur: Persistent vomiting, difficulty in arousing the patient, worsening or continued headache, or failure to improve as expected. Head injuries can cause symptoms that persist for a few days or even a few weeks. MUSCLE STRAIN: You have strained a muscle -- torn the fibers within the muscle. This often occurs with strenuous exertion, or during an injury that suddenly stretches the muscle. The seriousness of a strain varies. Some strains heal within days, others cause problems for months. X-rays cannot show a muscle strain. X-rays are taken only if symptoms suggest that a fracture could be present. The usual treatment of a muscle strain is rest and ice packs. Sometimes, a sling, splint, or crutches may be necessary to rest the muscle. The muscle can be used again once pain subsides. Severe strains require a special exercise and stretching program to prevent permanent stiffness and disability. Your doctor will advise you if this will be necessary. Call the doctor immediately if pain or swelling becomes severe, or if numb ness or discoloration develop. CONTUSION: Your injury has resulted in a contusion -- a crushing of the deep tissues. No injury to important structures was detected during the physician's exam. Contusions vary in the amount of pain they cause, and in the length of time required for healing. Typically, the area will become bruised, and will remain painful to touch for two or three weeks. However, most patients are back to working and playing within a few days. After the initial period of rest and cold-packs, your symptoms (together with the doctor's recommendations) will determine how rapidly you can get back to full activity. Usually this means "do what feels okay, but don't do things that hurt." If re-examination was recommended, it's important to follow up as instruct ed. Call the doctor or return any time if pain increases, if swelling becomes severe, if you develop numbness or weakness in an injured extremity, or if any other alarming symptoms occur. LOW BACK PAIN: Three out of every four people will have an episode of disabling back pain during their lifetime. Most commonly the pain is due to straining of the muscles and ligaments in the low back. Usual treatment includes: (1) Rest on a firm surface. Avoid lying on your stomach. (2) Ice pack the painful area. After a few days, gentle heat may be used intermittently to relax the area, or ice packs can be continued. (3) Medication may be needed -- muscle relaxers and antiinflammatory medicines are commonly used. (4) As the back improves, exercises are prescribed to strengthen the back and abdominal muscles. Your doctor will advise you on the proper care for your back at each stage in your recovery. You may be better in a few days -- or healing may take several weeks. If new symptoms of a "herniated disc" (radiation of pain, numbness, or tingling down the back of the leg or weakness in the leg) occur, you should be re-examined. Further testing may be necessary. USE OF TYLENOL (ACETAMINOPHEN): Acetaminophen may be taken for pain relief or fever control. It's much safer than aspirin, offering a wider range of "safe" dosages. It is safe during . Some brand names are Tylenol, Panadol, Datril, Anacin 3, Tempra, and Liquiprin. Acetaminophen can be repeated every four hours. The following are maximum recommended dosages: WEIGHT Dose Drops Elixir Chewable(80mg) (LBS.) drprs=droppers tsp=teaspoon 6 40 mg 0.4 ml (1/2) 6-11 80 mg 0.8 ml (full) tsp 1 tab 12-16 120 mg 1 1/2 drprs 3/4 tsp 1 1/2 tabs 17-23 160 mg 2 drprs 1 tsp 2 tabs 24-30 240 mg 3 drprs 1 1/2 tsp 3 tabs 30-35 320 mg 2 tsp 4 tabs 36-41 360 mg 2 1/4 tsp 4 1/2 tabs 42-47 400 mg 2 1/2 tsp 5 tabs 48-53 480 mg 3 tsp 6 tabs 54-59 520 mg 3 1/4 tsp 6 1/2 tabs 60-64 560 mg 3 1/2 tsp 7 tabs 65-70 600 mg 3 3/4 tsp 7 1/2 tabs 71-76 640 mg 4 tsp 8 tabs 77-82 720 mg 4 1/2 tsp 9 tabs 83-88 800 mg 5 tsp 10 tabs >89 pounds or adults 650 mg to 900 mg Acetaminophen can be repeated every four hours. Maximum dose not to exceed 4000 mg a day. These maximum recommended dosages are slightly higher than the dosages written on the product container, but these dosages are very safe and below the toxic dosage for acetaminophen. ICE PACKS: Apply ice packs frequently against the painful area. Many different schedules are recommended, such as "20 minutes on, 20 minutes off" or "one hour ice, two hours rest." If you need to work, you may need to go longer between ice treatments. You should plan to have the area ice packed AT LEAST one fourth of the time. The ice should be applied over the wrap, tape, or splint, or over a layer of cloth -- not directly against the skin. Some ice bags have a built-in cloth and can be put directly on the skin. WARM PACKS: After approximately two days, apply gentle heat (such as a heating pad or hot water bottle) for about 20 to 30 minutes about every two hours -- at least four times daily. Warmth and elevation will help you make a more rapid recovery, and will ease the pain considerably. Do not use HOT heat, and never apply heat for longer than 30 minutes. The continuous heat can invisibly damage skin and muscles -- even when no burn is seen on the surface. Damaged muscles can make you MORE sore. ORAL NARCOTIC MEDICATION: You have been given a Percocet for pain control. This medication is a narcotic. It's best taken with food, as nausea can result if taken on an empty stomach. Don't operate machinery or drive within six hours of taking this medication. Do not combine this medicine with alcohol, or with any medication which can cause sedation (such as cold tablets or sleeping pills) unless you get permission from the physician. Narcotics tend to cause constipation. If possible, drink plenty of fluids and eat a diet high in fiber and fruits. Continue your exercises as you were instructed by orthopedic podiatrist. Please take your medications that your orthopedic podiatrist has prescribed for your hip pain. Please use ice and warm packs for your pain as described above. Please call your orthopedic podiatrist on Tuesday to follow-up. Your CT of the head does not show any acute injuries. Your CT of the L-spine shows you still have the bulging disc that you state you know you have had in the past. Please follow-up with your orthopedic podiatrist for these also place FOLLOW-UP CARE: If you have been referred to a physician for follow-up care, call the physicians office for an appointment as you were instructed or within the next two days. If you experience worsening or a significant change in your symptoms, notify the physician immediately or return to the Emergency Department at any time for re-evaluation. Referrals: SARA YAÑEZ DO [Primary Care Provider] - Follow up as needed DAVION SANTIAGO MD [ACTIVE PROVISIONAL STAFF] - 03/31/20
[2020-03-28 20:01] VITALS: BP 149/77
== END 2020-03-28 20:16 | disposition home or self-care (01) ==
LOC: ER 17:51
DX: S09.90XA Unspecified injury of head, initial encounter (principal); S79.912A Unspecified injury of left hip, initial encounter; V00.891A Fall from other pedestrian conveyance, initial encounter; Y92.481 Parking lot as the place of occurrence of the external cause; F17.210 Nicotine dependence, cigarettes, uncomplicated; I10 Essential (primary) hypertension; J44.9 Chronic obstructive pulmonary disease, unspecified; Z96.642 Presence of left artificial hip joint
CPT/HCPCS: 99284; 36415; 85025; 73502; 70450; 72131; A9270